=== PATIENT | female | born 1985 | race Caucasian/White ===

== ENCOUNTER 2016-12-09 19:06 | Emergency (ER) | payer MEDICARE, OTHER ==
--- NOTE | 2016-12-09 20:20 | ED ---
Lower Extremity Injury HPI - General Chief Complaint: Extremity Injury, Lower Stated Complaint: Ankle Pain Time Seen by Provider: 12/09/16 19:45 Source: patient, RN notes reviewed, old records reviewed Mode of arrival: wheelchair Limitations: no limitations - History of Present Illness Initial Comments: 31-year-old female chief complaint of left ankle pain and swelling for the past day. She reports that she's been walking more frequently over the past 3 days. She denies injury to cause the pain. She noticed the swelling and pain is mainly over the dorsum aspect of the foot and lateral aspect of the ankle. She reports that she's had some previous fractures and sprains over this foot and ankle. Denies any distal paresthesias. Reports that she has full range of motion of the toes. Patient has pain with flexion extension of the ankle.Patient denies any recent fever, chills, shortness of breath, chest pain, back pain, abdominal pain, nausea vomiting, numbness or tingling, dysuria or hematuria, constipation or diarrhea, headaches or visual changes, or any other current symptoms - Related Data Home Medications Medication Instructions Recorded Confirmed Ibuprofen [Motrin] 800 mg PO Q6H PRN 12/09/16 12/09/16 Previous Rx's Medication Instructions Recorded Ibuprofen [Motrin] 600 mg PO Q8HR PRN #20 tab 12/09/16 Allergies Allergy/AdvReac Type Severity Reaction Status Date / Time Sulfa (Sulfonamide Allergy Rash/Hives Verified 12/09/16 19:48 Antibiotics) Review of Systems ROS Statement: Those systems with pertinent positive or pertinent negative responses have been documented in the HPI. ROS Other: All systems not noted in ROS Statement are negative. Past Medical History Past Medical History: Asthma, Hypertension Additional Past Medical History / Comment(s): frequent headache, "back pain", ovarian cysts History of Any Multi-Drug Resistant Organisms: MRSA Date of last positivie culture/infection: 2012 MDRO Source:: Right thigh Past Surgical History: Tonsillectomy Additional Past Surgical History / Comment(s): removal of MRSA Past Psychological History: No Psychological Hx Reported Smoking Status: Current every day smoker Past Alcohol Use History: Occasional Past Drug Use History: None Reported General Exam Limitations: no limitations Course Vital Signs 12/09/16 19:36 Temperature 99.6 F Pulse Rate 97 Respiratory 20 Rate Blood Pressure 180/94 O2 Sat by Pulse 99 Oximetry Disposition Clinical Impression: Left ankle sprain Disposition: HOME SELF-CARE Condition: Good Instructions: Ankle Sprain (ED) Additional Instructions: Patient advised to rest, ice, and elevate extremity. Follow-up with orthopedic physician. Recommending using crutches for the next week or so to limit weightbearing activities. Return to the emergency department if any alarming signs or symptoms occur. Prescriptions: Ibuprofen [Motrin] 600 mg PO Q8HR PRN #20 tab PRN Reason: Pain Referrals: Chen Bennett MD [Primary Care Provider] - 1-2 days Time of Disposition: 20:55
--- NOTE | 2016-12-09 20:30 | XR ---
EXAMINATION TYPE: XR ankle complete LT DATE OF EXAM: 12/09/2016 COMPARISON: NONE HISTORY: Ankle pain TECHNIQUE: 3 views FINDINGS: There is an Achilles calcaneal spur. Ankle mortise is anatomic. There is some spurring at t he medial malleolus. IMPRESSION: No acute abnormality of the left ankle.
[2016-12-09 21:01] VITALS: BP 128/70; PULSE 69; RESP 16; TEMP 98.2
== END 2016-12-09 21:01 | disposition home or self-care (01) ==
LOC: EC 19:06
DX: S93.402A Sprain of unspecified ligament of left ankle, initial encounter (principal); F17.200 Nicotine dependence, unspecified, uncomplicated; Z88.2 Allergy status to sulfonamides; X50.9XXA Other and unspecified overexertion or strenuous movements or postures, initial encounter; Y93.01 Activity, walking, marching and hiking
CPT/HCPCS: 99284

== ENCOUNTER 2017-01-03 19:53 | Emergency (ER) | payer MEDICARE, OTHER ==
[2017-01-03] MEDS ORDERED: SODIUM CHLORIDE 0.9% 500 ML IV STA (20:01)
[2017-01-03] MEDS ORDERED: FAMOTIDINE 20 MG/2 ML VIAL IV STA (20:16)
[2017-01-03] MEDS ORDERED: ONDANSETRON 4 MG/2 ML VIAL IVP STA (20:16)
--- NOTE | 2017-01-03 20:19 | ED ---
Abdominal Pain HPI - General Chief Complaint: Abdominal Pain Stated Complaint: Abd Pain Time Seen by Provider: 01/03/17 20:01 Source: patient, RN notes reviewed Mode of arrival: ambulatory Limitations: no limitations - History of Present Illness Initial Comments: This a 31-year-old female presents emergency Department chief complaint abdominal pain times one week. Patient states primarily in her upper abdomen though she does complain of mild diffuse. Patient complains of that she's had increased acid reflux an episode of nausea vomiting today. She states she had a bowel movement today slightly firmer than usual though she denies any melena or hematochezia. Patient denies any fever, chills, dysuria hematuria. Denies any chance of . Patient had no prior abdominal surgeries. - Related Data Home Medications Medication Instructions Recorded Confirmed Ibuprofen [Motrin] 800 mg PO Q6H PRN 12/09/16 12/09/16 Previous Rx's Medication Instructions Recorded Ibuprofen [Motrin] 600 mg PO Q8HR PRN #20 tab 12/09/16 Lisinopril [Zestril] 10 mg PO DAILY #14 tab 01/03/17 Omeprazole [PriLOSEC] 20 mg PO AC-BRKFST #14 cap 01/03/17 Allergies Allergy/AdvReac Type Severity Reaction Status Date / Time Sulfa (Sulfonamide Allergy Rash/Hives Verified 01/03/17 19:59 Antibiotics) Review of Systems ROS Statement: Those systems with pertinent positive or pertinent negative responses have been documented in the HPI. ROS Other: All systems not noted in ROS Statement are negative. Past Medical History Past Medical History: Asthma, Hypertension Additional Past Medical History / Comment(s): frequent headache, "back pain", ovarian cysts History of Any Multi-Drug Resistant Organisms: MRSA Date of last positivie culture/infection: 2012 MDRO Source:: Right thigh Past Surgical History: Tonsillectomy Additional Past Surgical History / Comment(s): removal of MRSA Past Psychological History: No Psychological Hx Reported Smoking Status: Current every day smoker Past Alcohol Use History: Occasional Past Drug Use History: None Reported General Exam Limitations: no limitations General appearance: alert, in no apparent distress Head exam: Present: atraumatic, normocephalic, normal inspection Respiratory exam: Present: normal lung sounds bilaterally. Absent: respiratory distress, wheezes, rales, rhonchi, stridor Cardiovascular Exam: Present: regular rate, normal rhythm, normal heart sounds. Absent: systolic murmur, diastolic murmur, rubs, gallop, clicks GI/Abdominal exam: Present: soft, tenderness (Mild to moderate epigastric tenderness, mild diffuse), normal bowel sounds. Absent: distended, guarding, rebound, rigid Neurological exam: Present: alert, oriented X3, CN II-XII intact Skin exam: Present: warm, dry, intact, normal color. Absent: rash Course Vital Signs 01/03/17 19:54 Temperature 98.4 F Pulse Rate 107 H Respiratory 18 Rate Blood Pressure 215/96 O2 Sat by Pulse 100 Oximetry Medical Decision Making - Medical Decision Making 31-year-old female presented emergency from for epigastric discomfort, mild hard stool. Patient may have minimal constipation. Patient epigastric pain is related to gastritis and GERD symptoms. Patient was given Pepcid emergency department. Patient was started on omeprazole home. Patient states that she has a history of hypertension though she has not been taking medications because she does not like the way it makes her feel. Patient was given some phone emergency department. Patient be started on lisinopril at home patient parents were discussed. - Lab Data Result diagrams: 01/03/17 20:10 01/03/17 20:10 Lab Results 01/03/17 01/03/17 01/03/17 Range/Units 20:10 20:10 20:10 WBC 11.8 H (3.8-10.6) k/uL RBC 4.78 (3.80-5.40) m/uL Hgb 13.2 (11.4-16.0) gm/dL Hct 40.1 (34.0-46.0) % MCV 84.0 (80.0-100.0) fL MCH 27.6 (25.0-35.0) pg MCHC 32.9 (31.0-37.0) g/dL RDW 16.9 H (11.5-15.5) % Plt Count 294 (150-450) k/uL Neutrophils % 71 % Lymphocytes % 20 % Monocytes % 4 % Eosinophils % 4 % Basophils % 0 % Neutrophils # 8.4 H (1.3-7.7) k/uL Lymphocytes # 2.4 (1.0-4.8) k/uL Monocytes # 0.5 (0-1.0) k/uL Eosinophils # 0.4 (0-0.7) k/uL Basophils # 0.0 (0-0.2) k/uL Anisocytosis Slight Sodium 141 (137-145) mmol/L Potassium 3.8 (3.5-5.1) mmol/L Chloride 104 (98-107) mmol/L Carbon Dioxide 26 (22-30) mmol/L Anion Gap 11 mmol/L BUN 5 L (7-17) mg/dL Creatinine 0.62 (0.52-1.04) mg/dL Est GFR (MDRD) Af Amer >60 (>60 ml/min/1.73 sqM) Est GFR (MDRD) Non-Af >60 (>60 ml/min/1.73 sqM) Glucose 104 H (74-99) mg/dL Calcium 9.4 (8.4-10.2) mg/dL Total Bilirubin 0.2 (0.2-1.3) mg/dL AST 22 (14-36) U/L ALT 45 (9-52) U/L Alkaline Phosphatase 113 (38-126) U/L Total Protein 6.9 (6.3-8.2) g/dL Albumin 4.1 (3.5-5.0) g/dL Amylase 34 (30-110) U/L Lipase 96 (23-300) U/L Urine Color Urine Appearance (Clear) Urine pH (5.0-8.0) Ur Specific [place] (1.001-1.035) Urine Protein (Negative) Urine Glucose (UA) (Negative) Urine Ketones (Negative) Urine Blood (Negative) Urine Nitrite (Negative) Urine Bilirubin (Negative) Urine Urobilinogen (<2.0) mg/dL Ur Leukocyte Esterase (Negative) Urine RBC (0-5) /hpf Urine WBC (0-5) /hpf Ur Squamous Epith Cells (0-4) /hpf Urine Bacteria (None) /hpf Urine Mucus (None) /hpf Urine HCG, Qual Not Detected (Not Detectd) 01/03/17 Range/Units 20:10 WBC (3.8-10.6) k/uL RBC (3.80-5.40) m/uL Hgb (11.4-16.0) gm/dL Hct (34.0-46.0) % MCV (80.0-100.0) fL MCH (25.0-35.0) pg MCHC (31.0-37.0) g/dL RDW (11.5-15.5) % Plt Count (150-450) k/uL Neutrophils % % Lymphocytes % % Monocytes % % Eosinophils % % Basophils % % Neutrophils # (1.3-7.7) k/uL Lymphocytes # (1.0-4.8) k/uL Monocytes # (0-1.0) k/uL Eosinophils # (0-0.7) k/uL Basophils # (0-0.2) k/uL Anisocytosis Sodium (137-145) mmol/L Potassium (3.5-5.1) mmol/L Chloride (98-107) mmol/L Carbon Dioxide (22-30) mmol/L Anion Gap mmol/L BUN (7-17) mg/dL Creatinine (0.52-1.04) mg/dL Est GFR (MDRD) Af Amer (>60 ml/min/1.73 sqM) Est GFR (MDRD) Non-Af (>60 ml/min/1.73 sqM) Glucose (74-99) mg/dL Calcium (8.4-10.2) mg/dL Total Bilirubin (0.2-1.3) mg/dL AST (14-36) U/L ALT (9-52) U/L Alkaline Phosphatase (38-126) U/L Total Protein (6.3-8.2) g/dL Albumin (3.5-5.0) g/dL Amylase (30-110) U/L Lipase (23-300) U/L Urine Color Yellow Urine Appearance Cloudy H (Clear) Urine pH 6.5 (5.0-8.0) Ur Specific [place] 1.016 (1.001-1.035) Urine Protein Trace H (Negative) Urine Glucose (UA) Negative (Negative) Urine Ketones Negative (Negative) Urine Blood Negative (Negative) Urine Nitrite Negative (Negative) Urine Bilirubin Negative (Negative) Urine Urobilinogen <2.0 (<2.0) mg/dL Ur Leukocyte Esterase Negative (Negative) Urine RBC 2 (0-5) /hpf Urine WBC 1 (0-5) /hpf Ur Squamous Epith Cells 8 H (0-4) /hpf Urine Bacteria Occasional H (None) /hpf Urine Mucus Rare H (None) /hpf Urine HCG, Qual (Not Detectd) Disposition Clinical Impression: Abdominal pain, Gastritis, Hypertension Disposition: HOME SELF-CARE Condition: Stable Instructions: Gastritis (ED) Additional Instructions: Please return to the Emergency Department if symptoms worsen or any other concerns. Prescriptions: Lisinopril [Zestril] 10 mg PO DAILY #14 tab Omeprazole [PriLOSEC] 20 mg PO AC-BRKFST #14 cap Referrals: Chen Bennett MD [Primary Care Provider] - 1-2 days Time of Disposition: 20:43
[2017-01-03] MEDS ORDERED: LISINOPRIL 10 MG TAB PO STA (20:21)
[2017-01-03 20:28] LABS: Anisocytosis Slight; Basophils % (A) 0 %; CH 28.2; CHCM 33.7; Eosinophils # (A) 0.4 k/uL (0-0.7); Eosinophils % (A) 4 %; HCT 40.1 % (34.0-46.0); HDW 3.17; HGB 13.2 gm/dL (11.4-16.0); Luc # (Auto) 0.15; Luc % (Auto) 1; Lymphocytes # (A) 2.4 k/uL (1.0-4.8); Lymphocytes % (A) 20 %; MCH 27.6 pg (25.0-35.0); MCHC 32.9 g/dL (31.0-37.0); Mean Platelet Volume 7.5; Monocytes # (A) 0.5 k/uL (0-1.0); Monocytes % (A) 4 %; Neutrophils # (A) 8.4 k/uL (1.3-7.7); Neutrophils % (A) 71 %; RBC 4.78 m/uL (3.80-5.40); RDW 16.9 % (11.5-15.5); WBC 11.8 k/uL (3.8-10.6); WBC (Perox) 11.91
[2017-01-03 20:32] LABS: Appearance,Urine Cloudy (Clear); Bacteria,Urine Occasional /hpf; Bilirubin,Urine Negative (Negative); Glucose,Urine (UA) Negative (Negative); Ketones,Urine Negative (Negative); Leukocyte Esterase,Urine Negative (Negative); Mucus,Urine Rare /hpf; Nitrite,Urine Negative (Negative); PH, Urine 6.5 (5.0-8.0); Particle Count 6714; Protein,Urine Trace (Negative); RBC,Urine 2 /hpf (0-5); Specific Gravity,Urine 1.016 (1.001-1.035); Squamous Epithelial Cell,Urine 8 /hpf (0-4); UA Billing (MACRO vs. MICRO) MICRO; Urobilinogen,Urine <2.0 mg/dL (<2.0); WBC,Urine 1 /hpf (0-5)
--- NOTE | 2017-01-03 20:33 | XR ---
EXAMINATION TYPE: XR KUB DATE OF EXAM: 01/03/2017 COMPARISON: NONE HISTORY: Epigastric pain TECHNIQUE: 2 views FINDINGS: There is no sign of intestinal obstruction or pneumoperitoneum. Fecal pattern is normal. Millicent ng bases are clear. There are no pathologic calcifications over the kidneys. IMPRESSION: Nonacute abdomen. No change.
[2017-01-03 20:38] LABS: ALT 45 U/L (9-52); AST 22 U/L (14-36); Alkaline Phosphatase 113 U/L (38-126); Amylase 34 U/L (30-110); Anion Gap 11 mmol/L; Blood Urea Nitrogen 5 mg/dL (7-17); Calcium 9.4 mg/dL (8.4-10.2); Carbon Dioxide 26 mmol/L (22-30); Chloride 104 mmol/L (98-107); Glucose 104 mg/dL (74-99); Non-African American GFR(MDRD) >60 (>60 ml/min/1.73 sqM); Potassium 3.8 mmol/L (3.5-5.1); Sodium 141 mmol/L (137-145); Total Bilirubin 0.2 mg/dL (0.2-1.3); Total Protein 6.9 g/dL (6.3-8.2)
[2017-01-03 21:25] VITALS: BP 183/88; PULSE 79; RESP 18; TEMP 98.1
== END 2017-01-03 21:25 | disposition home or self-care (01) ==
LOC: EC 19:53
DX: K29.70 Gastritis, unspecified, without bleeding (principal); I10 Essential (primary) hypertension; F17.200 Nicotine dependence, unspecified, uncomplicated; Z88.2 Allergy status to sulfonamides
CPT/HCPCS: 99284; 96374; 96375; 96361; 36415; 80053; 82150; 83690; 85025; 81001; 81025; 74000; J2405

== ENCOUNTER 2017-01-08 09:21 | Emergency (ER) | payer MEDICARE, OTHER ==
[2017-01-08] MEDS ORDERED: KETOROLAC 30 MG/ML 1 ML VIAL IVP STA (10:16)
[2017-01-08] MEDS ORDERED: ONDANSETRON 4 MG/2 ML VIAL IVP STA (10:16)
[2017-01-08 10:49] LABS: Anisocytosis Slight; Basophils % (A) 0 %; CH 27.2; CHCM 33.1; Eosinophils # (A) 0.2 k/uL (0-0.7); Eosinophils % (A) 3 %; HCT 42.3 % (34.0-46.0); HGB 14.1 gm/dL (11.4-16.0); Luc % (Auto) 2; Lymphocytes # (A) 1.9 k/uL (1.0-4.8); Lymphocytes % (A) 20 %; MCH 27.6 pg (25.0-35.0); MCHC 33.4 g/dL (31.0-37.0); MCV 82.8 fL (80.0-100.0); Mean Platelet Volume 6.9; Monocytes # (A) 0.4 k/uL (0-1.0); Monocytes % (A) 5 %; Neutrophils # (A) 6.8 k/uL (1.3-7.7); Neutrophils % (A) 71 %; RBC 5.11 m/uL (3.80-5.40); RDW 16.1 % (11.5-15.5); WBC 9.6 k/uL (3.8-10.6); WBC (Perox) 9.69
[2017-01-08 10:55] LABS: Appearance,Urine Cloudy (Clear); Bilirubin,Urine Negative (Negative); Glucose,Urine (UA) Negative (Negative); Ketones,Urine Negative (Negative); Leukocyte Esterase,Urine Negative (Negative); Mucus,Urine Rare /hpf; Nitrite,Urine Negative (Negative); PH, Urine 5.5 (5.0-8.0); Particle Count 7251; Protein,Urine Trace (Negative); Specific Gravity,Urine 1.018 (1.001-1.035); Squamous Epithelial Cell,Urine 23 /hpf (0-4); UA Billing (MACRO vs. MICRO) MICRO; Urobilinogen,Urine <2.0 mg/dL (<2.0); WBC,Urine 2 /hpf (0-5)
[2017-01-08 10:56] LABS: ALT 33 U/L (9-52); AST 19 U/L (14-36); Alkaline Phosphatase 118 U/L (38-126); Anion Gap 11 mmol/L; Blood Urea Nitrogen 6 mg/dL (7-17); Calcium 9.3 mg/dL (8.4-10.2); Carbon Dioxide 24 mmol/L (22-30); Chloride 105 mmol/L (98-107); Glucose 99 mg/dL (74-99); Non-African American GFR(MDRD) >60 (>60 ml/min/1.73 sqM); Potassium 4.4 mmol/L (3.5-5.1); Sodium 140 mmol/L (137-145); Total Bilirubin 0.3 mg/dL (0.2-1.3); Total Protein 6.8 g/dL (6.3-8.2)
--- NOTE | 2017-01-08 11:26 | US ---
EXAMINATION TYPE: US transvaginal DATE OF EXAM: 01/08/2017 COMPARISON: NONE CLINICAL HISTORY: Pain. Severe pelvic pain today especially at left ovary with TV US; irregular mense s TECHNIQUE: Transvaginal (TV) Date of LMP: November 2016 EXAM MEASUREMENTS: Uterus: 8.3 x 4.9 x 4.2 cm Endometrial Stripe: 1.2 cm Right Ovary: 2.9 x 2.3 x 2.2 cm Left Ovary: 3.6 x 2.6 x 2.5 cm 1. Uterus: Anteverted; small Nabothian cyst in CX = 0.2 x 0.2 x 0.2cm 2. Endometrium: thickness wnl for LMP 1 month prior 3. Right Ovary: small follicle seen = 0.3 x 0.3 x 0.2cm 4. Left Ovary: small follicle seen as hypoechoic cyst = 1.0 x 0.9 x 0.9cm ; area of pain per patient with TV US Spectral, color and waveform doppler imaging shows good arterial and venous flow within the ovaries ; there is no evidence for ovarian torsion. 5. Bilateral Adnexa: wnl 6. Posterior cul-de-sac: wnl IMPRESSION: No significant abnormality is evident.
--- NOTE | 2017-01-08 11:45 | ED ---
Female Urogenital HPI - General Chief complaint: Urogenital Stated complaint: Abdominal pain Time Seen by Provider: 01/08/17 09:33 Source: patient, RN notes reviewed, old records reviewed Mode of arrival: EMS Limitations: no limitations - History of Present Illness Initial comments: His is a 31-year-old female chief complaint of severe left-sided pelvic pain. Patient reports that she thinks that she has a left ovarian cyst that burst. She reports that she woke up with sudden onset of pain and feel warm sensation over her abdomen. Patient reports that she's had no urinary symptoms including dysuria or hematuria. She denies any change in bowel movements. She denies any nausea or vomiting. Patient states that she's had this happen before and similar symptoms were found to be a ruptured ovarian cyst. Patient states that she is no chance of . She states she had her last menstrual cycle approximately 3 weeks ago.Patient denies any recent fever, chills, shortness of breath, chest pain, back pain, abdominal pain, nausea vomiting, numbness or tingling, dysuria or hematuria, constipation or diarrhea, headaches or visual changes, or any other current symptoms - Related Data Home Medications Medication Instructions Recorded Confirmed Varenicline [Chantix] 0.5 mg PO DIRECTED 01/08/17 01/08/17 Previous Rx's Medication Instructions Recorded Lisinopril [Zestril] 10 mg PO DAILY #14 tab 01/03/17 Omeprazole [PriLOSEC] 20 mg PO AC-BRKFST #14 cap 01/03/17 Ibuprofen [Motrin] 800 mg PO TID #30 tab 01/08/17 traMADol HCl [Ultram] 50 mg PO Q6H PRN #10 tab 01/08/17 Allergies Allergy/AdvReac Type Severity Reaction Status Date / Time Sulfa (Sulfonamide Allergy Rash/Hives Verified 01/08/17 09:51 Antibiotics) Review of Systems ROS Statement: Those systems with pertinent positive or pertinent negative responses have been documented in the HPI. ROS Other: All systems not noted in ROS Statement are negative. Past Medical History Past Medical History: Asthma, Hypertension Additional Past Medical History / Comment(s): frequent headache, "back pain", ovarian cysts History of Any Multi-Drug Resistant Organisms: MRSA Date of last positivie culture/infection: 2012 MDRO Source:: Right thigh Past Surgical History: Tonsillectomy Additional Past Surgical History / Comment(s): removal of MRSA Past Psychological History: No Psychological Hx Reported Smoking Status: Current every day smoker Past Alcohol Use History: Occasional Past Drug Use History: None Reported General Exam - General Exam Comments Initial Comments: 31-year-old female. No acute distress. Limitations: no limitations General appearance: alert, in no apparent distress Head exam: Present: atraumatic, normocephalic, normal inspection Eye exam: Present: normal appearance ENT exam: Present: normal exam, mucous membranes moist Neck exam: Present: normal inspection. Absent: tenderness, meningismus, lymphadenopathy Respiratory exam: Present: normal lung sounds bilaterally. Absent: respiratory distress, wheezes, rales, rhonchi, stridor Cardiovascular Exam: Present: regular rate, normal rhythm, normal heart sounds. Absent: systolic murmur, diastolic murmur, rubs, gallop, clicks GI/Abdominal exam: Present: soft, normal bowel sounds. Absent: distended, tenderness, guarding, rebound, rigid Extremities exam: Present: normal inspection, full ROM, normal capillary refill. Absent: tenderness, pedal edema, joint swelling, calf tenderness Back exam: Present: normal inspection Neurological exam: Present: alert, oriented X3, CN II-XII intact Psychiatric exam: Present: normal affect, normal mood Course Vital Signs 01/08/17 01/08/17 09:23 11:33 Temperature 98.8 F Pulse Rate 95 76 Respiratory 18 18 Rate Blood Pressure 188/102 153/76 O2 Sat by Pulse 98 97 Oximetry Medical Decision Making - Medical Decision Making 31-year-old female chief complaint of left-sided pelvic pain acute onset. Patient transvaginal ultrasound showed no evidence of any abnormalities. Laboratory was reviewed and unremarkable. Denies any vaginal discharge or concern for STDs. No signs of urinary tract infection. Patient will be discharged at this time with a short course of a temperature medicine. Discussed close follow-up with care physician. Patient understands treatment plan will comply. - Lab Data Result diagrams: 01/08/17 10:30 01/08/17 10:30 Lab Results 01/08/17 01/08/17 01/08/17 Range/Units 10:30 10:30 10:30 WBC 9.6 (3.8-10.6) k/uL RBC 5.11 (3.80-5.40) m/uL Hgb 14.1 (11.4-16.0) gm/dL Hct 42.3 (34.0-46.0) % MCV 82.8 (80.0-100.0) fL MCH 27.6 (25.0-35.0) pg MCHC 33.4 (31.0-37.0) g/dL RDW 16.1 H (11.5-15.5) % Plt Count 302 (150-450) k/uL Neutrophils % 71 % Lymphocytes % 20 % Monocytes % 5 % Eosinophils % 3 % Basophils % 0 % Neutrophils # 6.8 (1.3-7.7) k/uL Lymphocytes # 1.9 (1.0-4.8) k/uL Monocytes # 0.4 (0-1.0) k/uL Eosinophils # 0.2 (0-0.7) k/uL Basophils # 0.0 (0-0.2) k/uL Anisocytosis Slight Sodium 140 (137-145) mmol/L Potassium 4.4 (3.5-5.1) mmol/L Chloride 105 (98-107) mmol/L Carbon Dioxide 24 (22-30) mmol/L Anion Gap 11 mmol/L BUN 6 L (7-17) mg/dL Creatinine 0.53 (0.52-1.04) mg/dL Est GFR (MDRD) Af Amer >60 (>60 ml/min/1.73 sqM) Est GFR (MDRD) Non-Af >60 (>60 ml/min/1.73 sqM) Glucose 99 (74-99) mg/dL Calcium 9.3 (8.4-10.2) mg/dL Total Bilirubin 0.3 (0.2-1.3) mg/dL AST 19 (14-36) U/L ALT 33 (9-52) U/L Alkaline Phosphatase 118 (38-126) U/L Total Protein 6.8 (6.3-8.2) g/dL Albumin 4.1 (3.5-5.0) g/dL Urine Color Urine Appearance (Clear) Urine pH (5.0-8.0) Ur Specific [place] (1.001-1.035) Urine Protein (Negative) Urine Glucose (UA) (Negative) Urine Ketones (Negative) Urine Blood (Negative) Urine Nitrite (Negative) Urine Bilirubin (Negative) Urine Urobilinogen (<2.0) mg/dL Ur Leukocyte Esterase (Negative) Urine WBC (0-5) /hpf Ur Squamous Epith Cells (0-4) /hpf Urine Mucus (None) /hpf Urine HCG, Qual Not Detected (Not Detectd) 01/08/17 Range/Units 10:30 WBC (3.8-10.6) k/uL RBC (3.80-5.40) m/uL Hgb (11.4-16.0) gm/dL Hct (34.0-46.0) % MCV (80.0-100.0) fL MCH (25.0-35.0) pg MCHC (31.0-37.0) g/dL RDW (11.5-15.5) % Plt Count (150-450) k/uL Neutrophils % % Lymphocytes % % Monocytes % % Eosinophils % % Basophils % % Neutrophils # (1.3-7.7) k/uL Lymphocytes # (1.0-4.8) k/uL Monocytes # (0-1.0) k/uL Eosinophils # (0-0.7) k/uL Basophils # (0-0.2) k/uL Anisocytosis Sodium (137-145) mmol/L Potassium (3.5-5.1) mmol/L Chloride (98-107) mmol/L Carbon Dioxide (22-30) mmol/L Anion Gap mmol/L BUN (7-17) mg/dL Creatinine (0.52-1.04) mg/dL Est GFR (MDRD) Af Amer (>60 ml/min/1.73 sqM) Est GFR (MDRD) Non-Af (>60 ml/min/1.73 sqM) Glucose (74-99) mg/dL Calcium (8.4-10.2) mg/dL Total Bilirubin (0.2-1.3) mg/dL AST (14-36) U/L ALT (9-52) U/L Alkaline Phosphatase (38-126) U/L Total Protein (6.3-8.2) g/dL Albumin (3.5-5.0) g/dL Urine Color Yellow Urine Appearance Cloudy H (Clear) Urine pH 5.5 (5.0-8.0) Ur Specific [place] 1.018 (1.001-1.035) Urine Protein Trace H (Negative) Urine Glucose (UA) Negative (Negative) Urine Ketones Negative (Negative) Urine Blood Negative (Negative) Urine Nitrite Negative (Negative) Urine Bilirubin Negative (Negative) Urine Urobilinogen <2.0 (<2.0) mg/dL Ur Leukocyte Esterase Negative (Negative) Urine WBC 2 (0-5) /hpf Ur Squamous Epith Cells 23 H (0-4) /hpf Urine Mucus Rare H (None) /hpf Urine HCG, Qual (Not Detectd) Disposition Clinical Impression: Pelvic pain, Left ovarian cyst Disposition: HOME SELF-CARE Condition: Good Instructions: Ovarian Cyst (ED) Additional Instructions: Follow-up with PAIN COORDINATOR. Return to the emergency department if any alarming signs or symptoms occur. Prescriptions: Ibuprofen [Motrin] 800 mg PO TID #30 tab traMADol HCl [Ultram] 50 mg PO Q6H PRN #10 tab PRN Reason: Pain Referrals: Chen Bennett MD [Primary Care Provider] - 1-2 days Time of Disposition: 11:48
[2017-01-08 12:13] VITALS: BP 150/85; PULSE 71; RESP 24; TEMP 98.4
== END 2017-01-08 12:14 | disposition home or self-care (01) ==
LOC: EC 09:21
DX: N83.202 Unspecified ovarian cyst, left side (principal); F17.200 Nicotine dependence, unspecified, uncomplicated; Z79.899 Other long term (current) drug therapy; Z88.2 Allergy status to sulfonamides
CPT/HCPCS: 36415; 80053; 85025; 81001; 81025; 87086; 93975; 76830; 99285; 96374; 96375; J2405; J1885

== ENCOUNTER → 2017-01-09 | Outpatient (CLI) | payer MEDICARE, OTHER ==
--- NOTE | 2017-01-10 11:49 | WWHP ---
DATE OF SERVICE: 01/09/2017 CHIEF COMPLAINT: The patient is here for her routine gynecologic exam. HPI: This is a 31-year-old, G0, with an LMP of 12/01/16. She states her periods have been slightly irregular during the past year and have been about every 1 to 2 months. Prior to one year ago, the periods were regular every month. She is currently not sexually active. She was sexually active earlier in the year and did use condoms. She states she was in the emergency room yesterday because of pelvic pain and she feels like she had a ruptured ovarian cyst. She states she has had problems with ovarian cysts in the past. She states she was told in the emergency room that she likely had a ruptured ovarian cyst and she did have a pelvic ultrasound yesterday. She states it has been about 2 years since her last pelvic exam. PAST MEDICAL HISTORY: Chronic hypertension, gastroesophageal reflux disease and asthma. She was also treated for MRSA in 2012 and she had this in the back of a leg. MEDICATIONS: 1. Albuterol inhaler p.r.n. 2. Omeprazole 20 mg daily. 3. Lisinopril 10 mg daily. 4. Chantix daily. 5. Motrin 800 mg p.r.n. Allergies to SULFA. PAST SURGICAL HISTORY: Tonsillectomy in the past. 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 She has no other history of STDs. SOCIAL HISTORY: She smokes about a half a pack of cigarettes per day, but is trying to quit and is currently on Chantix. She has about 3 alcohol containing drinks per month and occasionally uses marijuana. She denies any other drug use. She is currently not seeing anybody at this time and has not been sexually active for more than 4 months. She states she has had a total of 4 sexual partners in her lifetime. 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 FAMILY HISTORY: Mother has breast cancer. She also has 2 maternal aunts who also has had breast cancer and a maternal aunt who had throat cancer. A maternal uncle had prostate cancer. REVIEW OF SYSTEMS: Weight has been stable. She denies respiratory, cardiac or GI problems. PHYSICAL EXAM: Blood pressure is 128/71. Height is 5 feet 7 inches. Weight 284 pounds. Temperature 98.0. Pulse 86. This is a well-developed, obese white female who is alert and oriented x3.in no acute distress. HEENT is within normal limits. NECK: Supple without mass or thyromegaly. CHEST AND LUNGS: Clear to auscultation. HEART: Regular rate and rhythm. Breasts are without mass or discharge. Axillary exam is negative for adenopathy. BACK: Negative for CVA tenderness. Abdomen is obese soft and mildly tender in the suprapubic region and there is no rebound tenderness. There are no palpable abdominal masses. PELVIC EXAM; Normal external genitalia. Cervix and vagina appear normal. There is no unusual vaginal discharge. There is no cervical motion tenderness. There is a mild tenderness in the left adnexal area without a palpable pelvic mass. The uterus is mid position, nongravid size and nontender. There is no right adnexal mass or tenderness. Rectal vaginal exam is negative for mass or tenderness. EXTREMITIES: Nontender. ADDITIONAL STUDIES: From 01/08/17, pelvic ultrasound shows no significant abnormality. White blood cell count was 9.6. Hemoglobin 14.1. Urinalysis was unremarkable and urine hCG was negative. IMPRESSION: 1. A 31-year-old female with recent emergency room visit for lower abdominal and pelvic pain. 2. Pelvic ultrasound was negative and this may have been related to a ruptured ovarian cyst. PID is unlikely based on the lack of cervical motion tenderness and normal white blood cell count. 3. Strong family history of breast cancer including mother and 2 maternal aunts. She states her mother was approximately 40 years old and her aunts were their 40s. 4. Mild menstrual irregularity during the past year with menses about every 1 to 2 months. PLAN: 1. Pap smear was performed. 2. Self-breast examination was discussed. 3. I have recommended a baseline screening mammogram based on her family history of young women with breast cancer. 4. GC and chlamydia testing from the cervix have been obtained. 5. I have recommended thyroid testing because of her slight menstrual irregularity. She states this was drawn 2 days ago by her primary care doctor with results pending. 6. The patient will keep a menstrual calendar and return if she is having greater menstrual problems. 7. She will use the Motrin as directed for her abdominal and pelvic pain. 8. She will call if her symptoms are not improving. 9. STD prevention was discussed. I have stressed the importance of limiting sexual partners and using condoms if she is sexually active. 10. She will return in one year and [facility]
== END ==
LOC: WWCWWP 10:26
PROVIDERS: ATTEND Obstetrics & Gynecology
DX: R10.2 Pelvic and perineal pain (principal); Z11.3 Encounter for screening for infections with a predominantly sexual mode of transmission
CPT/HCPCS: 87491; 87591

== ENCOUNTER 2017-02-05 22:02 | Emergency (ER) | payer MEDICARE, OTHER ==
--- NOTE | 2017-02-05 23:17 | XR ---
EXAM: XR Left Hip With Pelvis When Performed, 3 or More Views CLINICAL HISTORY: Reason: Pain TECHNIQUE: Three or more views of the left hip, with pelvis when performed. COMPARISON: No relevant prior studies available. FINDINGS: Bones/joints: Oblique jagged lucency is seen overlying the junction of the left femoral head and neck. This lucency appears to extend past the proximal femur. Constellation of findings are suggestive of a lateral left acetabular fracture. No definitive evidence of a left femoral fracture on these images. Bilateral pincer-type femoroacetabular impingement is suggested with associated mild/moderate degenerative changes. No dislocation. Soft tissues: Unremarkable. IMPRESSION: 1. Oblique jagged lucency overlying the junction of the left femoral head and neck. This lucency appears to extend past the proximal femur. Constellation of findings are suggestive of a lateral left acetabular fracture. No definitive evidence of a left femoral fracture on these images. 2. 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
[2017-02-05] MEDS ORDERED: NALOXONE 0.4 MG/ML 1 ML VIAL IV PRN (23:31)
[2017-02-05] MEDS ORDERED: MORPHINE SULFATE 4 MG/ML SYRINGE IV PRN (23:31)
[2017-02-05] MEDS ORDERED: ONDANSETRON 4 MG/2 ML VIAL IVP PRN (23:31)
--- NOTE | 2017-02-05 23:31 | ED ---
Lower Extremity Injury HPI - General Chief Complaint: Extremity Injury, Lower Stated Complaint: Fx Hip- Sent by [email or web address] Time Seen by Provider: 02/05/17 22:19 Source: patient, RN notes reviewed Mode of arrival: wheelchair Limitations: no limitations - History of Present Illness Initial Comments: This a 31-year-old female presents emergency department should his left hip pain. Patient states she's had pain for last 2 days with no injury. She states she went to [facility] urgent care who took an x-ray which showed a fracture of her left hip. She states that she was never struck her hip and had no known injury. She states they she is woke up with discomfort. Patient states she's had no prior injuries. - Related Data Home Medications Medication Instructions Recorded Confirmed Lisinopril [Prinivil] 20 mg PO DAILY 02/05/17 02/05/17 Omeprazole [PriLOSEC] 20 mg PO DAILY 02/05/17 02/05/17 Varenicline Tartrate [Chantix] 1 tab PO BID 02/05/17 02/05/17 Allergies Allergy/AdvReac Type Severity Reaction Status Date / Time Sulfa (Sulfonamide Allergy Rash/Hives Verified 02/05/17 22:34 Antibiotics) Review of Systems ROS Statement: Those systems with pertinent positive or pertinent negative responses have been documented in the HPI. ROS Other: All systems not noted in ROS Statement are negative. Past Medical History Past Medical History: Asthma, Hypertension Additional Past Medical History / Comment(s): frequent headache, "back pain", ovarian cysts History of Any Multi-Drug Resistant Organisms: MRSA Date of last positivie culture/infection: 2012 MDRO Source:: Right thigh Past Surgical History: Tonsillectomy Additional Past Surgical History / Comment(s): removal of MRSA Past Psychological History: No Psychological Hx Reported Smoking Status: Current some day smoker Past Alcohol Use History: Occasional Past Drug Use History: Marijuana General Exam Limitations: no limitations General appearance: alert, in no apparent distress Respiratory exam: Present: normal lung sounds bilaterally. Absent: respiratory distress, wheezes, rales, rhonchi, stridor Cardiovascular Exam: Present: regular rate, normal rhythm, normal heart sounds. Absent: systolic murmur, diastolic murmur, rubs, gallop, clicks GI/Abdominal exam: Present: soft, normal bowel sounds. Absent: distended, tenderness, guarding, rebound, rigid Extremities exam: Present: other (Tenderness to the left hip there is pain with range of motion there is no shortening or rotation noted neurovascular intact) Course Vital Signs 02/05/17 22:16 Temperature 97.2 F L Pulse Rate 108 H Respiratory 18 Rate Blood Pressure 140/84 O2 Sat by Pulse 99 Oximetry Medical Decision Making - Medical Decision Making Dr. Loyola did discuss case with Dr. Galan who will admit the patient for surgery. Disposition Clinical Impression: Hip fracture, left Disposition: ADMITTED IP TO THIS HOSP Condition: Stable Referrals: Chen Bennett MD [Primary Care Provider] - 1-2 days
--- NOTE | 2017-02-06 00:03 | CT ---
EXAM: CT Left Lower Extremity Without Intravenous Contrast, Hip CLINICAL HISTORY: Left hip pain. TECHNIQUE: Axial computed tomography images of the left hip without intravenous contrast. DLP is 1084.30 mGy-cm. This CT exam was performed using one or more of the following dose reduction techniques: automated exposure control, adjustment of the mA and/or kV according to patient size, and/or use of iterative reconstruction technique. COMPARISON: Radiographs of the pelvis performed the same day. FINDINGS: Bones/joints: Oblique jagged acute versus subacute appearing nondisplaced non-comminuted fracture involving the posterior lateral acetabulum. Pincer-type femoroacetabular impingement is suggested. Mild/moderate degenerative changes are noted involving the left hip. No dislocation. Soft tissues: No significant soft tissue swelling is seen. IMPRESSION: 1. Oblique jagged acute versus subacute appearing nondisplaced non- comminuted fracture involving the posterolateral acetabulum. MRI of the left hip may be obtained for further evaluation. 2. Pincer-type femoroacetabular impingement is suggested. Mild/moderate degenerative changes involving the left hip.
[2017-02-06 00:15] LABS: Anisocytosis Slight; Basophils # (A) 0.1 k/uL (0-0.2); Basophils % (A) 1 %; CHCM 34.3; Eosinophils # (A) 0.4 k/uL (0-0.7); Eosinophils % (A) 3 %; HCT 38.8 % (34.0-46.0); HDW 3.04; Luc # (Auto) 0.13; Luc % (Auto) 1; Lymphocytes # (A) 3.1 k/uL (1.0-4.8); Lymphocytes % (A) 25 %; MCH 27.5 pg (25.0-35.0); MCHC 33.5 g/dL (31.0-37.0); Mean Platelet Volume 7.6; Monocytes # (A) 0.6 k/uL (0-1.0); Monocytes % (A) 5 %; Neutrophils # (A) 8.1 k/uL (1.3-7.7); Neutrophils % (A) 66 %; RBC 4.73 m/uL (3.80-5.40); RDW 16.2 % (11.5-15.5); WBC 12.3 k/uL (3.8-10.6)
--- NOTE | 2017-02-06 00:21 | ED ---
Medical Decision Making - Medical Decision Making 31-year-old female presented for left hip injury. Initially was felt that she had a left femoral fracture though this is an acetabular fracture on CT. Patient will be transferred to [facility] [place] for evaluation orthopedic surgeon. Disposition Clinical Impression: Left acetabular fracture Disposition: OTHER INSTITUTION NOT DEFINED Condition: Stable Referrals: Chen Bennett MD [Primary Care Provider] - 1-2 days Time of Disposition: 00:12 - Out of Hospital Transfer - Req. Specs Out of Hospital Transfer - Requested Specifics: Other Emergency Center ([facility])
[2017-02-06 00:23] LABS: ALT 54 U/L (9-52); AST 25 U/L (14-36); Alkaline Phosphatase 129 U/L (38-126); Amorphous Sediment,Urine Rare /hpf; Anion Gap 12 mmol/L; Appearance,Urine Cloudy (Clear); Bilirubin,Urine Negative (Negative); Blood Urea Nitrogen 9 mg/dL (7-17); Calcium 9.4 mg/dL (8.4-10.2); Carbon Dioxide 24 mmol/L (22-30); Chloride 103 mmol/L (98-107); Glucose 143 mg/dL (74-99); Glucose,Urine (UA) Negative (Negative); Ketones,Urine Negative (Negative); Leukocyte Esterase,Urine Negative (Negative); Mucus,Urine Rare /hpf; Nitrite,Urine Negative (Negative); Non-African American GFR(MDRD) >60 (>60 ml/min/1.73 sqM); Particle Count 2015; Potassium 4.3 mmol/L (3.5-5.1); Protein,Urine Negative (Negative); RBC,Urine 1 /hpf (0-5); Sodium 139 mmol/L (137-145); Specific Gravity,Urine 1.012 (1.001-1.035); Squamous Epithelial Cell,Urine 3 /hpf (0-4); Total Bilirubin 0.2 mg/dL (0.2-1.3); Total Protein 6.7 g/dL (6.3-8.2); UA Billing (MACRO vs. MICRO) MICRO; Urobilinogen,Urine <2.0 mg/dL (<2.0); WBC,Urine 1 /hpf (0-5)
[2017-02-06 00:26] VITALS: BP 153/78; PULSE 112; RESP 20; TEMP 98.3
[2017-02-06 00:26] LABS: Partial Thromboplastin Time 25.2 sec (22.0-30.0); Prothrombin Time 10.2 sec (9.0-12.0)
== END 2017-02-06 01:11 | disposition short-term general hospital (02) ==
LOC: EC 22:02
DX: S32.402A Unspecified fracture of left acetabulum, initial encounter for closed fracture (principal); I10 Essential (primary) hypertension; F17.200 Nicotine dependence, unspecified, uncomplicated; Z88.2 Allergy status to sulfonamides; Z79.899 Other long term (current) drug therapy; X58.XXXA Exposure to other specified factors, initial encounter
CPT/HCPCS: 36415; 80053; 85025; 85610; 85730; 81001; 81025; 73502; 73700; 99285; 96374; 96375; J2270; J2405

== ENCOUNTER 2017-08-06 18:15 | Emergency (ER) | payer MEDICARE, OTHER ==
[2017-08-06] MEDS ORDERED: KETOROLAC 30 MG/ML 1 ML VIAL IVP STA (18:42)
[2017-08-06] MEDS ORDERED: SODIUM CHLORIDE 0.9% 1,000 ML IV STA (18:42)
[2017-08-06] MEDS ORDERED: diphenhydrAMINE 50 MG/ML 1 ML VIAL IVP STA (18:42)
[2017-08-06] MEDS ORDERED: METOCLOPRAMIDE 5 MG/ML 2 ML VIAL IVP STA (18:42)
--- NOTE | 2017-08-06 18:50 | ED ---
Headache HPI - General Chief Complaint: Headache Stated Complaint: Bad headache Time Seen by Provider: 08/06/17 18:33 Source: RN notes reviewed Mode of arrival: ambulatory Limitations: no limitations - History of Present Illness Initial Comments: This is a 32-year-old female who presents to the emergency department with chief complaint of headache. Patient reports a history of frequent headaches. Denies any recent injuries or head trauma. Patient states that she has had a headache on and off for the past week and a half. She states that today the headache became worse. She states that the headache involves her entire head and feels pressure-like. She states that the headache is constant. She states that she has taken Motrin this morning and Zofran for nausea. Patient states that there are no aggravating or relieving factors. Denies fever, chills, chest pain, shortness of breath, abdominal pain, vomiting, constipation or diarrhea, dysuria or hematuria, numbness or tingling, or vision changes. - Related Data Home Medications Medication Instructions Recorded Confirmed Lisinopril [Prinivil] 20 mg PO DAILY 02/05/17 08/06/17 Omeprazole [PriLOSEC] 20 mg PO DAILY 02/05/17 08/06/17 Ibuprofen [Motrin Ib] 200 - 400 mg PO Q6H PRN 08/06/17 08/06/17 Allergies Allergy/AdvReac Type Severity Reaction Status Date / Time Sulfa (Sulfonamide Allergy Rash/Hives Verified 08/06/17 19:03 Antibiotics) Review of Systems ROS Statement: Those systems with pertinent positive or pertinent negative responses have been documented in the HPI. ROS Other: All systems not noted in ROS Statement are negative. Past Medical History Past Medical History: Asthma, Hypertension Additional Past Medical History / Comment(s): frequent headache, "back pain", ovarian cysts History of Any Multi-Drug Resistant Organisms: MRSA Date of last positivie culture/infection: 2012 MDRO Source:: Right thigh Past Surgical History: Tonsillectomy Additional Past Surgical History / Comment(s): removal of MRSA Past Psychological History: No Psychological Hx Reported Smoking Status: Current some day smoker Past Alcohol Use History: Occasional Past Drug Use History: Marijuana General Exam - General Exam Comments Initial Comments: General: Awake and alert, well-developed; in no apparent distress. HEENT: Head atraumatic, normocephalic. Pupils are equal, round and reactive to light. Extraocular movements intact. Oropharynx moist without erythema or exudate. Bilateral TMs pearly without effusion. Neck: Supple. Normal ROM. No tenderness. Cardiovascular: Regular rate and rhythm. No murmurs, rubs or gallops. Chest symmetrical. Respiratory: Lungs clear to auscultation bilaterally. No wheezes, rales or rhonchi. Normal respiratory effort with no use of accessory muscles. Skin: [place], warm and dry without rashes or lesions. Neurological: Alert and oriented x3. CN II-XII grossly intact. Speech is fluent and answers are appropriate. No focal neuro deficits. Psychiatric: Normal mood and affect. No overt signs of depression or anxiety noted. Limitations: no limitations Course Vital Signs 08/06/17 08/06/17 08/06/17 18:27 19:32 19:42 Temperature 97.8 F Pulse Rate 100 95 91 Respiratory 18 12 18 Rate Blood Pressure 180/100 171/88 O2 Sat by Pulse 98 100 96 Oximetry 08/06/17 20:28 Temperature 98 F Pulse Rate 90 Respiratory 18 Rate Blood Pressure 162/81 O2 Sat by Pulse 97 Oximetry Medical Decision Making - Medical Decision Making This is a 32-year-old female with history of frequent headaches who presents to the emergency department with chief complaint of headache. Patient denied any recent injuries or head trauma. She states that her headache feels like her normal headaches but she has been unable to relieve her symptoms at home. Patient was given pain medication and anti-emetics while in the emergency department. At this time, she states that her pain has much improved and is ready to be discharged home. Patient's vital signs are stable and she is in no acute distress. She will be discharged home. She is in agreement and voices understanding. All questions were answered. Disposition Clinical Impression: Headache Disposition: HOME SELF-CARE Condition: Good Instructions: Acute Headache (ED) Additional Instructions: Please follow up with primary care provider within 1-2 days. Return to emergency department if symptoms should worsen or any concerns arise. Referrals: Chen Bennett MD [Primary Care Provider] - 1-2 days Time of Disposition: 20:31
[2017-08-06] MEDS ORDERED: MORPHINE SULFATE/PF 10MG/10ML VL IVP STA (19:44)
[2017-08-06 19:45] VITALS: RESP 18
[2017-08-06 20:29] VITALS: BP 162/81; PULSE 90; TEMP 98
== END 2017-08-06 20:56 | disposition home or self-care (01) ==
LOC: EC 18:15
DX: R51 Headache (principal); R11.0 Nausea; I10 Essential (primary) hypertension; F17.200 Nicotine dependence, unspecified, uncomplicated; Z79.899 Other long term (current) drug therapy; Z88.2 Allergy status to sulfonamides; Z86.14 Personal history of Methicillin resistant Staphylococcus aureus infection
CPT/HCPCS: 99283; 96374; 96375 ×3; 96361; J1200; J2765; J1885; J2270

== ENCOUNTER 2017-08-29 19:31 | Emergency (ER) | payer MEDICARE, OTHER ==
--- NOTE | 2017-08-29 21:21 | ED ---
Lower Extremity Injury HPI - General Chief Complaint: Extremity Injury, Lower Stated Complaint: Hip and knee pain Time Seen by Provider: 08/29/17 19:50 Source: patient Mode of arrival: wheelchair Limitations: no limitations - History of Present Illness Initial Comments: 32-year-old female patient presents to emergency department today for complaints of left knee and hip pain. Patient states that the pain is on the outside of her left thigh. Patient states that she was diagnosed with a left hip fracture and had been evaluated by orthopedics, they do believe that this is an old fracture. Patient states that she has been having some intermittent pain to the area however things had started to improve. Patient states that she woke this morning with pain to her left posterior hip radiating down into her knee. This is she has had increased lower back pain over the last few days. Patient states that she feels her leg feels more swollen than usual. Patient states that she has been taking ibuprofen for pain as that seemed to be helping. She took a [place] from her mother last evening. She denies any numbness or tingling to the leg. She denies any new injuries or falls. She denies any loss of bowel or bladder control. Denies any saddle anesthesia. Patient denies any recent rash, fever, chills, shortness breath, chest pain, palpitations, abdominal pain, nausea, vomiting, diarrhea, constipation, dizziness, weakness, hematuria, dysuria, urinary urgency, urinary frequency, headache, visual changes, or any other complaints. - Related Data Home Medications Medication Instructions Recorded Confirmed Lisinopril [Prinivil] 20 mg PO DAILY 02/05/17 08/29/17 Omeprazole [PriLOSEC] 20 mg PO DAILY 02/05/17 08/29/17 Ibuprofen [Motrin Ib] 200 - 400 mg PO Q6H PRN 08/06/17 08/29/17 Previous Rx's Medication Instructions Recorded Acetaminophen-Codeine 300-30mg 1 tab PO Q6H PRN #15 tablet 08/29/17 [Tylenol #3] Cyclobenzaprine [Flexeril] 10 mg PO TID #15 tab 08/29/17 Allergies Allergy/AdvReac Type Severity Reaction Status Date / Time Sulfa (Sulfonamide Allergy Rash/Hives Verified 08/29/17 19:59 Antibiotics) Review of Systems ROS Statement: Those systems with pertinent positive or pertinent negative responses have been documented in the HPI. ROS Other: All systems not noted in ROS Statement are negative. Past Medical History Past Medical History: Asthma, Hypertension Additional Past Medical History / Comment(s): frequent headache, "back pain", ovarian cysts History of Any Multi-Drug Resistant Organisms: MRSA Date of last positivie culture/infection: 2012 MDRO Source:: Right thigh Past Surgical History: Tonsillectomy Additional Past Surgical History / Comment(s): removal of MRSA Past Psychological History: No Psychological Hx Reported Smoking Status: Current some day smoker Past Alcohol Use History: Occasional Past Drug Use History: Marijuana General Exam Limitations: no limitations General appearance: alert, in no apparent distress, other (This is a well- developed, well-nourished adult female patient in no acute distress. Vital signs upon presentation are temperature 99.0F, pulse 103, respirations 20, blood pressure 178/100, pulse ox 99% on room air.) Eye exam: Present: normal appearance, PERRL, EOMI. Absent: scleral icterus, conjunctival injection, periorbital swelling ENT exam: Present: normal exam, normal oropharynx, mucous membranes moist Respiratory exam: Present: normal lung sounds bilaterally. Absent: respiratory distress, wheezes, rales, rhonchi, stridor Cardiovascular Exam: Present: regular rate, normal rhythm, normal heart sounds. Absent: systolic murmur, diastolic murmur, rubs, gallop, clicks Extremities exam: Present: full ROM, normal capillary refill, other (Mild left lower extremity swelling. No joint swelling, erythema, or calf tenderness. Skin is otherwise pink, warm, and dry. Cap refills less than 3 seconds. Pedal and posttibial pulses are 2+ and equal bilaterally.). Absent: normal inspection , tenderness, pedal edema, joint swelling, calf tenderness Back exam: Present: normal inspection Neurological exam: Present: alert, oriented X3, CN II-XII intact Psychiatric exam: Present: normal affect, normal mood Skin exam: Present: warm, dry, intact, normal color. Absent: rash Course Vital Signs 08/29/17 08/29/17 08/29/17 19:32 21:51 23:13 Temperature 99 F 100.4 F H 98.0 F Pulse Rate 103 H 104 H 95 Respiratory 20 18 Rate Blood Pressure 178/100 148/89 156/107 O2 Sat by Pulse 99 96 97 Oximetry - Reevaluation(s) Reevaluation #1: 08/29/17 21:57 Recheck of vital signs reveals elevated temperature 100.4 and an increased heart rate. Given patient's pain, history of left hip fracture we will obtain blood work and CT of the pelvis and left hip. Medical Decision Making - Medical Decision Making 32-year-old female patient presented to the emergency department today for evaluation of left hip and leg pain. Physical examination did reveal minor swelling to the left lower extremity. Did perform ultrasound which was negative for any acute DVT. At time of discharge patient did have elevated temperature and heart rate. We then concerned for infection so we did perform labs which revealed an elevated white blood cell count at 11.3. Other labs are unremarkable. We did perform computed tomography scan of the pelvis and the left hip which was negative for any acute osseous abnormalities or signs of infection. I did discuss findings and results with the patient. Did discuss her symptoms are most likely related to a sciatic back pain. She is instructed to follow-up with her primary care physician for recheck tomorrow. She is instructed to return here immediately for any new, worsening, or concerning symptoms. She verbalizes understanding and agrees with this plan. - Lab Data Result diagrams: 08/29/17 22:09 08/29/17 22:09 Lab Results 08/29/17 08/29/17 08/29/17 Range/Units 22:09 22:09 22:09 WBC 11.3 H (3.8-10.6) k/uL RBC 4.94 (3.80-5.40) m/uL Hgb 13.0 (11.4-16.0) gm/dL Hct 38.3 (34.0-46.0) % MCV 77.4 L (80.0-100.0) fL MCH 26.2 (25.0-35.0) pg MCHC 33.9 (31.0-37.0) g/dL RDW 16.0 H (11.5-15.5) % Plt Count 295 (150-450) k/uL Neutrophils % 67 % Lymphocytes % 25 % Monocytes % 4 % Eosinophils % 2 % Basophils % 0 % Neutrophils # 7.5 (1.3-7.7) k/uL Lymphocytes # 2.8 (1.0-4.8) k/uL Monocytes # 0.5 (0-1.0) k/uL Eosinophils # 0.3 (0-0.7) k/uL Basophils # 0.0 (0-0.2) k/uL Microcytosis Slight Sodium 143 (137-145) mmol/L Potassium 3.7 (3.5-5.1) mmol/L Chloride 105 (98-107) mmol/L Carbon Dioxide 24 (22-30) mmol/L Anion Gap 14 mmol/L BUN 10 (7-17) mg/dL Creatinine 0.80 (0.52-1.04) mg/dL Est GFR (CKD-EPI)AfAm >90 (>60 ml/min/1.73 sqM) Est GFR (CKD-EPI)NonAf >90 (>60 ml/min/1.73 sqM) Glucose 110 H (74-99) mg/dL Plasma Lactic Acid Drew 1.0 (0.7-2.0) mmol/L Calcium 9.5 (8.4-10.2) mg/dL Total Bilirubin 0.3 (0.2-1.3) mg/dL AST 18 (14-36) U/L ALT 40 (9-52) U/L Alkaline Phosphatase 100 (38-126) U/L Total Protein 6.6 (6.3-8.2) g/dL Albumin 3.9 (3.5-5.0) g/dL Urine Color Urine Appearance (Clear) Urine pH (5.0-8.0) Ur Specific [place] (1.001-1.035) Urine Protein (Negative) Urine Glucose (UA) (Negative) Urine Ketones (Negative) Urine Blood (Negative) Urine Nitrite (Negative) Urine Bilirubin (Negative) Urine Urobilinogen (<2.0) mg/dL Ur Leukocyte Esterase (Negative) 08/29/17 Range/Units 23:14 WBC (3.8-10.6) k/uL RBC (3.80-5.40) m/uL Hgb (11.4-16.0) gm/dL Hct (34.0-46.0) % MCV (80.0-100.0) fL MCH (25.0-35.0) pg MCHC (31.0-37.0) g/dL RDW (11.5-15.5) % Plt Count (150-450) k/uL Neutrophils % % Lymphocytes % % Monocytes % % Eosinophils % % Basophils % % Neutrophils # (1.3-7.7) k/uL Lymphocytes # (1.0-4.8) k/uL Monocytes # (0-1.0) k/uL Eosinophils # (0-0.7) k/uL Basophils # (0-0.2) k/uL Microcytosis Sodium (137-145) mmol/L Potassium (3.5-5.1) mmol/L Chloride (98-107) mmol/L Carbon Dioxide (22-30) mmol/L Anion Gap mmol/L BUN (7-17) mg/dL Creatinine (0.52-1.04) mg/dL Est GFR (CKD-EPI)AfAm (>60 ml/min/1.73 sqM) Est GFR (CKD-EPI)NonAf (>60 ml/min/1.73 sqM) Glucose (74-99) mg/dL Plasma Lactic Acid Drew (0.7-2.0) mmol/L Calcium (8.4-10.2) mg/dL Total Bilirubin (0.2-1.3) mg/dL AST (14-36) U/L ALT (9-52) U/L Alkaline Phosphatase (38-126) U/L Total Protein (6.3-8.2) g/dL Albumin (3.5-5.0) g/dL Urine Color Light Yellow Urine Appearance Clear (Clear) Urine pH 7.5 (5.0-8.0) Ur Specific [place] 1.048 H (1.001-1.035) Urine Protein Negative (Negative) Urine Glucose (UA) Negative (Negative) Urine Ketones Negative (Negative) Urine Blood Negative (Negative) Urine Nitrite Negative (Negative) Urine Bilirubin Negative (Negative) Urine Urobilinogen <2.0 (<2.0) mg/dL Ur Leukocyte Esterase Negative (Negative) - Radiology Data Radiology results: report reviewed, image reviewed CT of the pelvis with contrast was performed. The pelvic ring is intact. There is hypertrophic spurring of the acetabula. I see no bony destructive process. There is no free fluid in the pelvis. Sacrum and coccyx segments abnormal alignment. Sacroiliac joints appear normal. There is no evidence of a pelvic mass. Appendix appears normal. There is some narrowing of the hip joint spaces. Impression by Dr. Cheung shows osteoarthritis and hip joints. No fracture seen. Ultrasound venous Doppler duplex of the left lower extremity was obtained. Report was reviewed in its entirety. Impression by Dr. Cheung shows normal exam at no evidence for deep venous thrombosis in the left leg. Disposition Clinical Impression: Sciatica, Leg pain Disposition: HOME SELF-CARE Condition: Good Instructions: Sciatica (ED), Lower Back Exercises (ED) Additional Instructions: Take medications as directed. Follow up with her primary care physician for recheck in 1-2 days. Return here immediately for any new, worsening, or concerning symptoms. Prescriptions: Acetaminophen-Codeine 300-30mg [Tylenol #3] 1 tab PO Q6H PRN #15 tablet PRN Reason: Pain Cyclobenzaprine [Flexeril] 10 mg PO TID #15 tab Referrals: Chen Bennett MD [Primary Care Provider] - 1-2 days Time of Disposition: 23:35
--- NOTE | 2017-08-29 21:22 | US ---
EXAMINATION TYPE: US venous doppler duplex LE LT DATE OF EXAM: 08/29/2017 8:59 PM COMPARISON: NONE CLINICAL HISTORY: Pain. Left leg pain hip fracture. SIDE PERFORMED: TECHNIQUE: The lower extremity deep venous system is examined utilizing real time linear array sonog alyssia with graded compression, doppler sonography and color-flow sonography. VESSELS IMAGED: External Iliac Vein (EIV) Common Femoral Vein Deep Femoral Vein Greater Saphenous Vein * Femoral Vein Popliteal Vein Small Saphenous Vein * Proximal Calf Veins (* superficial vessels) Left Leg: Negative for DVT No evidence of DVT left leg. IMPRESSION: Normal exam. No evidence of deep venous thrombosis in the left leg.
[2017-08-29] MEDS ORDERED: ACET/COD 300 MG/30 MG STARTER PACK 6 TAB BTL PO STA (21:45)
[2017-08-29 21:51] VITALS: RESP 18
[2017-08-29] MEDS ORDERED: RX INFO: IV CONTRAST WAS GIVEN 1 EACH MISC MISCELLANE PRN (21:55)
[2017-08-29 22:17] LABS: Basophils % (A) 0 %; Eosinophils # (A) 0.3 k/uL (0-0.7); Eosinophils % (A) 2 %; HCT 38.3 % (34.0-46.0); Lymphocytes # (A) 2.8 k/uL (1.0-4.8); Lymphocytes % (A) 25 %; MCH 26.2 pg (25.0-35.0); MCHC 33.9 g/dL (31.0-37.0); MCV 77.4 fL (80.0-100.0); Mean Platelet Volume 6.5; Microcytosis Slight; Monocytes # (A) 0.5 k/uL (0-1.0); Monocytes % (A) 4 %; Neutrophils # (A) 7.5 k/uL (1.3-7.7); Neutrophils % (A) 67 %; Platelet Count 295 k/uL (150-450); RBC 4.94 m/uL (3.80-5.40); WBC 11.3 k/uL (3.8-10.6)
[2017-08-29 22:32] LABS: ALT 40 U/L (9-52); AST 18 U/L (14-36); Albumin 3.9 g/dL (3.5-5.0); Alkaline Phosphatase 100 U/L (38-126); Anion Gap 14 mmol/L; Blood Urea Nitrogen 10 mg/dL (7-17); Calcium 9.5 mg/dL (8.4-10.2); Carbon Dioxide 24 mmol/L (22-30); Chloride 105 mmol/L (98-107); Glucose 110 mg/dL (74-99); Potassium 3.7 mmol/L (3.5-5.1); Sodium 143 mmol/L (137-145); Total Bilirubin 0.3 mg/dL (0.2-1.3); Total Protein 6.6 g/dL (6.3-8.2)
--- NOTE | 2017-08-29 22:59 | CT ---
EXAMINATION TYPE: CT pelvis w con DATE OF EXAM: 08/29/2017 COMPARISON: NONE HISTORY: Left hip pain, fever. CT DLP: 1259.2 mGycm Automated exposure control for dose reduction was used. CONTRAST: Performed with IV Contrast, patient injected with 100 mL of Isovue 300. FINDINGS: The pelvic ring is intact. There is hypertrophic spurring of the acetabula. I see no bony destructive process. There is no free fluid in the pelvis. Sacrum and coccyx segments have normal alignment. Sac roiliac joints appear normal. There is no evidence of a pelvic mass. Appendix appears normal. There i s some narrowing of the hip joint spaces. IMPRESSION: OSTEOARTHRITIS IN THE HIP JOINTS. NO FRACTURE SEEN.
[2017-08-29 23:13] VITALS: BP 156/107; PULSE 95; TEMP 98
[2017-08-29 23:26] LABS: Appearance,Urine Clear (Clear); Bilirubin,Urine Negative (Negative); Blood,Urine Negative (Negative); Color,Urine Light Yellow; Glucose,Urine (UA) Negative (Negative); Ketones,Urine Negative (Negative); Leukocyte Esterase,Urine Negative (Negative); Nitrite,Urine Negative (Negative); PH, Urine 7.5 (5.0-8.0); Protein,Urine Negative (Negative); Urobilinogen,Urine <2.0 mg/dL (<2.0)
[2017-08-29 23:29] LABS: Specific Gravity,Urine 1.048 (1.001-1.035)
== END 2017-08-29 23:43 | disposition home or self-care (01) ==
LOC: EC 19:31
DX: M54.42 Lumbago with sciatica, left side (principal); M79.605 Pain in left leg; D72.829 Elevated white blood cell count, unspecified; I10 Essential (primary) hypertension; F17.200 Nicotine dependence, unspecified, uncomplicated; Z86.14 Personal history of Methicillin resistant Staphylococcus aureus infection; Z88.2 Allergy status to sulfonamides; Z79.899 Other long term (current) drug therapy
CPT/HCPCS: 99284 ×2; 36415; 80053; 83605; 85025; 81003; 87040; 93971; 72193; Q9967

== ENCOUNTER 2017-09-28 14:37 | Emergency (ER) | payer MEDICARE, OTHER ==
[2017-09-28 14:45] VITALS: RESP 18
[2017-09-28 15:22] LABS: Anisocytosis Slight; Basophils # (A) 0.1 k/uL (0-0.2); Basophils % (A) 0 %; Eosinophils # (A) 0.4 k/uL (0-0.7); Eosinophils % (A) 3 %; HCT 41.3 % (34.0-46.0); Lymphocytes # (A) 2.8 k/uL (1.0-4.8); Lymphocytes % (A) 22 %; MCHC 33.9 g/dL (31.0-37.0); MCV 79.5 fL (80.0-100.0); Microcytosis Slight; Monocytes # (A) 0.6 k/uL (0-1.0); Monocytes % (A) 5 %; Neutrophils # (A) 8.5 k/uL (1.3-7.7); Neutrophils % (A) 68 %; Platelet Count 364 k/uL (150-450); RBC 5.19 m/uL (3.80-5.40); RDW 16.5 % (11.5-15.5); WBC 12.5 k/uL (3.8-10.6)
[2017-09-28] MEDS ORDERED: SODIUM CHLORIDE 0.9% 1,000 ML IV ONE (15:22)
[2017-09-28] MEDS ORDERED: MAG HYDROX/AL HYDROX/SIMETH 30 ML, HYOSCYAMINE ELIXIR 10 ML, CIMETIDINE HCL 300 MG, LID... PO STA ×4 (15:22)
--- NOTE | 2017-09-28 15:28 | ED ---
Abdominal Pain HPI - General Chief Complaint: Abdominal Pain Stated Complaint: abd pain Time Seen by Provider: 09/28/17 14:54 Source: patient Mode of arrival: ambulatory Limitations: no limitations - History of Present Illness Initial Comments: This patient is a 32-year-old woman who presents to be evaluated for epigastric abdominal pain that came on early this morning. The patient states that probably around a little after 4 AM she noticed she was having some epigastric burning. She states that when it did not go away by 5 AM, she induced an episode of vomiting. She states that she had another one shortly after that and thought she may have seen a little bit of red blood. She has not had any further vomiting since 5 AM. The epigastric burning pain has continued intermittently. She states that it is moderate intensity, and she has not noted any worsening or relieving factors. The patient states that she did have some alcohol to drink last night prior to the symptoms coming on. Patient denies any change in bowel movements. No chest pain or dyspnea. No diaphoresis. MD Complaint: abdominal pain -: hour(s) Location: epigastric Radiation: none Migration to: no migration Severity: moderate Quality: burning Consistency: intermittent Improves With: nothing Worsens With: nothing Associated Symptoms: nausea, vomiting - Related Data Home Medications Medication Instructions Recorded Confirmed Lisinopril [Prinivil] 20 mg PO DAILY 02/05/17 09/28/17 Omeprazole [PriLOSEC] 20 mg PO DAILY 02/05/17 09/28/17 Ibuprofen [Motrin Ib] 200 - 400 mg PO Q6H PRN 08/06/17 09/28/17 Previous Rx's Medication Instructions Recorded Famotidine [Pepcid] 20 mg PO BID #14 tablet 09/28/17 Allergies Allergy/AdvReac Type Severity Reaction Status Date / Time Sulfa (Sulfonamide Allergy Rash/Hives Verified 08/29/17 19:59 Antibiotics) Review of Systems ROS Statement: Those systems with pertinent positive or pertinent negative responses have been documented in the HPI. ROS Other: All systems not noted in ROS Statement are negative. Constitutional: Denies: fever, chills, weakness Respiratory: Denies: cough, dyspnea Cardiovascular: Denies: chest pain, palpitations, edema, syncope Gastrointestinal: Reports: as per HPI, abdominal pain, nausea, vomiting, hematemesis. Denies: diarrhea, constipation, melena, hematochezia Genitourinary: Denies: dysuria, hematuria Musculoskeletal: Denies: back pain Skin: Denies: rash Neurological: Denies: headache, weakness, numbness Hematological/Lymphatic: Denies: easy bleeding Past Medical History Past Medical History: Asthma, Hypertension Additional Past Medical History / Comment(s): frequent headache, "back pain", ovarian cysts History of Any Multi-Drug Resistant Organisms: MRSA Date of last positivie culture/infection: 2012 MDRO Source:: Right thigh Past Surgical History: Tonsillectomy Additional Past Surgical History / Comment(s): removal of MRSA Past Psychological History: No Psychological Hx Reported Smoking Status: Current every day smoker Past Alcohol Use History: Occasional Past Drug Use History: None Reported, Marijuana General Exam Limitations: no limitations General appearance: alert, in no apparent distress Head exam: Present: atraumatic, normocephalic Eye exam: Present: normal appearance. Absent: scleral icterus, conjunctival injection ENT exam: Present: normal oropharynx Respiratory exam: Present: normal lung sounds bilaterally. Absent: respiratory distress, wheezes, rales, rhonchi, stridor Cardiovascular Exam: Present: regular rate, normal rhythm, normal heart sounds. Absent: systolic murmur, diastolic murmur, rubs, gallop GI/Abdominal exam: Present: soft, tenderness (Mild epigastric tenderness without rebound or guarding), normal bowel sounds. Absent: distended, guarding , rebound, rigid, mass, pulsatile mass, hernia Extremities exam: Present: normal inspection, normal capillary refill. Absent: pedal edema, calf tenderness Back exam: Present: normal inspection. Absent: CVA tenderness (R), CVA tenderness (L) Neurological exam: Present: alert Skin exam: Present: warm, dry, intact, normal color. Absent: rash Course Vital Signs 09/28/17 14:42 Temperature 98.0 F Pulse Rate 114 H Respiratory 18 Rate Blood Pressure 128/70 O2 Sat by Pulse 99 Oximetry Medical Decision Making - Lab Data Result diagrams: 09/28/17 15:13 09/28/17 15:13 Lab Results 09/28/17 09/28/17 09/28/17 Range/Units 15:13 15:13 15:39 WBC 12.5 H (3.8-10.6) k/uL RBC 5.19 (3.80-5.40) m/uL Hgb 14.0 (11.4-16.0) gm/dL Hct 41.3 (34.0-46.0) % MCV 79.5 L (80.0-100.0) fL MCH 27.0 (25.0-35.0) pg MCHC 33.9 (31.0-37.0) g/dL RDW 16.5 H (11.5-15.5) % Plt Count 364 (150-450) k/uL Neutrophils % 68 % Lymphocytes % 22 % Monocytes % 5 % Eosinophils % 3 % Basophils % 0 % Neutrophils # 8.5 H (1.3-7.7) k/uL Lymphocytes # 2.8 (1.0-4.8) k/uL Monocytes # 0.6 (0-1.0) k/uL Eosinophils # 0.4 (0-0.7) k/uL Basophils # 0.1 (0-0.2) k/uL Anisocytosis Slight Microcytosis Slight Sodium 142 (137-145) mmol/L Potassium 4.2 (3.5-5.1) mmol/L Chloride 105 (98-107) mmol/L Carbon Dioxide 22 (22-30) mmol/L Anion Gap 15 mmol/L BUN 8 (7-17) mg/dL Creatinine 0.59 (0.52-1.04) mg/dL Est GFR (CKD-EPI)AfAm >90 (>60 ml/min/1.73 sqM) Est GFR (CKD-EPI)NonAf >90 (>60 ml/min/1.73 sqM) Glucose 93 (74-99) mg/dL Calcium 9.9 (8.4-10.2) mg/dL Total Bilirubin 0.3 (0.2-1.3) mg/dL AST 23 (14-36) U/L ALT 39 (9-52) U/L Alkaline Phosphatase 121 (38-126) U/L Total Protein 6.7 (6.3-8.2) g/dL Albumin 4.2 (3.5-5.0) g/dL Amylase 35 (30-110) U/L Lipase 64 (23-300) U/L Urine Color Urine Appearance (Clear) Urine pH (5.0-8.0) Ur Specific [place] (1.001-1.035) Urine Protein (Negative) Urine Glucose (UA) (Negative) Urine Ketones (Negative) Urine Blood (Negative) Urine Nitrite (Negative) Urine Bilirubin (Negative) Urine Urobilinogen (<2.0) mg/dL Ur Leukocyte Esterase (Negative) Urine WBC (0-5) /hpf Ur Squamous Epith Cells (0-4) /hpf Urine Bacteria (None) /hpf Urine Mucus (None) /hpf Urine HCG, Qual Not Detected (Not Detectd) 09/28/17 Range/Units 15:39 WBC (3.8-10.6) k/uL RBC (3.80-5.40) m/uL Hgb (11.4-16.0) gm/dL Hct (34.0-46.0) % MCV (80.0-100.0) fL MCH (25.0-35.0) pg MCHC (31.0-37.0) g/dL RDW (11.5-15.5) % Plt Count (150-450) k/uL Neutrophils % % Lymphocytes % % Monocytes % % Eosinophils % % Basophils % % Neutrophils # (1.3-7.7) k/uL Lymphocytes # (1.0-4.8) k/uL Monocytes # (0-1.0) k/uL Eosinophils # (0-0.7) k/uL Basophils # (0-0.2) k/uL Anisocytosis Microcytosis Sodium (137-145) mmol/L Potassium (3.5-5.1) mmol/L Chloride (98-107) mmol/L Carbon Dioxide (22-30) mmol/L Anion Gap mmol/L BUN (7-17) mg/dL Creatinine (0.52-1.04) mg/dL Est GFR (CKD-EPI)AfAm (>60 ml/min/1.73 sqM) Est GFR (CKD-EPI)NonAf (>60 ml/min/1.73 sqM) Glucose (74-99) mg/dL Calcium (8.4-10.2) mg/dL Total Bilirubin (0.2-1.3) mg/dL AST (14-36) U/L ALT (9-52) U/L Alkaline Phosphatase (38-126) U/L Total Protein (6.3-8.2) g/dL Albumin (3.5-5.0) g/dL Amylase (30-110) U/L Lipase (23-300) U/L Urine Color Yellow Urine Appearance Cloudy H (Clear) Urine pH 6.0 (5.0-8.0) Ur Specific [place] 1.018 (1.001-1.035) Urine Protein 1+ H (Negative) Urine Glucose (UA) Negative (Negative) Urine Ketones Negative (Negative) Urine Blood Negative (Negative) Urine Nitrite Negative (Negative) Urine Bilirubin Negative (Negative) Urine Urobilinogen <2.0 (<2.0) mg/dL Ur Leukocyte Esterase Negative (Negative) Urine WBC 5 (0-5) /hpf Ur Squamous Epith Cells 6 H (0-4) /hpf Urine Bacteria Rare H (None) /hpf Urine Mucus Occasional H (None) /hpf Urine HCG, Qual (Not Detectd) Disposition Clinical Impression: Abdominal pain Disposition: HOME SELF-CARE Condition: Good Instructions: Abdominal Pain (ED) Prescriptions: Famotidine [Pepcid] 20 mg PO BID #14 tablet Is patient prescribed a controlled substance at d/c from ED?: No Referrals: Chen Bennett MD [Primary Care Provider] - 1-2 days
[2017-09-28 15:34] LABS: ALT 39 U/L (9-52); AST 23 U/L (14-36); Albumin 4.2 g/dL (3.5-5.0); Alkaline Phosphatase 121 U/L (38-126); Amylase 35 U/L (30-110); Anion Gap 15 mmol/L; Blood Urea Nitrogen 8 mg/dL (7-17); Calcium 9.9 mg/dL (8.4-10.2); Carbon Dioxide 22 mmol/L (22-30); Chloride 105 mmol/L (98-107); Glucose 93 mg/dL (74-99); Lipase 64 U/L (23-300); Potassium 4.2 mmol/L (3.5-5.1); Sodium 142 mmol/L (137-145); Total Bilirubin 0.3 mg/dL (0.2-1.3); Total Protein 6.7 g/dL (6.3-8.2)
[2017-09-28 15:53] LABS: Appearance,Urine Cloudy (Clear); Bacteria,Urine Rare /hpf; Bilirubin,Urine Negative (Negative); Blood,Urine Negative (Negative); Color,Urine Yellow; Glucose,Urine (UA) Negative (Negative); Ketones,Urine Negative (Negative); Leukocyte Esterase,Urine Negative (Negative); Mucus,Urine Occasional /hpf; Nitrite,Urine Negative (Negative); Protein,Urine 1+ (Negative); Specific Gravity,Urine 1.018 (1.001-1.035); Squamous Epithelial Cell,Urine 6 /hpf (0-4); Urobilinogen,Urine <2.0 mg/dL (<2.0); WBC,Urine 5 /hpf (0-5)
[2017-09-28 16:44] VITALS: BP 122/64; PULSE 98; TEMP 98
== END 2017-09-28 16:44 | disposition home or self-care (01) ==
LOC: EC 14:37
DX: R10.13 Epigastric pain (principal); R11.2 Nausea with vomiting, unspecified; I10 Essential (primary) hypertension; F17.200 Nicotine dependence, unspecified, uncomplicated; Z86.14 Personal history of Methicillin resistant Staphylococcus aureus infection; Z79.899 Other long term (current) drug therapy; Z88.2 Allergy status to sulfonamides
CPT/HCPCS: 36415; 80053; 81001; 81025; 82150; 83690; 85025; 96360; 99284

== ENCOUNTER → 2017-10-19 | Outpatient (CLI) | payer MEDICARE, OTHER ==
--- NOTE | 2017-10-19 12:17 | CT ---
EXAMINATION TYPE: CT brain wo con DATE OF EXAM: 10/19/2017 COMPARISON: NONE HISTORY: Headaches CT DLP: 1017.[address] of the brain was performed. The ventricles, basal cisterns and sulci overlying the cerebral convexities demonstrate a normal appe arance. There is no evidence for intracranial hemorrhage or sulcal effacement. Vague decreased attenuation a bout the periventricular white matter reflect underlying demyelination. Correlate clinically and cons ider MRI as indicated. No mass effects are seen. Osseous calvarium is intact. If symptoms persist consider MRI as clinically warranted. IMPRESSION: 1. No acute intracranial process is seen at this time.Vague decreased attenuation about the perivent ricular white matter reflect underlying demyelination. Correlate clinically and consider MRI as indic ated.
== END | disposition home or self-care (01) ==
LOC: RADCTMAIN 10:48
PROVIDERS: ATTEND Internal Medicine
DX: G37.9 Demyelinating disease of central nervous system, unspecified (principal); R90.89 Other abnormal findings on diagnostic imaging of central nervous system; Z88.2 Allergy status to sulfonamides
CPT/HCPCS: 70450

== ENCOUNTER 2017-12-08 18:40 | Emergency (ER) | payer MEDICARE, OTHER ==
--- NOTE | 2017-12-08 19:23 | ED ---
General Adult HPI - General Source: patient, RN notes reviewed Mode of arrival: ambulatory Limitations: no limitations <Kevin Moore P - Last Filed: 12/08/17 20:05> <Tanisha Luong P - Last Filed: 12/08/17 20:11> - General Chief complaint: Extremity Problem,Nontraumatic Stated complaint: lt hip pain Time Seen by Provider: 12/08/17 18:54 - History of Present Illness Initial comments: 32-year-old female presents to the emergency department for a chief complaint of left hip pain 6 months. Patient denies any recent injuries. Patient states that about 6 months ago she was seen in this emergency department and diagnosed with a hip fracture and sent to [place]. Patient states she had no injury prior to this diagnosis but had hip pain. Patient states the hip did not need surgery at that point and she was seeing a orthopedic physician for cortisone injections. The cortisone injections has stopped helping the pain. Patient has tried to see multiple orthopedic surgeons within the area and they have unfortunately refused to see her. Patient states the pain today is consistent with the pain throughout the past 6 months. Patient denies any increase in pain. Patient denies any recent injuries. Patient states the pain is a shooting pain down to her left knee and into her left buttock. Patient states she is able to walk on it. Patient denies any chance of . Patient denies any bladder or bowel changes and is urinating regularly. Patient denies any fevers or chills. No IV drug abuse. No saddle anesthesia. Patient has no other complaints at this time including shortness of breath, chest pain, abdominal pain, nausea or vomiting, headache, or visual changes. ( Kevin Moore) - Related Data Home Medications Medication Instructions Recorded Confirmed Lisinopril [Prinivil] 20 mg PO DAILY 02/05/17 09/28/17 Omeprazole [PriLOSEC] 20 mg PO DAILY 02/05/17 09/28/17 Ibuprofen [Motrin Ib] 200 - 400 mg PO Q6H PRN 08/06/17 09/28/17 Previous Rx's Medication Instructions Recorded Famotidine [Pepcid] 20 mg PO BID #14 tablet 09/28/17 Ibuprofen [Motrin] 600 mg PO Q6HR PRN #20 tab 12/08/17 predniSONE 50 mg PO DAILY #5 tablet 12/08/17 Allergies Allergy/AdvReac Type Severity Reaction Status Date / Time Sulfa (Sulfonamide Allergy Rash/Hives Verified 12/08/17 18:49 Antibiotics) Review of Systems ROS Other: All systems not noted in ROS Statement are negative. <Kevin Moore P - Last Filed: 12/08/17 20:05> ROS Other: All systems not noted in ROS Statement are negative. <Tanisha Luong P - Last Filed: 12/08/17 20:11> ROS Statement: Those systems with pertinent positive or pertinent negative responses have been documented in the HPI. Past Medical History Past Medical History: Asthma, Hypertension Additional Past Medical History / Comment(s): frequent headache, "back pain", ovarian cysts History of Any Multi-Drug Resistant Organisms: MRSA Date of last positivie culture/infection: 2012 MDRO Source:: Right thigh Past Surgical History: Tonsillectomy Additional Past Surgical History / Comment(s): removal of MRSA Past Psychological History: No Psychological Hx Reported Smoking Status: Current every day smoker Past Alcohol Use History: Occasional Past Drug Use History: None Reported, Marijuana <Kevin Moore P - Last Filed: 12/08/17 20:05> General Exam Limitations: no limitations General appearance: alert, in no apparent distress Head exam: Present: atraumatic Eye exam: Present: normal appearance. Absent: scleral icterus, conjunctival injection ENT exam: Present: normal exam, mucous membranes moist Neck exam: Present: normal inspection, full ROM. Absent: tenderness, meningismus, lymphadenopathy Respiratory exam: Present: normal lung sounds bilaterally. Absent: respiratory distress, wheezes, rales, rhonchi, stridor Cardiovascular Exam: Present: regular rate, normal rhythm, normal heart sounds. Absent: systolic murmur, diastolic murmur, rubs, gallop, clicks Extremities exam: Present: tenderness (Very mild tenderness to the left lateral hip and left buttock), normal capillary refill (Capillary refill less than 2 seconds and), other (Sensation intact in the left lower extremity.). Absent: full ROM (full flexion and extension of the left hip. Patient does have limited abduction and of the hip to about 20), joint swelling, calf tenderness (No calf tenderness, negative Homans sign, no swelling or warmth.) <Kevin Moore P - Last Filed: 12/08/17 20:05> Vital Signs 12/08/17 18:49 Temperature 98.5 F Pulse Rate 104 H Respiratory 20 Rate Blood Pressure 165/99 O2 Sat by Pulse 98 Oximetry Medical Decision Making <Kevin Moore - Last Filed: 12/08/17 20:05> <Tanisha Luong - Last Filed: 12/08/17 20:11> - Medical Decision Making 32-year-old female presents to the emergency determine for chief complaint of left hip pain 6 months. Patient states pain is consistent with the last 6 months and is not especially worse today. Patient was diagnosed with a hip fracture 6 months ago. Recently had a computed tomography scan of the pelvis 3 months ago and no fracture was seen. Osteoarthritis was noted. On exam patient has full flexion and extension of the hip with some limited abduction. Mild tenderness to the lateral aspect of the hip. The pain is radiating from the hip down to the left knee. X-ray of the left hip and pelvis shows hypertrophic osteoarthritic changes. No fracture seen. No significant change from previous exams. Pain is likely sciatic in nature. Patient will be given prednisone for 5 days. She will follow-up with orthopedics. Patient can take Motrin and Tylenol for pain. Aware to return to the emergency Department if she has any worsening symptoms including bladder or bowel changes or saddle anesthesia. (Kevin Moore) Patient was seen and evaluated independently by the PA, we discussed the patient 's care and I agree with the evaluation and treatment as documented area I was not asked to evaluate the patient independently. (Tanisha Luong) Disposition Is patient prescribed a controlled substance at d/c from ED?: No Time of Disposition: 20:06 <Kevin Moore P - Last Filed: 12/08/17 20:05> <Tanisha Luong - Last Filed: 12/08/17 20:11> Clinical Impression: Sciatic leg pain, Osteoarthritis Disposition: HOME SELF-CARE Condition: Good Instructions: Osteoarthritis (ED), Sciatica (ED) Additional Instructions: Please take Motrin and steroid as directed. Please follow-up with orthopedics in one to 2 days. Return to the emergency department if you have any worsening symptoms including bladder or bowel changes. Prescriptions: Ibuprofen [Motrin] 600 mg PO Q6HR PRN #20 tab PRN Reason: Pain predniSONE 50 mg PO DAILY #5 tablet Referrals: Chen Bennett MD [Primary Care Provider] - 1-2 days
--- NOTE | 2017-12-08 19:53 | XR ---
EXAMINATION TYPE: XR Hip LT and AP Pelvis DATE OF EXAM: 12/08/2017 COMPARISON: 02/04/2017 HISTORY: Hip pain TECHNIQUE: A single AP view of the pelvis is obtained. Two views of the left hip are obtained. FINDINGS: The pelvic ring is intact. The proximal femurs are intact. There is hypertrophic acetabula r spurring. There is also some spurring on the femoral heads. Sacroiliac joints are intact. IMPRESSION: There are hypertrophic osteoarthritic changes in both hip joints are severe for the patient's young a ge. No fracture seen. No significant change.
[2017-12-08 20:29] VITALS: BP 178/93; PULSE 89; RESP 18; TEMP 98.9
== END 2017-12-08 20:29 | disposition home or self-care (01) ==
LOC: EC 18:40
DX: M16.12 Unilateral primary osteoarthritis, left hip (principal); M54.30 Sciatica, unspecified side; I10 Essential (primary) hypertension; F17.200 Nicotine dependence, unspecified, uncomplicated; Z86.14 Personal history of Methicillin resistant Staphylococcus aureus infection; Z79.899 Other long term (current) drug therapy; Z88.2 Allergy status to sulfonamides
CPT/HCPCS: 73502; 99283

== ENCOUNTER → 2018-02-19 | Outpatient (CLI) | payer MEDICARE, OTHER ==
[2018-02-19 10:48] VITALS: BP 157/79; PULSE 83; TEMP 96.7; BMI 44.1
--- NOTE | 2018-02-19 11:44 | P.HPOB ---
History of Present Illness H&P Date: 02/19/18 Chief Complaint: The patient is here for her routine gynecologic exam. This is a 32-year-old G0 with an LMP of 12/11/2017. The patient states she is not been sexually active for more than 4 months. When she was sexually active, she states she used condoms for control. Her menses have been every 1 to 2 months and most commonly monthly. She is without gynecologic complaints. Review of Systems The patient has lost 2 pounds over the last year. She denies respiratory, cardiac, or G.I. problems. Past Medical History Past Medical History: Asthma, GERD/Reflux, Hypertension Additional Past Medical History / Comment(s): frequent headache, "back pain", ovarian cysts. She is being tested for a "swollen liver". History of Any Multi-Drug Resistant Organisms: MRSA Date of last positivie culture/infection: 2012 MDRO Source:: Right thigh Past Surgical History: Tonsillectomy Additional Past Surgical History / Comment(s): removal of MRSA Past Psychological History: No Psychological Hx Reported Smoking Status: Current every day smoker (Half a pack per day) Past Alcohol Use History: Rare (3 per month) Past Drug Use History: Marijuana (She states she is no longer using marijuana and stopped in 2017.) Additional History: She is single and is not seeing anybody at this time. She has had four sexual partners in her lifetime. 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 - Past Family History Mother Family Medical History: Cancer (Stage IV breast cancer. Tested negative for "breast cancer gene" per the patient .) Additional Family Medical History / Comment(s): To maternal aunts had breast cancer. A maternal aunt had throat cancer. Maternal uncle had prostate cancer. Medications and Allergies Home Medications Medication Instructions Recorded Confirmed Type Lisinopril [Prinivil] 20 mg PO DAILY 02/05/17 02/19/18 History Omeprazole [PriLOSEC] 20 mg PO DAILY 02/05/17 02/19/18 History Ibuprofen [Motrin] 600 mg PO Q6HR PRN #20 tab 12/08/17 02/19/18 Rx Allergies Allergy/AdvReac Type Severity Reaction Status Date / Time Sulfa (Sulfonamide Allergy Rash/Hives Verified 12/08/17 18:49 Antibiotics) Exam Vital Signs Temp Pulse BP 02/19/18 10:45 96.7 F L 83 157/79 Intake and Output 02/18/18 02/19/18 02/19/18 22:59 06:59 14:59 Other: Weight 127.913 kg Height 5'7", BMI 44.2. This is a well-developed well-nourished obese white female who is alert and oriented times 3 in no acute distress. HEENT: Within normal limits. NECK: Supple without mass or thyromegaly. CHEST AND LUNGS: Clear to auscultation. HEART: Regular rate and rhythm. BREASTS: Are without mass or discharge. AXILLARY EXAM: Negative for adenopathy. BACK: Negative for CVA tenderness. ABDOMEN: Soft, obese, nontender, without palpable masses. PELVIC EXAM: Normal external genitalia. Cervix and vagina appear normal. There is no unusual discharge. There is no cervical motion tenderness. There is no evidence of prolapse. The uterus is midposition, nongravid size and nontender. There are no palpable adnexal masses or tenderness. Bimanual examination is somewhat limited secondary to her size. RECTAL EXAM: negative for mass or tenderness and is negative for occult blood. EXTREMITIES: Nontender. IMPRESSION: 1. 32 year old female with normal gynecologic exam. 2. Oligomenorrhea with approximately a 9 week interval sensor LMP. Menses have generally been every 1 to 2 months. The patient denies any chance of since she has not been sexually active since her LMP. 3. Elevated blood pressure with history of chronic hypertension. The patient states she forgot to take her blood pressure medication today. 4. Strong family history of breast cancer in her mother and to maternal aunts. She states her mother tested negative for the "breast cancer gene" PLAN: 1. Pap smear was deferred saturated negative one last year. 2. Self breast awareness was discussed with the patient. 3. I recommended screening baseline mammogram because of her strong family history of breast cancer and ended because her mother was 40 years old when she developed breast cancer. The order slip was given to the patient for this. She states she is going to check with her insurance company on coverage for the mammogram at a young age. 4. She states she is scheduled to see somebody at the [facility] for possible breast cancer genetic testing later this month. 5. STD prevention was discussed. I stressed the importance of limiting sexual partners and use of condoms if she is sexually active. 6. GC and Chlamydia screening was obtained from the cervix today. 7. We have discussed her infrequent menses. Period I have offered testing to look into the oligomenorrhea including hCG and thyroid testing. She is declining any testing at this time. She will keep the menstrual calendar. I' ve instructed her to call if she goes 3 months without a menstrual period, or if menstrual problems. 8. I've instructed her to take her blood pressure medication that she forgot to take today as soon as possible. 9. She will return in one year and PRN.
== END | disposition home or self-care (01) ==
LOC: WWCWWP 09:50
PROVIDERS: ATTEND Obstetrics & Gynecology
DX: Z53.9 Procedure and treatment not carried out, unspecified reason (principal)

== ENCOUNTER 2018-06-07 11:11 | Emergency (ER) | payer MEDICARE, OTHER ==
--- NOTE | 2018-06-07 11:27 | ED ---
General Adult HPI - General Chief complaint: Extremity Injury, Lower Stated complaint: lt ankle injury Time Seen by Provider: 06/07/18 11:24 Source: patient, RN notes reviewed Mode of arrival: ambulatory Limitations: no limitations - History of Present Illness Initial comments: Patient 31-year-old female presented to the emergency room today with chief complaint of injury to left ankle and foot that occurred yesterday. She went to step down and there was a shoe stepping on this twisted her left foot last night. Patient does admit to pain to this area. Denies any other injury or trauma. Denies any head injury or loss conscious. - Related Data Home Medications Medication Instructions Recorded Confirmed Lisinopril [Prinivil] 20 mg PO DAILY 02/05/17 02/19/18 Omeprazole [PriLOSEC] 20 mg PO DAILY 02/05/17 02/19/18 Previous Rx's Medication Instructions Recorded Ibuprofen [Motrin] 600 mg PO Q6HR PRN #20 tab 12/08/17 Ibuprofen [Motrin] 600 mg PO Q6HR PRN #40 day 06/07/18 Allergies Allergy/AdvReac Type Severity Reaction Status Date / Time Sulfa (Sulfonamide Allergy Rash/Hives Verified 06/07/18 11:16 Antibiotics) Review of Systems ROS Statement: Those systems with pertinent positive or pertinent negative responses have been documented in the HPI. ROS Other: All systems not noted in ROS Statement are negative. Past Medical History Past Medical History: Asthma, GERD/Reflux, Hypertension Additional Past Medical History / Comment(s): frequent headache, "back pain", ovarian cysts. She is being tested for a "swollen liver". History of Any Multi-Drug Resistant Organisms: MRSA Date of last positivie culture/infection: 2012 MDRO Source:: Right thigh Past Surgical History: Tonsillectomy Additional Past Surgical History / Comment(s): removal of MRSA Past Psychological History: Depression Smoking Status: Current every day smoker Past Alcohol Use History: Occasional Past Drug Use History: Marijuana - Past Family History Mother Family Medical History: Cancer (Stage IV breast cancer. Tested negative for "breast cancer gene" per the patient .) Additional Family Medical History / Comment(s): To maternal aunts had breast cancer. A maternal aunt had throat cancer. Maternal uncle had prostate cancer. General Exam - General Exam Comments Initial Comments: General: The patient is awake and alert, in no distress, and does not appear acutely ill. Neck: The neck is supple, there is no tenderness or JVD. Musculoskeletal: Patient does have normal appearance of left foot and ankle no obvious deformity. Patient does have tenderness to the lateral aspect of the left foot and proximal metatarsals. Sensations are intact. Pedal pulses 2+. Patient shows good range of motion. Neurological: A&O x 3. CN II-XII intact, There are no obvious motor or sensory deficits. Coordination appears grossly intact. Speech is normal. Skin: Skin is warm and dry and no rashes or lesions are noted. Psychiatric: Normal mood and affect. Limitations: no limitations Course Vital Signs 06/07/18 06/07/18 11:16 11:57 Temperature 98 F Pulse Rate 100 Respiratory 18 Rate Blood Pressure 160/103 151/80 O2 Sat by Pulse 99 Oximetry Medical Decision Making - Medical Decision Making X-rays reviewed and are negative for any acute fracture dislocation. Results were discussed with patient. Patient advised most likely sprain. She is advised follow-up in 7-10 days if symptoms are not improving for repeat x-rays. Patient advised ice elevate the affected area will be given a prescription for ibuprofen continue for pain. Disposition Clinical Impression: Ankle sprain Disposition: HOME SELF-CARE Condition: Good Instructions: Ankle Sprain (ED) Additional Instructions: Please follow-up in 7-10 days for repeat x-rays if symptoms persist. Please continue to ice elevate the affected area at least 4 times daily for 20 minutes at a time. Please return to emergency room for any other concerns. Prescriptions: Ibuprofen [Motrin] 600 mg PO Q6HR PRN #40 day PRN Reason: Pain Is patient prescribed a controlled substance at d/c from ED?: No Referrals: Chen Bennett MD [Primary Care Provider] - 1-2 days Time of Disposition: 12:38
--- NOTE | 2018-06-07 12:00 | XR ---
EXAMINATION TYPE: XR ankle complete LT , 3 VIEWS DATE OF EXAM ORDERED: 06/07/2018 HISTORY: Pain. COMPARISON: Previous study dated 12/09/2016. FINDINGS: No fracture, dislocation or ankle joint effusion is seen. There is a well-corticated ossif ic density adjacent to the medial malleolus. This was present previously. There are both Achilles and plantar calcaneal spurs. IMPRESSION: NO ACUTE OSSEOUS LESION.
--- NOTE | 2018-06-07 12:01 | XR ---
EXAMINATION TYPE: XR foot complete LT , 3 VIEWS DATE OF EXAM ORDERED: 06/07/2018 HISTORY: Pain. COMPARISON: None. FINDINGS: No fracture or dislocation is seen. There are small plantar and Achilles spurs present. IMPRESSION: NO ACUTE OSSEOUS LESION.
[2018-06-07] MEDS ORDERED: IBUPROFEN 600 MG TAB PO STA (12:33)
[2018-06-07 12:49] VITALS: BP 154/89; PULSE 79; RESP 16; TEMP 97.5
== END 2018-06-07 12:49 | disposition home or self-care (01) ==
LOC: EC 11:11
DX: S93.402A Sprain of unspecified ligament of left ankle, initial encounter (principal); I10 Essential (primary) hypertension; K21.9 Gastro-esophageal reflux disease without esophagitis; F17.200 Nicotine dependence, unspecified, uncomplicated; Z86.14 Personal history of Methicillin resistant Staphylococcus aureus infection; Z79.899 Other long term (current) drug therapy; Z88.2 Allergy status to sulfonamides; X50.1XXA Overexertion from prolonged static or awkward postures, initial encounter; W18.31XA Fall on same level due to stepping on an object, initial encounter; Y92.009 Unspecified place in unspecified non-institutional (private) residence as the place of occurrence of the external cause
CPT/HCPCS: 29515; 99283

== ENCOUNTER 2018-09-25 15:17 | Emergency (ER) | payer MEDICARE, OTHER ==
[2018-09-25 15:22] VITALS: TEMP 98.6
[2018-09-25] MEDS ORDERED: IBUPROFEN 600 MG TAB PO STA (15:49)
--- NOTE | 2018-09-25 15:56 | ED ---
Lower Extremity Injury HPI - General Chief Complaint: Extremity Injury, Lower Stated Complaint: Ankle pain Time Seen by Provider: 09/25/18 15:45 Source: patient Mode of arrival: ambulatory Limitations: no limitations - History of Present Illness Initial Comments: 33-year-old female patient presents to the emergency department today for evaluation of left ankle and foot pain. Patient states that she was on her feet a lot yesterday and started having pain to the left heel and ankle. Patient states it does seem to be mildly swollen. She denies any known injury. Patient states she did have an ankle fracture couple months ago that was reported to be healing well. States that she has been having some tingling to the foot over the last couple of days. Denies any fever or chills. Denies any rash. Denies any new footwear. Patient denies any headache, neck pain, back pain, chest pain, shortness of breath, dizziness, weakness, abdominal pain, nausea, vomiting, or difficulties with bowel movements or urination. - Related Data Home Medications Medication Instructions Recorded Confirmed Lisinopril [Prinivil] 20 mg PO DAILY 02/05/17 02/19/18 Omeprazole [PriLOSEC] 20 mg PO DAILY 02/05/17 02/19/18 Previous Rx's Medication Instructions Recorded Ibuprofen [Motrin] 600 mg PO Q6HR PRN #20 tab 12/08/17 Ibuprofen [Motrin] 600 mg PO Q6HR PRN #40 day 06/07/18 Allergies Allergy/AdvReac Type Severity Reaction Status Date / Time Sulfa (Sulfonamide Allergy Rash/Hives Verified 09/25/18 15:22 Antibiotics) Review of Systems ROS Statement: Those systems with pertinent positive or pertinent negative responses have been documented in the HPI. ROS Other: All systems not noted in ROS Statement are negative. Past Medical History Past Medical History: Asthma, GERD/Reflux, Hypertension Additional Past Medical History / Comment(s): frequent headache, "back pain", ovarian cysts. She is being tested for a "swollen liver". History of Any Multi-Drug Resistant Organisms: MRSA Date of last positivie culture/infection: 2012 MDRO Source:: Right thigh Past Surgical History: Tonsillectomy Additional Past Surgical History / Comment(s): removal of MRSA Past Psychological History: Depression Smoking Status: Current every day smoker Past Alcohol Use History: Occasional Past Drug Use History: Marijuana - Past Family History Mother Family Medical History: Cancer (Stage IV breast cancer. Tested negative for "breast cancer gene" per the patient .) Additional Family Medical History / Comment(s): To maternal aunts had breast cancer. A maternal aunt had throat cancer. Maternal uncle had prostate cancer. General Exam Limitations: no limitations General appearance: alert, in no apparent distress, other (Physical well- developed, well-nourished adult female patient in no acute distress. Vital signs upon presentation are temperature 98.6F, pulse 101, respirations 20, blood pressure 170/95, pulse ox 97% on room air.) Eye exam: Present: normal appearance, PERRL, EOMI. Absent: scleral icterus, conjunctival injection, periorbital swelling ENT exam: Present: normal exam, normal oropharynx, mucous membranes moist Respiratory exam: Present: normal lung sounds bilaterally. Absent: respiratory distress, wheezes, rales, rhonchi, stridor Cardiovascular Exam: Present: regular rate, normal rhythm, normal heart sounds. Absent: systolic murmur, diastolic murmur, rubs, gallop, clicks Extremities exam: Present: full ROM, tenderness (Heel tenderness), normal capillary refill, other (Mild soft tissue swelling surrounding the left ankle. Skin is pink, warm, dry. Cap refills less than 3 seconds. Pedal and posttibial pulses are 2+ and equal bilaterally.). Absent: normal inspection, pedal edema, joint swelling, calf tenderness Neurological exam: Present: alert, oriented X3, CN II-XII intact Psychiatric exam: Present: normal affect, normal mood Skin exam: Present: warm, dry, intact, normal color. Absent: rash Course Vital Signs 09/25/18 09/25/18 15:19 17:05 Temperature 98.6 F Pulse Rate 101 H 97 Respiratory 20 18 Rate Blood Pressure 170/95 160/92 O2 Sat by Pulse 97 98 Oximetry Medical Decision Making - Medical Decision Making 33-year-old female patient presents to the emergency department today for evaluation of left ankle pain after prolonged standing yesterday. Physical examination did reveal some mild soft tissue swelling surrounding the left lateral malleolus. No point tenderness in the ankle however there was some tenderness over the heel. Physical examination is otherwise unremarkable and neurovascular status is intact. X-ray showed no acute abnormalities. Patient is afebrile. She'll be discharged at this time to take Tylenol Motrin as well as rest, ice, elevate the extremity. Return parameters were discussed in detail. She is instructed to follow-up with her primary care physician for recheck in 1-2 days. She verbalizes understanding and agrees with this plan. - Radiology Data Radiology results: report reviewed, image reviewed 3 views of the left ankle are obtained. Report was reviewed in its entirety. Impression by Dr. schaeffer shows no definite acute fracture dislocation. Densities along the medial lateral malleoli are most likely chronic. They are present on the prior exam. Correlate with point tenderness. Disposition Clinical Impression: Left ankle pain Disposition: HOME SELF-CARE Condition: Good Instructions (If sedation given, give patient instructions): Arthralgia (ED) Additional Instructions: Rest, ice, elevate the ankle. Take Tylenol Motrin for pain control. Follow up through primary care physician for recheck in 1-2 days. Return to the emergency department immediately for any new, worsening, or concerning symptoms. Is patient prescribed a controlled substance at d/c from ED?: No Referrals: Chen Bennett MD [Primary Care Provider] - 1-2 days Time of Disposition: 16:49
--- NOTE | 2018-09-25 16:07 | XR ---
EXAMINATION TYPE: XR ankle complete LT DATE OF EXAM: 09/25/2018 COMPARISON: 06/07/2018 HISTORY: Pain FINDINGS: Three views of the ankle demonstrate the ankle mortise to be intact and symmetric. There is a well-co rticated density adjacent the medial malleolus compatible with remote trauma. Densities along the inf erior margin of the distal fibula also are likely chronic and there are calcaneal spurs. IMPRESSION: 1. No definite acute fracture or dislocation, if symptoms persist follow-up study in 7 to 10 days wou ld be suggested. 2. Densities along the medial and lateral malleoli are most likely chronic appear to been present on the prior exam. Correlate with point tenderness.
[2018-09-25 17:06] VITALS: BP 160/92; PULSE 97; RESP 18
== END 2018-09-25 17:05 | disposition home or self-care (01) ==
LOC: EC 15:17
DX: M25.572 Pain in left ankle and joints of left foot (principal); M79.89 Other specified soft tissue disorders; M79.672 Pain in left foot; R20.2 Paresthesia of skin; I10 Essential (primary) hypertension; K21.9 Gastro-esophageal reflux disease without esophagitis; F17.200 Nicotine dependence, unspecified, uncomplicated; Z88.2 Allergy status to sulfonamides; Z79.899 Other long term (current) drug therapy; Z86.14 Personal history of Methicillin resistant Staphylococcus aureus infection
CPT/HCPCS: 99283

== ENCOUNTER 2018-10-28 15:14 | Emergency (ER) | payer MEDICARE, OTHER ==
[2018-10-28 15:24] VITALS: BP 184/99; PULSE 85; RESP 16; TEMP 98.7
[2018-10-28] MEDS ORDERED: IBUPROFEN 600 MG TAB PO STA (15:38)
--- NOTE | 2018-10-28 15:40 | ED ---
Lower Extremity Injury HPI - General Chief Complaint: Extremity Injury, Lower Stated Complaint: rt sided hip pain Time Seen by Provider: 10/28/18 15:29 Source: patient Mode of arrival: wheelchair Limitations: no limitations - History of Present Illness Initial Comments: Patient is a 33-year-old female presenting to the emergency Department with complaints of right hip pain 1 day. Patient states she bent over to pick something up off the floor last night and had pain in her right hip. She states the pain has gotten worse over the last 24 hours. Patient denies any previous injury to the right hip. Patient states the pain is on the outside of the hip and hurts to the touch. Denies radiation of pain. Patient has no other complaints at this time. - Related Data Home Medications Medication Instructions Recorded Confirmed Lisinopril [Prinivil] 20 mg PO DAILY 02/05/17 02/19/18 Omeprazole [PriLOSEC] 20 mg PO DAILY 02/05/17 02/19/18 Previous Rx's Medication Instructions Recorded Ibuprofen [Motrin] 600 mg PO Q6HR PRN #20 tab 12/08/17 Ibuprofen [Motrin] 600 mg PO Q6HR PRN #40 day 06/07/18 Allergies Allergy/AdvReac Type Severity Reaction Status Date / Time Sulfa (Sulfonamide Allergy Rash/Hives Verified 10/28/18 15:24 Antibiotics) Review of Systems ROS Statement: Those systems with pertinent positive or pertinent negative responses have been documented in the HPI. ROS Other: All systems not noted in ROS Statement are negative. Past Medical History Past Medical History: Asthma, GERD/Reflux, Hypertension Additional Past Medical History / Comment(s): frequent headache, "back pain", ovarian cysts. She is being tested for a "swollen liver". History of Any Multi-Drug Resistant Organisms: MRSA Date of last positivie culture/infection: 2012 MDRO Source:: Right thigh Past Surgical History: Tonsillectomy Additional Past Surgical History / Comment(s): removal of MRSA Past Psychological History: Depression Smoking Status: Current every day smoker Past Alcohol Use History: Occasional Past Drug Use History: Marijuana - Past Family History Mother Family Medical History: Cancer (Stage IV breast cancer. Tested negative for "breast cancer gene" per the patient .) Additional Family Medical History / Comment(s): To maternal aunts had breast cancer. A maternal aunt had throat cancer. Maternal uncle had prostate cancer. General Exam - General Exam Comments Initial Comments: GENERAL: Well-appearing, overweight, and in no acute distress. HEAD: Atraumatic, normocephalic. EYES: Pupils equal round and reactive to light, extraocular movements intact, sclera anicteric, conjunctiva are normal. ENT: TMs normal, nares patent, oropharynx clear without exudates. Moist mucous membranes. NECK: Normal range of motion, supple without lymphadenopathy or JVD. LUNGS: Breath sounds clear to auscultation bilaterally and equal. No wheezes rales or rhonchi. HEART: Regular rate and rhythm without murmurs, rubs or gallops. ABDOMEN: Soft, nontender, normoactive bowel sounds. No guarding, no rebound. No masses appreciated. : Deferred EXTREMITIES: Pain with palpation over the right trochanter bursa. Normal right hip range of motion. NEUROLOGICAL: Cranial nerves II through XII grossly intact. Normal speech, normal gait. PSYCH: Normal mood, normal affect. SKIN: Warm, Dry, normal turgor, no rashes or lesions noted. Limitations: no limitations Course Vital Signs 10/28/18 15:21 Temperature 98.7 F Pulse Rate 85 Respiratory 16 Rate Blood Pressure 184/99 O2 Sat by Pulse 95 Oximetry Medical Decision Making - Medical Decision Making Patient is a 33-year-old female complaining of right hip pain 1 day. Patient states she bent over to pick something up off the ground and had pain in her right hip. Patient denies any previous injuries to her right hip x-ray were hip reveals no acute injuries. Patient was counseled on right hip bursitis. Patient will be discharged. Disposition Clinical Impression: Trochanteric bursitis, right hip Disposition: HOME SELF-CARE Condition: Stable Instructions (If sedation given, give patient instructions): Hip Pain (ED) Additional Instructions: Please return to the Emergency Department if symptoms worsen or any other concerns. Use heat and/or ice and Motrin. Is patient prescribed a controlled substance at d/c from ED?: No Referrals: Chen Bennett MD [Primary Care Provider] - 1-2 days
--- NOTE | 2018-10-28 16:07 | XR ---
EXAMINATION TYPE: XR Hip Complete RT DATE OF EXAM: 10/28/2018 CLINICAL HISTORY: Right hip pain. TECHNIQUE: AP and frogleg views of the right hip are obtained. COMPARISON: None. FINDINGS: There is no acute fracture/dislocation evident in the right hip. Mild superior joint space loss with moderate acetabular spurring is present. Correlate for cam-type impingement in patient of this age. The overlying soft tissue appears unremarkable. IMPRESSION: As above.
== END 2018-10-28 16:30 | disposition home or self-care (01) ==
LOC: EC 15:14
DX: M70.61 Trochanteric bursitis, right hip (principal); I10 Essential (primary) hypertension; K21.9 Gastro-esophageal reflux disease without esophagitis; F17.200 Nicotine dependence, unspecified, uncomplicated; Z87.42 Personal history of other diseases of the female genital tract; Z86.14 Personal history of Methicillin resistant Staphylococcus aureus infection; Z79.899 Other long term (current) drug therapy; Z88.2 Allergy status to sulfonamides; X50.1XXA Overexertion from prolonged static or awkward postures, initial encounter; Y93.89 Activity, other specified
CPT/HCPCS: 73502; 99283

== ENCOUNTER 2019-01-04 22:25 | Emergency (ER) | payer MEDICARE, OTHER ==
--- NOTE | 2019-01-04 23:21 | ED ---
General Adult HPI - General Chief complaint: Fall Stated complaint: Rt knee injury Time Seen by Provider: 01/04/19 22:36 Source: patient Mode of arrival: wheelchair Limitations: no limitations - History of Present Illness Initial comments: Dictation was produced using [employer] dictation software. please excuse any grammatical, word or spelling errors. Chief Complaint: 33-year-old female presents with bilateral knee pain. History of Present Illness: 3-year-old female she was walking up some broken steps when she started to fall backwards. Patient states she landed on her gluteus area. During the fall she hurt her knee. She was able to ambulate however was limping significantly. He states that she feels as though her right knee is swollen. She does not feel like it dislocated and relocated. She reports that her entire anterior right knee hurts. She also complains of left knee lateral pain. Patient denies any numbness, tingling or paresthesias to either of the extremities. No other pain complaints. The ROS documented in this emergency department record has been reviewed and confirmed by me. Those systems with pertinent positive or negative responses have been documented in the HPI. All other systems are other negative and/or noncontributory. PHYSICAL EXAM: General Impression: Alert and oriented x3, not in acute distress HEENT: Normocephalic atraumatic, extra-ocular movements intact, pupils equal and reactive to light bilaterally, mucous membranes moist. Cardiovascular: Heart regular rate and rhythm, S1&S2 audible, no murmurs, rubs or gallops Chest: Lungs clear to auscultation bilaterally, no rhonchi, no wheeze, no rales Abdomen: Bowel sounds present, abdomen soft, non-tender, non-distended, no organomegaly Musculoskeletal: Pulses present and equal in all extremities, no peripheral edema, no knee effusion to the left or right knee Motor: no focal deficits noted Neurological: CN II-XII grossly intact, no focal motor or sensory deficits noted Skin: Intact with no visualized rashes Psych: Normal affect and mood ED course: 33-year-old female presents with bilateral knee pain. She suffered a fall approximately 30 minutes prior to arrival. Vital signs upon arrival are within acceptable limits. Patient has large BMI. She has however equal and good pulses to the bilateral dorsalis pedis. ABIs were performed to the right lower extremity and found to be within acceptable limits. No concern for popliteal arterial injury to the right knee. Bilateral knee x-rays were unremarkable. Patient able to ambulate with minimal complications. Discussed patient has negative x-rays and has benign knee examinations. Patient able to with minimal complications. There is a little clinical suspicion of ligamentous or soft tissue injury given the benign appearance of the knees. Patient counseled on rest ice compression and elevation. Still to follow-up with primary care physician. Patient told that she may need MRI if she has persistent pain. Patient understandable and agreeable to discharge. - Related Data Home Medications Medication Instructions Recorded Confirmed Lisinopril [Prinivil] 20 mg PO DAILY 02/05/17 01/04/19 Dextroamphetamine/Amphetamine 10 mg PO DAILY 01/04/19 01/04/19 [Adderall] Ibuprofen [Motrin] 800 mg PO TID PRN 01/04/19 01/04/19 Allergies Allergy/AdvReac Type Severity Reaction Status Date / Time Sulfa (Sulfonamide Allergy Rash/Hives Verified 01/04/19 22:48 Antibiotics) Review of Systems ROS Statement: Those systems with pertinent positive or pertinent negative responses have been documented in the HPI. ROS Other: All systems not noted in ROS Statement are negative. Past Medical History Past Medical History: Asthma, GERD/Reflux, Hypertension Additional Past Medical History / Comment(s): frequent headache, "back pain", ovarian cysts. She is being tested for a "swollen liver". History of Any Multi-Drug Resistant Organisms: MRSA Date of last positivie culture/infection: 2012 MDRO Source:: Right thigh Past Surgical History: Tonsillectomy Additional Past Surgical History / Comment(s): removal of MRSA Past Psychological History: Depression Smoking Status: Current every day smoker Past Alcohol Use History: Occasional Past Drug Use History: Marijuana - Past Family History Mother Family Medical History: Cancer (Stage IV breast cancer. Tested negative for "breast cancer gene" per the patient .) Additional Family Medical History / Comment(s): To maternal aunts had breast cancer. A maternal aunt had throat cancer. Maternal uncle had prostate cancer. General Exam Limitations: no limitations Course Vital Signs 01/04/19 01/04/19 22:28 23:27 Temperature 98 F Pulse Rate 100 Respiratory 20 Rate Blood Pressure 164/104 193/106 O2 Sat by Pulse 98 Oximetry Disposition Clinical Impression: Knee pain Disposition: HOME SELF-CARE Condition: Good Instructions (If sedation given, give patient instructions): Fall Prevention for Older Adults (ED) Is patient prescribed a controlled substance at d/c from ED?: No Referrals: Chen Bennett MD [Primary Care Provider] - 1-2 days Time of Disposition: 23:57
--- NOTE | 2019-01-04 23:46 | XR ---
EXAM: XR Left Knee, 3 views XR Right Knee, 3 views CLINICAL HISTORY: ITS.REASON XR Reason: Pain TECHNIQUE: Three views of the bilateral knees. COMPARISON: No relevant prior studies available. FINDINGS: Bones/joints: Unremarkable. No acute fracture. No dislocation. Soft tissues: Unremarkable. IMPRESSION: Normal bilateral knee x-rays.
[2019-01-05 00:02] VITALS: BP 187/94; PULSE 78; RESP 18; TEMP 98.1
== END 2019-01-05 00:01 | disposition home or self-care (01) ==
LOC: EC 22:25
DX: M25.562 Pain in left knee (principal); M25.561 Pain in right knee; I10 Essential (primary) hypertension; F17.200 Nicotine dependence, unspecified, uncomplicated; Z79.899 Other long term (current) drug therapy; Z88.2 Allergy status to sulfonamides; Z86.14 Personal history of Methicillin resistant Staphylococcus aureus infection; W10.9XXA Fall (on) (from) unspecified stairs and steps, initial encounter; Y93.01 Activity, walking, marching and hiking
CPT/HCPCS: 99283

== ENCOUNTER → 2019-01-29 | Outpatient (CLI) | payer MEDICARE, OTHER ==
[2019-01-29 10:19] LABS: Anisocytosis Slight; Basophils # (A) 0.1 k/uL (0-0.2); Basophils % (A) 1 %; Eosinophils # (A) 0.3 k/uL (0-0.7); Eosinophils % (A) 3 %; HCT 38.5 % (34.0-46.0); HGB 12.9 gm/dL (11.4-16.0); Lymphocytes # (A) 2.2 k/uL (1.0-4.8); Lymphocytes % (A) 23 %; MCH 26.6 pg (25.0-35.0); MCHC 33.4 g/dL (31.0-37.0); MCV 79.7 fL (80.0-100.0); Microcytosis Slight; Monocytes # (A) 0.5 k/uL (0-1.0); Monocytes % (A) 5 %; Neutrophils # (A) 6.5 k/uL (1.3-7.7); Neutrophils % (A) 67 %; Platelet Count 272 k/uL (150-450); RBC 4.83 m/uL (3.80-5.40); RDW 16.8 % (11.5-15.5); WBC 9.6 k/uL (3.8-10.6)
[2019-01-29 12:36] LABS: Erythrocyte Sedimentation Rate 26 mm/hr (0-20)
[2019-01-29 16:45] LABS: Rheumatoid Factor 8 IU/mL (0-15)
[2019-01-29 16:55] LABS: African American GFR (CKD) 139.8 (60.0-200.0); Anion Gap 7.4 mmol/L (4.00-12.00); BUN/Creat Ratio 16.67 Ratio (12.00-20.00); C Reactive Protein 1.4 mg/dL (0.0-0.8); Calcium 9.1 mg/dL (8.7-10.3); Carbon Dioxide 23.6 mmol/L (21.6-31.8); Potassium 4.1 mmol/L (3.5-5.5); Uric Acid 5.7 mg/dL (2.9-7.7)
[2019-01-29 16:58] LABS: Cyclic Citrull Pep IgG Unit <0.5 U/mL; Cyclic Citrullinated Pep IgG NEGATIVE (NEGATIVE)
[2019-01-29 17:01] LABS: Vitamin D 25 Hydroxy 14.1 ng/mL (30.0-100.0)
[2019-01-30 10:23] LABS: HLA B27 NEGATIVE
[2019-01-30 12:58] LABS: Angiotensin-1 Converting Enz. 11 U/L (8-52)
== END | disposition home or self-care (01) ==
LOC: LABWHC1 09:30
PROVIDERS: ATTEND Orthopaedic Surgery
DX: S82.134D Nondisplaced fracture of medial condyle of right tibia, subsequent encounter for closed fracture with routine healing (principal); E55.9 Vitamin D deficiency, unspecified; M25.461 Effusion, right knee; I10 Essential (primary) hypertension; M22.41 Chondromalacia patellae, right knee; F17.210 Nicotine dependence, cigarettes, uncomplicated; Z68.41 Body mass index [BMI] 40.0-44.9, adult
CPT/HCPCS: 36415; 80048; 82164; 82306; 82550; 83520; 84439; 84443; 84450; 84460; 84550; 85025; 85652; 86038; 86140; 86200; 86431; 86812

== ENCOUNTER 2019-05-01 18:45 | Observation (INO) | payer MEDICARE, OTHER ==
[2019-05-01] MEDS ORDERED: LISINOPRIL 20 MG TAB PO STA (19:19)
[2019-05-01] MEDS ORDERED: ACETAMINOPHEN TAB 325 MG TAB PO STA (19:20)
[2019-05-01] MEDS ORDERED: FLUTICASONE 50MCG/SPRAY NASAL 16GM EA NOSTRIL PRN (19:20)
[2019-05-01 19:49] LABS: Appearance,Urine Clear (Clear); Bilirubin,Urine Negative (Negative); Blood,Urine Negative (Negative); Color,Urine Yellow; Glucose,Urine (UA) Negative (Negative); Hyaline Casts,Urine 1 /lpf (0-2); Ketones,Urine Negative (Negative); Leukocyte Esterase,Urine Negative (Negative); Mucus,Urine Few /hpf; Nitrite,Urine Negative (Negative); Protein,Urine 1+ (Negative); RBC,Urine 1 /hpf (0-5); Specific Gravity,Urine 1.028 (1.001-1.035); Squamous Epithelial Cell,Urine 3 /hpf (0-4); Urobilinogen,Urine <2.0 mg/dL (<2.0); WBC,Urine 4 /hpf (0-5)
--- NOTE | 2019-05-01 20:00 | CT ---
EXAMINATION TYPE: CT brain wo con DATE OF EXAM: 05/01/2019 COMPARISON: October 19, 2017 HISTORY: headaches, sinus congestion CT DLP: combined DLP 867.7 mGycm Automated exposure control for dose reduction was used. Ventricles and sulci appear normal. There is no mass effect nor midline shift. There is no sign of in tracranial hemorrhage. Calvarium is intact. There is extensive mucosal thickening in the sphenoid eth moid frontal and maxillary sinuses. IMPRESSION: Normal CT scan of the brain. Pansinusitis that appears new compared to old exam.
--- NOTE | 2019-05-01 20:04 | CT ---
EXAMINATION TYPE: CT facial bones wo con DATE OF EXAM: 05/01/2019 COMPARISON: None FINDINGS: the mandibular ring is intact. Temporomandibular joints are intact. Zygomatic arches appear normal. N sorin bone is intact. The maxilla is intact. There is moderate mucosal thickening in the maxillary sin uses. There is extensive ethmoid sinus mucosal thickening. There is extension into the sphenoid and e thmoid sinuses also. I see no focal bone destruction. There is no evidence of a blowout fracture. The re is mucosal thickening at the ostiomeatal complex bilaterally. The orbital margins are intact. Ther e is no evidence of retro-orbital mass. HISTORY: headaches, sinus congestion CT DLP: combined DLP 867.7 mGycm Automated exposure control for dose reduction was used. Impression Clark sinusitis that is more severe in the ethmoid air cells. Bilateral impaction of the ostiomeatal co mplex.
[2019-05-01 20:17] LABS: Basophils % (A) 0 %; Eosinophils # (A) 0.4 k/uL (0-0.7); Eosinophils % (A) 3 %; HCT 40.9 % (34.0-46.0); HGB 13.1 gm/dL (11.4-16.0); Lymphocytes # (A) 2.5 k/uL (1.0-4.8); Lymphocytes % (A) 19 %; MCH 25.1 pg (25.0-35.0); MCV 78.6 fL (80.0-100.0); Mean Platelet Volume 7.7; Monocytes # (A) 0.7 k/uL (0-1.0); Monocytes % (A) 5 %; Neutrophils # (A) 9.7 k/uL (1.3-7.7); Neutrophils % (A) 72 %; Platelet Count 274 k/uL (150-450); RBC 5.21 m/uL (3.80-5.40); RDW 15.9 % (11.5-15.5); WBC 13.5 k/uL (3.8-10.6)
[2019-05-01] MEDS ORDERED: HYDROmorphone 1 MG/ML 1 ML SYRINGE IVP STA (20:20)
[2019-05-01] MEDS ORDERED: ENALAPRILAT 1.25 MG/ML 1 ML VIAL IVP STA (20:20)
[2019-05-01] MEDS ORDERED: LABETALOL 5 MG/ML VIAL MDV IVP STA (20:20)
[2019-05-01 20:28] LABS: ALT 18 U/L (4-34); AST 21 U/L (14-36); African American GFR (CKD) >90 (>60 ml/min/1.73 sqM); Albumin 4.2 g/dL (3.5-5.0); Alkaline Phosphatase 109 U/L (38-126); Anion Gap 10 mmol/L; Blood Urea Nitrogen 8 mg/dL (7-17); Calcium 9.6 mg/dL (8.4-10.2); Carbon Dioxide 27 mmol/L (22-30); Chloride 102 mmol/L (98-107); Glucose 105 mg/dL (74-99); Non-African American GFR(CKD) >90 (>60 ml/min/1.73 sqM); Potassium 3.8 mmol/L (3.5-5.1); Sodium 139 mmol/L (137-145); Total Bilirubin 0.4 mg/dL (0.2-1.3); Total Protein 7.2 g/dL (6.3-8.2)
[2019-05-01] MEDS ORDERED: AMPICILLIN-SULBACTAM 3 GM in SODIUM CHLORIDE 0.9% 100 ML IVPB STA (21:17)
[2019-05-01] MEDS ORDERED: NALOXONE 0.4 MG/ML 1 ML VIAL IV PRN (21:21)
[2019-05-01] MEDS ORDERED: LABETALOL 5 MG/ML VIAL MDV IVP PRN (21:23)
--- NOTE | 2019-05-01 21:24 | ED ---
General Adult HPI - General Chief complaint: Upper Respiratory Infection Stated complaint: Congested Time Seen by Provider: 05/01/19 19:08 Source: patient, RN notes reviewed, old records reviewed Mode of arrival: ambulatory Limitations: no limitations - History of Present Illness Initial comments: 34-year-old female patient past history significant for headache disorder, retention presents to ED chief complaint of one month of sinusitis. Patient fourth that she has been on 2 courses of antibiotics by her primary care physician. She believes that these are Augmentin and doxycycline. She last completed the last one approximately 1.5 weeks ago. Patient reports that she continues to have maxillary sinus congestion pressure. Reports this causing her to have frontal lobe headaches. Reports these have been waxing and waning for the last month. Denies worst headache of life. Denies any other complaints at this time. Denies any chance of being . Systemic: Pt denies fatigue, fever/chills, rash. Pt denies weakness, night sweats, weight loss. Neuro: Pt denies visual disturbances, syncope or pre-syncope. HEENT: Pt denies ocular discharge or irritation, otalgia, rhinorrhea, pharyngitis or notable lymphadenopathy. Cardiopulmonary: Pt denies chest pain, SOB, heart palpitations, dyspnea on exertion. Abdominal/GI: Pt denies abdominal pain, n/v/d. : Pt denies dysuria, burning w/ urination, frequency/urgency. Denies new onset urinary or bowel incontinence. MSK: Pt denies myalgia, loss of strength or function in extremities. Neuro: Pt denies new onset weakness, paresthesias. - Related Data Home Medications Medication Instructions Recorded Confirmed Lisinopril [Prinivil] 20 mg PO DAILY 02/05/17 01/04/19 Dextroamphetamine/Amphetamine 10 mg PO DAILY 01/04/19 01/04/19 [Adderall] Ibuprofen [Motrin] 800 mg PO TID PRN 01/04/19 01/04/19 Allergies Allergy/AdvReac Type Severity Reaction Status Date / Time Sulfa (Sulfonamide Allergy Rash/Hives Verified 01/04/19 22:48 Antibiotics) Review of Systems ROS Statement: Those systems with pertinent positive or pertinent negative responses have been documented in the HPI. ROS Other: All systems not noted in ROS Statement are negative. Past Medical History Past Medical History: Asthma, GERD/Reflux, Hypertension Additional Past Medical History / Comment(s): frequent headache, "back pain", ovarian cysts. She is being tested for a "swollen liver". History of Any Multi-Drug Resistant Organisms: MRSA Date of last positivie culture/infection: 2012 MDRO Source:: Right thigh Past Surgical History: Tonsillectomy Additional Past Surgical History / Comment(s): removal of MRSA Past Psychological History: Depression Smoking Status: Current every day smoker Past Alcohol Use History: Occasional Past Drug Use History: Marijuana - Past Family History Mother Family Medical History: Cancer (Stage IV breast cancer. Tested negative for "breast cancer gene" per the patient .) Additional Family Medical History / Comment(s): To maternal aunts had breast cancer. A maternal aunt had throat cancer. Maternal uncle had prostate cancer. General Exam - General Exam Comments Initial Comments: Constitutional: NAD, AOX3, Pt has pleasant affect. HEENT: NC/AT, trachea midline, neck supple, no lymphadenopathy. Posterior pharynx non erythematous, without exudates. External ears appear normal, without discharge. TMs pale rivera bilaterally. Mucous membranes moist. Eyes PERRLA, EOM intact. There is no scleral icterus. No pallor noted. Sinus pressure reproducible upon palpation, maxillary region. Cardiopulmonary: RRR, no murmurs, rubs or gallops, no JVD noted. Lungs CTAB in anterior and posterior park. No peripheral edema. Abdominal exam: Abdomen soft and non-distended. Abdomen non-tender to palpation in all 4 quadrants. Bowel sounds active in LLQ. No hepatosplenomegaly. No ecchymosis Neuro: CN II-XII intact. No nuchal rigidity. No raccon eyes, no ahmadi sign, no hemotympanum. No cervical spinal tenderness. MSK: No posterior calf tenderness bilaterally, homans sign negative bilaterally. Posterior tibialis and radial pulse +2 bilaterally. Sensation intact in upper and lower extremities. Full active ROM in upper and lower extremities, 5/5 stregnth. Limitations: no limitations Course Vital Signs 05/01/19 05/01/19 05/01/19 18:46 20:05 20:22 Temperature 97.8 F 97.9 F Pulse Rate 102 H 105 H 103 H Respiratory 20 18 20 Rate Blood Pressure 179/130 245/149 236/137 O2 Sat by Pulse 97 97 95 Oximetry 05/01/19 05/01/19 20:46 20:58 Temperature Pulse Rate 96 92 Respiratory 18 18 Rate Blood Pressure 199/120 167/93 O2 Sat by Pulse 98 92 L Oximetry Medical Decision Making - Medical Decision Making 34-year-old female patient presents to ED chief complaint of sinus congestion 1 month. Waxing and waning headaches. Patient vital signs displayed hyp ertension. Physical exam displayed reproducible sinus pressure palpation. Normal neurologic exam. Laboratory investigations revealed multiple to test of 13.5. UA non-impressive. Patient initial blood pressure was 179/130. Patient was administered her home dose of Cipro which she had not taken today. Upon repeat vital signs patient blood pressure elevated into the 200s systolic. Patient was initiated on IV antihypertensives, EKG and troponin was drawn. Troponin 0.033. EKG nonischemic. CT facial bones displayed pansinusitis. CT brain was negative. Patient be admitted for sinusitis, hypertensive emergency. Blood pressure at time of admission 167/93. Case discussed in depth with Dr. Loyola. - Lab Data Result diagrams: 05/01/19 19:55 05/01/19 19:55 Lab Results 05/01/19 05/01/19 05/01/19 Range/Units 19:36 19:36 19:55 WBC 13.5 H (3.8-10.6) k/uL RBC 5.21 (3.80-5.40) m/uL Hgb 13.1 (11.4-16.0) gm/dL Hct 40.9 (34.0-46.0) % MCV 78.6 L (80.0-100.0) fL MCH 25.1 (25.0-35.0) pg MCHC 32.0 (31.0-37.0) g/dL RDW 15.9 H (11.5-15.5) % Plt Count 274 (150-450) k/uL Neutrophils % 72 % Lymphocytes % 19 % Monocytes % 5 % Eosinophils % 3 % Basophils % 0 % Neutrophils # 9.7 H (1.3-7.7) k/uL Lymphocytes # 2.5 (1.0-4.8) k/uL Monocytes # 0.7 (0-1.0) k/uL Eosinophils # 0.4 (0-0.7) k/uL Basophils # 0.0 (0-0.2) k/uL Sodium (137-145) mmol/L Potassium (3.5-5.1) mmol/L Chloride (98-107) mmol/L Carbon Dioxide (22-30) mmol/L Anion Gap mmol/L BUN (7-17) mg/dL Creatinine (0.52-1.04) mg/dL Est GFR (CKD-EPI)AfAm (>60 ml/min/1.73 sqM) Est GFR (CKD-EPI)NonAf (>60 ml/min/1.73 sqM) Glucose (74-99) mg/dL Calcium (8.4-10.2) mg/dL Total Bilirubin (0.2-1.3) mg/dL AST (14-36) U/L ALT (4-34) U/L Alkaline Phosphatase (38-126) U/L Troponin I (0.000-0.034) ng/mL Total Protein (6.3-8.2) g/dL Albumin (3.5-5.0) g/dL Urine Color Yellow Urine Appearance Clear (Clear) Urine pH 6.0 (5.0-8.0) Ur Specific [place] 1.028 (1.001-1.035) Urine Protein 1+ H (Negative) Urine Glucose (UA) Negative (Negative) Urine Ketones Negative (Negative) Urine Blood Negative (Negative) Urine Nitrite Negative (Negative) Urine Bilirubin Negative (Negative) Urine Urobilinogen <2.0 (<2.0) mg/dL Ur Leukocyte Esterase Negative (Negative) Urine RBC 1 (0-5) /hpf Urine WBC 4 (0-5) /hpf Ur Squamous Epith Cells 3 (0-4) /hpf Hyaline Casts 1 (0-2) /lpf Urine Mucus Few H (None) /hpf Urine HCG, Qual Not Detected (Not Detectd) 05/01/19 05/01/19 Range/Units 19:55 19:55 WBC (3.8-10.6) k/uL RBC (3.80-5.40) m/uL Hgb (11.4-16.0) gm/dL Hct (34.0-46.0) % MCV (80.0-100.0) fL MCH (25.0-35.0) pg MCHC (31.0-37.0) g/dL RDW (11.5-15.5) % Plt Count (150-450) k/uL Neutrophils % % Lymphocytes % % Monocytes % % Eosinophils % % Basophils % % Neutrophils # (1.3-7.7) k/uL Lymphocytes # (1.0-4.8) k/uL Monocytes # (0-1.0) k/uL Eosinophils # (0-0.7) k/uL Basophils # (0-0.2) k/uL Sodium 139 (137-145) mmol/L Potassium 3.8 (3.5-5.1) mmol/L Chloride 102 (98-107) mmol/L Carbon Dioxide 27 (22-30) mmol/L Anion Gap 10 mmol/L BUN 8 (7-17) mg/dL Creatinine 0.56 (0.52-1.04) mg/dL Est GFR (CKD-EPI)AfAm >90 (>60 ml/min/1.73 sqM) Est GFR (CKD-EPI)NonAf >90 (>60 ml/min/1.73 sqM) Glucose 105 H (74-99) mg/dL Calcium 9.6 (8.4-10.2) mg/dL Total Bilirubin 0.4 (0.2-1.3) mg/dL AST 21 (14-36) U/L ALT 18 (4-34) U/L Alkaline Phosphatase 109 (38-126) U/L Troponin I 0.033 (0.000-0.034) ng/mL Total Protein 7.2 (6.3-8.2) g/dL Albumin 4.2 (3.5-5.0) g/dL Urine Color Urine Appearance (Clear) Urine pH (5.0-8.0) Ur Specific [place] (1.001-1.035) Urine Protein (Negative) Urine Glucose (UA) (Negative) Urine Ketones (Negative) Urine Blood (Negative) Urine Nitrite (Negative) Urine Bilirubin (Negative) Urine Urobilinogen (<2.0) mg/dL Ur Leukocyte Esterase (Negative) Urine RBC (0-5) /hpf Urine WBC (0-5) /hpf Ur Squamous Epith Cells (0-4) /hpf Hyaline Casts (0-2) /lpf Urine Mucus (None) /hpf Urine HCG, Qual (Not Detectd) Disposition Clinical Impression: Sinusitis, Hypertensive emergency Disposition: ADMITTED IP TO THIS [facility] Condition: Serious Is patient prescribed a controlled substance at d/c from ED?: No Referrals: Chen Bennett MD [Primary Care Provider] - 1-2 days
[2019-05-01] MEDS: SODIUM CHLORIDE 0.9% 1,000 ML IV SCH (21:40)
--- NOTE | 2019-05-01 21:48 | ED ---
Medical Decision Making - Lab Data Result diagrams: 05/01/19 19:55 05/01/19 19:55 Lab Results 05/01/19 05/01/19 05/01/19 Range/Units 19:36 19:36 19:55 WBC 13.5 H (3.8-10.6) k/uL RBC 5.21 (3.80-5.40) m/uL Hgb 13.1 (11.4-16.0) gm/dL Hct 40.9 (34.0-46.0) % MCV 78.6 L (80.0-100.0) fL MCH 25.1 (25.0-35.0) pg MCHC 32.0 (31.0-37.0) g/dL RDW 15.9 H (11.5-15.5) % Plt Count 274 (150-450) k/uL Neutrophils % 72 % Lymphocytes % 19 % Monocytes % 5 % Eosinophils % 3 % Basophils % 0 % Neutrophils # 9.7 H (1.3-7.7) k/uL Lymphocytes # 2.5 (1.0-4.8) k/uL Monocytes # 0.7 (0-1.0) k/uL Eosinophils # 0.4 (0-0.7) k/uL Basophils # 0.0 (0-0.2) k/uL Sodium (137-145) mmol/L Potassium (3.5-5.1) mmol/L Chloride (98-107) mmol/L Carbon Dioxide (22-30) mmol/L Anion Gap mmol/L BUN (7-17) mg/dL Creatinine (0.52-1.04) mg/dL Est GFR (CKD-EPI)AfAm (>60 ml/min/1.73 sqM) Est GFR (CKD-EPI)NonAf (>60 ml/min/1.73 sqM) Glucose (74-99) mg/dL Calcium (8.4-10.2) mg/dL Total Bilirubin (0.2-1.3) mg/dL AST (14-36) U/L ALT (4-34) U/L Alkaline Phosphatase (38-126) U/L Troponin I (0.000-0.034) ng/mL Total Protein (6.3-8.2) g/dL Albumin (3.5-5.0) g/dL Urine Color Yellow Urine Appearance Clear (Clear) Urine pH 6.0 (5.0-8.0) Ur Specific [place] 1.028 (1.001-1.035) Urine Protein 1+ H (Negative) Urine Glucose (UA) Negative (Negative) Urine Ketones Negative (Negative) Urine Blood Negative (Negative) Urine Nitrite Negative (Negative) Urine Bilirubin Negative (Negative) Urine Urobilinogen <2.0 (<2.0) mg/dL Ur Leukocyte Esterase Negative (Negative) Urine RBC 1 (0-5) /hpf Urine WBC 4 (0-5) /hpf Ur Squamous Epith Cells 3 (0-4) /hpf Hyaline Casts 1 (0-2) /lpf Urine Mucus Few H (None) /hpf Urine HCG, Qual Not Detected (Not Detectd) 05/01/19 05/01/19 Range/Units 19:55 19:55 WBC (3.8-10.6) k/uL RBC (3.80-5.40) m/uL Hgb (11.4-16.0) gm/dL Hct (34.0-46.0) % MCV (80.0-100.0) fL MCH (25.0-35.0) pg MCHC (31.0-37.0) g/dL RDW (11.5-15.5) % Plt Count (150-450) k/uL Neutrophils % % Lymphocytes % % Monocytes % % Eosinophils % % Basophils % % Neutrophils # (1.3-7.7) k/uL Lymphocytes # (1.0-4.8) k/uL Monocytes # (0-1.0) k/uL Eosinophils # (0-0.7) k/uL Basophils # (0-0.2) k/uL Sodium 139 (137-145) mmol/L Potassium 3.8 (3.5-5.1) mmol/L Chloride 102 (98-107) mmol/L Carbon Dioxide 27 (22-30) mmol/L Anion Gap 10 mmol/L BUN 8 (7-17) mg/dL Creatinine 0.56 (0.52-1.04) mg/dL Est GFR (CKD-EPI)AfAm >90 (>60 ml/min/1.73 sqM) Est GFR (CKD-EPI)NonAf >90 (>60 ml/min/1.73 sqM) Glucose 105 H (74-99) mg/dL Calcium 9.6 (8.4-10.2) mg/dL Total Bilirubin 0.4 (0.2-1.3) mg/dL AST 21 (14-36) U/L ALT 18 (4-34) U/L Alkaline Phosphatase 109 (38-126) U/L Troponin I 0.033 (0.000-0.034) ng/mL Total Protein 7.2 (6.3-8.2) g/dL Albumin 4.2 (3.5-5.0) g/dL Urine Color Urine Appearance (Clear) Urine pH (5.0-8.0) Ur Specific [place] (1.001-1.035) Urine Protein (Negative) Urine Glucose (UA) (Negative) Urine Ketones (Negative) Urine Blood (Negative) Urine Nitrite (Negative) Urine Bilirubin (Negative) Urine Urobilinogen (<2.0) mg/dL Ur Leukocyte Esterase (Negative) Urine RBC (0-5) /hpf Urine WBC (0-5) /hpf Ur Squamous Epith Cells (0-4) /hpf Hyaline Casts (0-2) /lpf Urine Mucus (None) /hpf Urine HCG, Qual (Not Detectd) - EKG Data -: EKG Interpreted by Me (and Dr. Loyola) EKG Comments: Ventricular rate 91, GA interval 190, QRS 96, QT/QTC 390/49. Room since rhythm, rightward axis, prolonged QT, abnormal EKG. No concern for acute ischemia this time. Disposition Clinical Impression: Sinusitis, Hypertensive emergency Disposition: ADMITTED IP TO THIS HOSP Condition: Serious Is patient prescribed a controlled substance at d/c from ED?: No
[2019-05-01] MEDS: LORazepam 1 MG TAB PO PRN (22:41)
[2019-05-02] MEDS ORDERED: hydrALAZINE HCL 20 MG/ML 1 ML VIAL IVP PRN
[2019-05-02] MEDS: HYDROmorphone 1 MG/ML 1 ML SYRINGE IVP PRN ×3 (01:06→17:05)
[2019-05-02] MEDS: AMPICILLIN-SULBACTAM 3 GM in SODIUM CHLORIDE 0.9% 100 ML IVPB SCH ×5 (01:07→23:18)
[2019-05-02] MEDS: LISINOPRIL 20 MG TAB PO SCH (08:44)
[2019-05-02] MEDS: METOPROLOL TARTRATE 50 MG TAB PO SCH ×2 (08:44→20:11)
[2019-05-02] MEDS: SODIUM CHLORIDE 0.9% 1,000 ML IV SCH (08:45)
--- NOTE | 2019-05-02 09:43 | P.HPIM ---
History of Present Illness this is a pleasant 34 years old female with past medical history of asthma and GERD and hypertension.patient presents because of severe headache on the right side related to her right-sided sinusitis has been going on for about a month. She went to her PCP who prescribed her Augmentin and Claritin with no benefit. she says that her headache was severe and his been going on for 2 days. Currently is better assess 5-60/10. Patient also complaining from clogged nose and dry mouth, she is coughing with green phlegm. She denies chest pain or dyspnea. She takes only lisinopril 20 mg at home for headache she smokes about half pack every 2 days, occasional alcohol and marijuana occasionally.,she does not want nicotine patch as a headache. presentation patient blood pressure was on the high side 245/149,patient got 1 dose of mg orally and labetalol 20 mg IV and Vasotec 1.25 milligrams once.currently her blood pressure is 151/93,postoperative Vitas looks stable. Lap showing leukocytosis of 13.5. BMP and liver enzymes are not elevated.urinalysis is not suspicious for infection. at home she was taken only lisinopril 20 g daily for high blood pressure in the emergency room patient was started on Unasyn Review of Systems CONSTITUTIONAL: No fever, no malaise, no fatigue. HEENT: No recent visual problems or hearing problems. Denied any sore throat. CARDIOVASCULAR: No orthopnea, PND, no palpitations, no syncope. PULMONARY: No shortness of breath, no hemoptysis. GASTROINTESTINAL: No diarrhea, no nausea, no vomiting, no abdominal pain. Normoactive bowel sounds. NEUROLOGICAL: No headaches, no weakness, no numbness. HEMATOLOGICAL: Denies any bleeding or petechiae. GENITOURINARY: Denies any burning micturition, frequency, or urgency. MUSCULOSKELETAL/RHEUMATOLOGICAL: Denies any joint pain, swelling, or any muscle pain. ENDOCRINE: Denies any polyuria or polydipsia. Past Medical History Past Medical History: Asthma, GERD/Reflux, Hypertension Additional Past Medical History / Comment(s): frequent headache, "back pain", ovarian cysts. She is being tested for a "swollen liver". History of Any Multi-Drug Resistant Organisms: MRSA Date of last positivie culture/infection: 2012 MDRO Source:: Right thigh Past Surgical History: Tonsillectomy Additional Past Surgical History / Comment(s): removal of MRSA Past Anesthesia/Blood Transfusion Reactions: No Reported Reaction Past Psychological History: Depression Smoking Status: Current every day smoker Past Alcohol Use History: Occasional Past Drug Use History: Marijuana - Past Family History Mother Family Medical History: Cancer Additional Family Medical History / Comment(s): To maternal aunts had breast cancer. A maternal aunt had throat cancer. Maternal uncle had prostate cancer. Medications and Allergies Home Medications Medication Instructions Recorded Confirmed Type Lisinopril [Prinivil] 20 mg PO DAILY 02/05/17 05/01/19 History Dextroamphetamine/Amphetamine 10 - 20 mg PO BID 05/01/19 05/01/19 History [Adderall] Fluticasone Nasal [place] [Flonase 2 spr EA NOSTRIL DAILY PRN 05/01/19 05/01/19 History Nasal [place]] Gabapentin [Neurontin] 100 mg PO BID 05/01/19 05/01/19 History Loratadine [Claritin] 10 mg PO DAILY 05/01/19 05/01/19 History Phenylephrine/Dm/Acetaminop/GG 1 tab PO Q6H PRN 05/01/19 05/01/19 History [Tylenol Cold-Flu Severe Caplet] Allergies Allergy/AdvReac Type Severity Reaction Status Date / Time Sulfa (Sulfonamide Allergy Rash/Hives Verified 05/01/19 22:31 Antibiotics) Physical Exam Vitals: Vital Signs Temp Pulse Pulse Resp BP BP Pulse Ox 05/02/19 08:00 98.4 F 98 24 151/93 96 05/02/19 04:00 97.7 F 90 16 162/90 95 05/02/19 00:00 98.1 F 81 18 143/93 93 L 05/01/19 21:57 86 18 143/81 95 05/01/19 21:42 97.0 F L 84 18 117/85 96 05/01/19 21:10 97.8 F 91 18 152/102 97 05/01/19 20:58 92 18 167/93 92 L 05/01/19 20:46 96 18 199/120 98 05/01/19 20:22 97.9 F 103 H 20 236/137 95 05/01/19 20:05 105 H 18 245/149 97 05/01/19 18:46 97.8 F 102 H 20 179/130 97 Intake and Output 05/01/19 05/02/19 05/02/19 22:59 06:59 14:59 Intake Total 200 Balance 200 Intake: Intake, IV Titration 200 Amount Ampicillin-Sulbactam 3 gm 100 In Sodium Chloride 0.9% 100 ml @ 200 mls/hr IVPB Q6HR [facility] Rx#:[id number] Sodium Chloride 0.9% 1, 100 000 ml @ 100 mls/hr IV . Q10H [facility] Rx#:[id number] Other: Voiding Method Toilet Weight 117.934 kg 116.9 kg GENERAL: The patient is alert and oriented x3, not in any acute distress. obese -HEENT: Pupils are round and equally reacting to light. EOMI. No scleral icterus. conjunctivitis. Normocephalic, atraumatic. No pharyngeal erythema. No thyromegaly. right maxillary and frontal sinus tenderness CARDIOVASCULAR: S1 and S2 present. No murmurs, rubs, or gallops. PULMONARY: Chest is clear to auscultation, no wheezing or crackles. ABDOMEN: Soft, nontender, nondistended, normoactive bowel sounds. No palpable organomegaly. MUSCULOSKELETAL: No joint swelling or deformity. EXTREMITIES: No cyanosis, clubbing, or pedal edema. NEUROLOGICAL: Gross neurological examination did not reveal any focal deficits. SKIN: No rashes. No petechiae Results CBC & Chem 7: 05/01/19 19:55 05/01/19 19:55 Labs: Abnormal Lab Results - Last 24 Hours (Table) 05/01/19 05/01/19 05/01/19 Range/Units 19:36 19:55 19:55 WBC 13.5 H (3.8-10.6) k/uL MCV 78.6 L (80.0-100.0) fL RDW 15.9 H (11.5-15.5) % Neutrophils # 9.7 H (1.3-7.7) k/uL Glucose 105 H (74-99) mg/dL Urine Protein 1+ H (Negative) Urine Mucus Few H (None) /hpf Thrombosis Risk Factor Assmnt - Choose All That Apply Each Factor Represents 1 point: Obesity (BMI >25) Each Risk Factor Represents 3 Points: Family history of DVT/PE Thrombosis Risk Factor Assessment Total Risk Factor Score: 4 Thrombosis Risk Factor Assessment Level: Moderate Risk Assessment and Plan Assessment: hypertensive urgency Severe right sided sinusitis, failed outpatient therapy nicotine dependence substance abuse including marijuana Upper respiratory tract infection asthma not in acute exacerbation GERD Plan: This is a pleasant 34 days old female who presents with hypertensive urgency. Patient has blood pressure is controlled with IV medication. We'll upgrade her oral antihypertensive.Continue with antibiotics. So sputum culture. Check influenza.consult ENT.stop no muscle and start [id number] saline Labs and medication were reviewed.. Continue same treatment. Continue with sy mptomatic treatment. Resume home medication. Monitor lytes and vitals. DVT and GI prophylaxis. Further recommendations of the clinical course of the patient DVT prophylaxis: Subcutaneous heparin GI Prophylaxis: Pepcid PT/OT: Pending Prognosis is guarded
[2019-05-02 09:51] LABS: Basophils % (A) 0 %; Eosinophils # (A) 0.2 k/uL (0-0.7); Eosinophils % (A) 1 %; HCT 36.9 % (34.0-46.0); HGB 11.9 gm/dL (11.4-16.0); Hypochromasia Slight; Lymphocytes # (A) 1.5 k/uL (1.0-4.8); Lymphocytes % (A) 12 %; MCH 25.8 pg (25.0-35.0); MCHC 32.1 g/dL (31.0-37.0); MCV 80.2 fL (80.0-100.0); Mean Platelet Volume 8.1; Monocytes # (A) 0.4 k/uL (0-1.0); Monocytes % (A) 4 %; Neutrophils # (A) 9.7 k/uL (1.3-7.7); Neutrophils % (A) 82 %; Platelet Count 270 k/uL (150-450); RDW 15.6 % (11.5-15.5); WBC 11.9 k/uL (3.8-10.6)
[2019-05-02 09:53] LABS: HCG,Qualitative Serum Not Detected
[2019-05-02 09:55] LABS: African American GFR (CKD) >90 (>60 ml/min/1.73 sqM); Anion Gap 10 mmol/L; Blood Urea Nitrogen 7 mg/dL (7-17); Calcium 8.9 mg/dL (8.4-10.2); Carbon Dioxide 25 mmol/L (22-30); Chloride 103 mmol/L (98-107); Glucose 203 mg/dL (74-99); Non-African American GFR(CKD) >90 (>60 ml/min/1.73 sqM); Potassium 3.6 mmol/L (3.5-5.1); Sodium 138 mmol/L (137-145)
--- NOTE | 2019-05-02 12:11 | CONS ---
CONSULTATION This patient's electronic medical records and labs are reviewed. We are requested to see the patient for uncontrolled blood pressure. This patient came to the emergency room with a complaint of right facial pains and severe headache on the right side. The patient has been treated for right-sided pneumonia. The patient does have a history of hypertension. She says she did not take her medications yesterday. In the emergency room, patient's blood pressure was significantly elevated. Patient received lisinopril, labetalol and IV Vasotec and subsequently her blood pressure got better. She usually smokes half a pack every 2 days. Occasionally drinks alcohol as well as smokes marijuana. The patient denies any history of exertional chest discomfort. She has a history of high blood pressure for the last one year. PAST MEDICAL HISTORY: Includes history of tonsillectomy and history of MRSA infection. MEDICATIONS: Home medications included Adderall, Prinivil, Neurontin and Claritin. PHYSICAL EXAMINATION: At present reveals a 34-year-old obese built female who does not appear to be in any acute distress. Patient's blood pressure is 151/93 mmHg, heart rate is 98 per minute. HEENT examination is negative. Neck is supple. There is no increase in jugular venous pressure. Both the carotid pulses are felt there is no bruit. Chest is symmetrical. Heart the PMI is not felt. First and second heart sounds are normal. There is no evidence of any murmur. Lungs are clinically clear to auscultation and percussion. Abdomen is negative. Extremities: Peripheral pulsations are 2+. EKG shows a normal sinus rhythm with possible LVH. There is evidence of a rightward axis noted. FINAL IMPRESSION: This patient is admitted with the symptoms suggestive of sinusitis. The patient had a significantly elevated blood pressure in the emergency room, which is under better control now. We will add amlodipine 5 mg daily. Echo and Doppler study will be done. MMODL / IJN: [id number] /
[2019-05-02] MEDS: DEXTROSE 5%-0.45% NACL 1,000 ML IV SCH ×2 (13:21→20:11)
--- NOTE | 2019-05-02 15:30 | P.GSCN ---
History of Present Illness Consult date: 05/02/19 Reason for Consult: facial pain Requesting physician: Chen Bennett History of present illness: this is a 34-year-old white female obese who has had recurring sinusitis. She suffers from 1-2 cases of sinusitis annually. Approximately 2-3 weeks ago she developed some upper respiratory tract infection symptoms including nasal congestion, green drainage from her nose, sneezing etc. She was placed on 2 different antibiotics. Her primary care physician but did not respond and ended up in the emergency room with complaints of facial pain pressure and discolored drainage etc. CAT scan imaging reveals acute pansinusitis with significant involvement of the frontal maxillary ethmoid and sphenoid sinuses. He has a large amount of intranasal edema. Polyps are suspect in the ethmoid region. She then placed on Unasyn and has only been on Unasyn for a short time and has noted some improvement. I've been asked to consult regarding this patient's sinus infection. She denies any ocular symptoms. Denies any neurologic symptoms. Denies any headaches. Review of Systems - Constitutional Reports lethargy, Denies anorexia - EENT Eyes: denies blurred vision, denies bulging eye, denies decreased vision, denies diplopia, denies discharge, denies dry eye, denies irritation, denies itching, denies pain, denies photophobia, denies loss of peripheral vision, denies loss of vision, denies tunnel vision/blind spots Ears: deny: decreased hearing, ear discharge, earache, tinnitus - Respiratory Reports cough - Gastrointestinal Denies bloating - Genitourinary Menstruation: Reports as per HPI - Musculoskeletal Denies arm numbness/tingling - Integumentary Denies acne - Neurological Denies aphasia - Psychiatric Denies anxiety - Endocrine Denies cold intolerance - Hematologic/Lymphatic Denies easy bleeding Past Medical History Past Medical History: Asthma, GERD/Reflux, Hypertension Additional Past Medical History / Comment(s): frequent headache, "back pain", ovarian cysts. She is being tested for a "swollen liver". History of Any Multi-Drug Resistant Organisms: MRSA Year Discovered:: 2012 MDRO Source:: Right thigh Past Surgical History: Tonsillectomy Additional Past Surgical History / Comment(s): removal of MRSA Past Anesthesia/Blood Transfusion Reactions: No Reported Reaction Past Psychological History: Depression Smoking Status: Current every day smoker Past Alcohol Use History: Occasional Past Drug Use History: Marijuana - Past Family History Mother Family Medical History: Cancer Additional Family Medical History / Comment(s): To maternal aunts had breast cancer. A maternal aunt had throat cancer. Maternal uncle had prostate cancer. Medications and Allergies Home Medications Medication Instructions Recorded Confirmed Type Lisinopril [Prinivil] 20 mg PO DAILY 02/05/17 05/01/19 History Dextroamphetamine/Amphetamine 10 - 20 mg PO BID 05/01/19 05/01/19 History [Adderall] Fluticasone Nasal [place] [Flonase 2 spr EA NOSTRIL DAILY PRN 05/01/19 05/01/19 History Nasal [place]] Gabapentin [Neurontin] 100 mg PO BID 05/01/19 05/01/19 History Loratadine [Claritin] 10 mg PO DAILY 05/01/19 05/01/19 History Phenylephrine/Dm/Acetaminop/GG 1 tab PO Q6H PRN 05/01/19 05/01/19 History [Tylenol Cold-Flu Severe Caplet] Allergies Allergy/AdvReac Type Severity Reaction Status Date / Time Sulfa (Sulfonamide Allergy Rash/Hives Verified 05/01/19 22:31 Antibiotics) Surgical - Exam Osteopathic Statement: *. No significant issues noted on an osteopathic structural exam other than those noted in the History and Physical/Consult. Vital Signs Temp Pulse Resp BP Pulse Ox 97.8 F 102 H 20 179/130 97 05/01/19 18:46 05/01/19 18:46 05/01/19 18:46 05/01/19 18:46 05/01/19 18:46 - General no distress, obese - Eyes PERRL, normal ocular movement - ENT head is normocephalic the face is symmetric. There is tenderness to the maxillary and frontal sinuses. Nose shows intranasal purulence. Mouth and throat upper part palate is edentulous. No oral lesions are seen. Neck is unremarkable. Otologic exam is unremarkable. normal nares, normal mucosa - Neck no masses - Respiratory normal expansion - Abdomen Abdomen: soft - Integumentary no rash, no growths - Neurologic normal coordination, normal sensation - Musculoskeletal normal gait - Psychiatric oriented to time, oriented to person, oriented to place, speech is normal, memory intact Results - Labs 05/02/19 08:08 05/02/19 08:08 Abnormal Lab Results - Last 24 Hours (Table) 05/01/19 05/01/19 05/01/19 Range/Units 19:36 19:55 19:55 WBC 13.5 H (3.8-10.6) k/uL MCV 78.6 L (80.0-100.0) fL RDW 15.9 H (11.5-15.5) % Neutrophils # 9.7 H (1.3-7.7) k/uL Creatinine (0.52-1.04) mg/dL Glucose 105 H (74-99) mg/dL Urine Protein 1+ H (Negative) Urine Mucus Few H (None) /hpf 05/02/19 05/02/19 Range/Units 08:08 08:08 WBC 11.9 H (3.8-10.6) k/uL MCV (80.0-100.0) fL RDW 15.6 H (11.5-15.5) % Neutrophils # 9.7 H (1.3-7.7) k/uL Creatinine 0.50 L (0.52-1.04) mg/dL Glucose 203 H (74-99) mg/dL Urine Protein (Negative) Urine Mucus (None) /hpf Diabetes panel 05/01/19 05/02/19 Range/Units 19:55 08:08 Sodium 139 138 (137-145) mmol/L Potassium 3.8 3.6 (3.5-5.1) mmol/L Chloride 102 103 (98-107) mmol/L Carbon Dioxide 27 25 (22-30) mmol/L BUN 8 7 (7-17) mg/dL Creatinine 0.56 0.50 L (0.52-1.04) mg/dL Glucose 105 H 203 H (74-99) mg/dL Calcium 9.6 8.9 (8.4-10.2) mg/dL AST 21 (14-36) U/L ALT 18 (4-34) U/L Alkaline Phosphatase 109 (38-126) U/L Total Protein 7.2 (6.3-8.2) g/dL Albumin 4.2 (3.5-5.0) g/dL Calcium panel 05/01/19 05/02/19 Range/Units 19:55 08:08 Calcium 9.6 8.9 (8.4-10.2) mg/dL Albumin 4.2 (3.5-5.0) g/dL Pituitary panel 05/01/19 05/02/19 Range/Units 19:55 08:08 Sodium 139 138 (137-145) mmol/L Potassium 3.8 3.6 (3.5-5.1) mmol/L Chloride 102 103 (98-107) mmol/L Carbon Dioxide 27 25 (22-30) mmol/L BUN 8 7 (7-17) mg/dL Creatinine 0.56 0.50 L (0.52-1.04) mg/dL Glucose 105 H 203 H (74-99) mg/dL Calcium 9.6 8.9 (8.4-10.2) mg/dL Adrenal panel 05/01/19 05/02/19 Range/Units 19:55 08:08 Sodium 139 138 (137-145) mmol/L Potassium 3.8 3.6 (3.5-5.1) mmol/L Chloride 102 103 (98-107) mmol/L Carbon Dioxide 27 25 (22-30) mmol/L BUN 8 7 (7-17) mg/dL Creatinine 0.56 0.50 L (0.52-1.04) mg/dL Glucose 105 H 203 H (74-99) mg/dL Calcium 9.6 8.9 (8.4-10.2) mg/dL Total Bilirubin 0.4 (0.2-1.3) mg/dL AST 21 (14-36) U/L ALT 18 (4-34) U/L Alkaline Phosphatase 109 (38-126) U/L Total Protein 7.2 (6.3-8.2) g/dL Albumin 4.2 (3.5-5.0) g/dL Assessment and Plan (1) Acute pansinusitis Current Visit: Yes Status: Acute Code(s): J01.40 - ACUTE PANSINUSITIS, UN SPECIFIED SNOMED Code(s): 7460487 (2) Hypertrophy of inferior nasal turbinate Current Visit: Yes Status: Acute Code(s): J34.3 - HYPERTROPHY OF NASAL TURBINATES SNOMED Code(s): 20702066 Plan: this patient is currently on appropriate antibiotic therapy. She's currently on Unasyn and we could add steroids to her therapy. She is on a nasal topical steroid fluticasone. IV Solu-Medrol can be added if she does not improve. I would continue her on antibiotics until we see significant improvement then discharge her on Augmentin high dose. I've given her my card and she Follow up with me or her family physician per her choice. ALLERGY testing was discussed and recommended.
[2019-05-02] MEDS: FAMOTIDINE 20 MG/2 ML VIAL IV SCH (20:11)
[2019-05-02] MEDS: HEPARIN SODIUM,PORCINE 5,000 UNIT/ML 1 ML VIAL SQ SCH (20:11)
[2019-05-02] MEDS: LORazepam 1 MG TAB PO PRN (23:23)
[2019-05-03] MEDS: AMPICILLIN-SULBACTAM 3 GM in SODIUM CHLORIDE 0.9% 100 ML IVPB SCH (05:24)
[2019-05-03 05:29] VITALS: TEMP 98
[2019-05-03 06:56] LABS: Anisocytosis Slight; Basophils % (A) 0 %; Eosinophils # (A) 0.2 k/uL (0-0.7); Eosinophils % (A) 2 %; HCT 36.2 % (34.0-46.0); HGB 11.3 gm/dL (11.4-16.0); Lymphocytes # (A) 2.3 k/uL (1.0-4.8); Lymphocytes % (A) 25 %; MCHC 31.1 g/dL (31.0-37.0); MCV 80.5 fL (80.0-100.0); Mean Platelet Volume 7.8; Monocytes # (A) 0.6 k/uL (0-1.0); Monocytes % (A) 7 %; Neutrophils # (A) 5.8 k/uL (1.3-7.7); Neutrophils % (A) 63 %; Platelet Count 218 k/uL (150-450); RDW 16.1 % (11.5-15.5); WBC 9.1 k/uL (3.8-10.6)
[2019-05-03 07:14] LABS: African American GFR (CKD) >90 (>60 ml/min/1.73 sqM); Anion Gap 7 mmol/L; Blood Urea Nitrogen 6 mg/dL (7-17); Calcium 8.8 mg/dL (8.4-10.2); Carbon Dioxide 27 mmol/L (22-30); Chloride 106 mmol/L (98-107); Glucose 100 mg/dL (74-99); Non-African American GFR(CKD) >90 (>60 ml/min/1.73 sqM); Sodium 140 mmol/L (137-145)
[2019-05-03 08:18] VITALS: BP 152/92; PULSE 94; RESP 20
[2019-05-03] MEDS: METOPROLOL TARTRATE 50 MG TAB PO SCH (08:27)
[2019-05-03] MEDS: LISINOPRIL 20 MG TAB PO SCH (08:27)
[2019-05-03] MEDS: FAMOTIDINE 20 MG/2 ML VIAL IV SCH (08:27)
[2019-05-03] MEDS: HEPARIN SODIUM,PORCINE 5,000 UNIT/ML 1 ML VIAL SQ SCH (08:27)
[2019-05-03] MEDS: HYDROmorphone 1 MG/ML 1 ML SYRINGE IVP PRN (08:28)
[2019-05-03] MEDS ORDERED: amLODIPine 5 MG TAB PO SCH (09:00)
--- NOTE | 2019-05-03 12:23 | P.DS ---
Providers Date of admission: 05/01/19 21:42 Attending physician: Harry Hall Consults: 05/01/19 21:21 Consult Physician Stat Consulting Provider: Pierce Amezquita Consult Reason/Comments: hypertensive emergency Do you want consulting provider notified?: Yes, Notify in am 05/02/19 09:44 Consult Physician Urgent Consulting Provider: Obed Cox Reason/Comments: severe sinusitis Do you want consulting provider notified?: Yes Primary care physician: Sabrina Siddiqui Hospital Course: Diagnoses: hypertensive urgency Severe right sided sinusitis, failed outpatient therapy nicotine dependence substance abuse including marijuana Upper respiratory tract infection asthma not in acute exacerbation GERD Hospital course: this is a pleasant 34 years old female with past medical history of asthma and GERD and hypertension.patient presents because of severe headache on the right side related to her right-sided sinusitis has been going on for about a month. She went to her PCP who prescribed her Augmentin and Claritin with no benefit. she says that her headache was severe and his been going on for 2 days. Currently is better assess 5-60/10. Patient also complaining from clogged nose and dry mouth, she is coughing with green phlegm. She denies chest pain or dyspnea. She takes only lisinopril 20 mg at home for hypertension. presentation patient blood pressure was on the high side 245/149. she smokes about half pack every 2 days, occasional alcohol and marijuana occasionally.,she does not want nicotine patch as a headache worse with it. Patient was admitted and treated with IV Unasyn and IV fluids, Dilaudid and symptomatic treatment. Also metoprolol 50 mg and Norvasc 5 mg were added with better blood pressure control. Patient showed significant improvement. Patient has been evaluated by sweeper driver and ENT specialist. Her leukocytosis improved from 13.5 came down to 9.1 today. Patient's symptoms improved by 50% and patient asked the medical team to be discharged today and follow-up as an outpatient. On the day of discharge patient denies other symptoms. No chest pain or dyspnea. No change in urine or bowel habits. No fever. Patient was cleared for discharge by all consultants Problems and management plan were discussed with the patient and he verbalized understanding and acceptance Patient was found stable and can be discharged home however he needs follow-up as an outpatient. Patient was instructed to follow up with PCP within one week and patient agrees. Patient agrees with the appointments made for her with her PCP Dr. Zee on 05/07 and said she will follow up on that time located. Also as Dr. Cox advised her she will go and see him in the office if she feels she needs to, medical team encourage her to follow up with him. The patient was counseled extensively to quit smoking as it is thought it is contributing significantly to her worsening symptoms of sinusitis. Gen: patient is a AAOx3, no distress -Head and neck: Right maxillary and frontal sinus tenderness CVS: S1-S2, RRR, no murmur Lungs: B/L CTA, no wheezing Abdomen: soft, no distention, no tenderness, positive bowel sounds Extremity: no leg edema or induration Time spent more than 35 minutes Patient Condition at Discharge: Serious Plan - Discharge Summary New Discharge Prescriptions: New Amoxicillin/Potassium Clav [Augmentin 875-125 Tablet] 1 tab PO Q12HR 7 Days #14 tab Ibuprofen 600 mg PO Q8HR PRN #10 tablet PRN Reason: Pain Metoprolol Tartrate [Lopressor] 50 mg PO BID #60 tab amLODIPine [Norvasc] 5 mg PO DAILY #30 tab Famotidine [Pepcid] 20 mg PO DAILY #10 tablet HYDROcodone/APAP 7.5-325MG [[place] 7.5-325] 1 tab PO Q8HR PRN 3 Days #9 tab PRN Reason: Severe Pain Continue Lisinopril [Prinivil] 20 mg PO DAILY Loratadine [Claritin] 10 mg PO DAILY Gabapentin [Neurontin] 100 mg PO BID Fluticasone Nasal [place] [Flonase Nasal [place]] 2 spr EA NOSTRIL DAILY PRN PRN Reason: Cold Symptoms Dextroamphetamine/Amphetamine [Adderall] 10 - 20 mg PO BID Phenylephrine/Dm/Acetaminop/GG [Tylenol Cold-Flu Severe [place]] 1 tab PO Q6H PRN PRN Reason: Cold Symptoms Discharge Medication List Lisinopril [Prinivil] 20 mg PO DAILY 02/05/17 [History] Dextroamphetamine/Amphetamine [Adderall] 10 - 20 mg PO BID 05/01/19 [History] Fluticasone Nasal [place] [Flonase Nasal [place]] 2 spr EA NOSTRIL DAILY PRN 05/01/19 [History] Gabapentin [Neurontin] 100 mg PO BID 05/01/19 [History] Loratadine [Claritin] 10 mg PO DAILY 05/01/19 [History] Phenylephrine/Dm/Acetaminop/GG [Tylenol Cold-Flu Severe [place]] 1 tab PO Q6H PRN 05/01/19 [History] Amoxicillin/Potassium Clav [Augmentin 875-125 Tablet] 1 tab PO Q12HR 7 Days #14 tab 05/03/19 [Rx] Famotidine [Pepcid] 20 mg PO DAILY #10 tablet 05/03/19 [Rx] HYDROcodone/APAP 7.5-325MG [[place] 7.5-325] 1 tab PO Q8HR PRN 3 Days #9 tab 05/03/19 [Rx] Ibuprofen 600 mg PO Q8HR PRN #10 tablet 05/03/19 [Rx] Metoprolol Tartrate [Lopressor] 50 mg PO BID #60 tab 05/03/19 [Rx] amLODIPine [Norvasc] 5 mg PO DAILY #30 tab 05/03/19 [Rx] Follow up Appointment(s)/Referral(s): Chen Bennett MD [Primary Care Provider] - 05/07/19 9:50 am Obed Cox DO [Doctor of Osteopathic Medicine] - 10 Days Discharge Disposition: HOME SELF-CARE
--- NOTE | 2019-05-03 12:49 | ECHOF ---
Referral Reason:portable MEASUREMENTS -------- HEIGHT: 170.2 cm WEIGHT: 116.6 kg BP: IVSd: 1.6 cm (0.6 - 1.1) LVIDd: 3.9 cm (3.9 - 5.3) LVPWd: 1.3 cm (0.6 - 1.1) IVSs: 1.6 cm LVIDs: 2.8 cm LVPWs: 1.9 cm LAESV Index (A-L): 25.28 ml/m Ao Diam: 2.5 cm (2.0 - 3.7) AV Cusp: 1.3 cm (1.5 - 2.6) LA Diam: 4.5 cm (2.7 - 3.8) MV E Fernando: 1.11 m/s MV DecT: 225 ms MV A Fernando: 0.63 m/s MV E/A Ratio: 1.76 RAP: 5.00 mmHg RVSP: 15.39 mmHg FINDINGS -------- Sinus rhythm. This was a technically difficult study with suboptimal apical views. There is moderate concentric left ventricular hypertrophy. Overall left ventricular systolic functi on is normal with, an EF between 55 - 60 %. The diastolic filling pattern is normal for the age of the patient 13.57. The right ventricle is normal in size. Normal LA size by volume 22+/-6 ml/m2. The right atrial size is normal. Lumason used Interatrial and interventricular septum intact. The aortic valve was not well visualized. There is no evidence of aortic regurgitation. There is no evidence of aortic stenosis. No mitral regurgitation. Mild tricuspid regurgitation present. There is no evidence of pulmonary hypertension. The right v entricular systolic pressure, as measured by Doppler, is 15.39mmHg. The aortic root size is normal. IVC Not well visulized. There is no pericardial effusion. CONCLUSIONS -------- 1. Sinus rhythm. 2. This was a technically difficult study with suboptimal apical views. 3. There is moderate concentric left ventricular hypertrophy. 4. Overall left ventricular systolic function is normal with, an EF between 55 - 60 %. 5. The diastolic filling pattern is normal for the age of the patient 13.57 6. The right ventricle is normal in size. 7. Normal LA size by volume 22+/-6 ml/m2. 8. The right atrial size is normal. 9. Lumason used 10. Interatrial and interventricular septum intact. 11. The aortic valve was not well visualized. 12. There is no evidence of aortic regurgitation. 13. There is no evidence of aortic stenosis. 14. No mitral regurgitation. 15. Mild tricuspid regurgitation present. 16. There is no evidence of pulmonary hypertension. 17. The right ventricular systolic pressure, as measured by Doppler, is 15.39mmHg. 18. The aortic root size is normal. 19. IVC Not well visulized. 20. There is no pericardial effusion. PLANT MANAGER: Leigh Ryan RDCS
--- NOTE | 2019-05-03 13:23 | PN ---
PROGRESS NOTE This patient was admitted with history suggestive of sinusitis as well as hypertension. She is doing better. The pain in the patient's headache is improved. Blood pressure now is 150/90 mmHg. First and second heart sounds are normal. Lungs are clear to auscultation and percussion. Continue the current medications and follow the blood pressure as outpatient. MMODL / IJN: [id number] /
== END 2019-05-03 13:10 | disposition home or self-care (01) ==
LOC: EC 18:45 → 3SCARD 21:42 → INTOOBSV 21:42 → UNDODISIN 05-03 13:10
PROVIDERS: ADMIT Hospitalist; ATTEND Hospitalist
DX: I16.0 Hypertensive urgency (principal); Z68.41 Body mass index [BMI] 40.0-44.9, adult; J01.80 Other acute sinusitis; J45.909 Unspecified asthma, uncomplicated; K21.9 Gastro-esophageal reflux disease without esophagitis; F32.9 Major depressive disorder, single episode, unspecified; F17.210 Nicotine dependence, cigarettes, uncomplicated; E66.9 Obesity, unspecified; J34.3 Hypertrophy of nasal turbinates; Z80.8 Family history of malignant neoplasm of other organs or systems; Z80.3 Family history of malignant neoplasm of breast; Z86.14 Personal history of Methicillin resistant Staphylococcus aureus infection; Z88.2 Allergy status to sulfonamides; Z90.89 Acquired absence of other organs; Z87.01 Personal history of pneumonia (recurrent); Z79.899 Other long term (current) drug therapy
CPT/HCPCS: 96376 ×2; 96361 ×2; 96366; 96372 ×2; 96375 ×2; 96365; 99285; 36415; 93005; 80053; 80048 ×2; 84484 ×2; 85025 ×3; 81001; 81025; 84703; 87502; 70486; 70450; G0378 ×3; C8929; J1644 ×2; J1170 ×3; J0295 ×3; Q9950; 93306; 96374

== ENCOUNTER → 2019-07-07 | Outpatient (CLI) | payer MEDICARE ==
[2019-07-07 08:11] VITALS: BP 144/83; PULSE 85; RESP 20; TEMP 97.5
--- NOTE | 2019-07-07 08:51 | P.HPOB ---
History of Present Illness H&P Date: 07/07/19 Chief Complaint: The patient is here for her routine gynecologic exam. This is a 34-year-old G0 with an LMP of 06/13/2019. The patient is without gynecologic complaints and has been using condoms when she is sexually active. She states she is currently not seeing anybody at this time, but has been sexually active with the gentleman on and off for about 1 year. Menses are regular every month. Review of Systems The patient has lost 12 pounds over the last year. She denies respiratory, cardiac, or G.I. problems. Past Medical History Past Medical History: Asthma, GERD/Reflux, Hypertension Additional Past Medical History / Comment(s): frequent headache, "back pain", ovarian cysts. She is being tested for a "swollen liver". Past VAMP THROATER history: She was treated for gonorrhea many years ago. She has no other history of STDs. History of Any Multi-Drug Resistant Organisms: MRSA Date of last positivie culture/infection: 2012 MDRO Source:: Right thigh Past Surgical History: Tonsillectomy Additional Past Surgical History / Comment(s): removal of MRSA Past Anesthesia/Blood Transfusion Reactions: No Reported Reaction Past Psychological History: Depression Smoking Status: Current every day smoker (Half pack per day) Past Alcohol Use History: Occasional (For permanent) Past Drug Use History: Marijuana Additional Drug Use History / Comment(s): She states she stopped using marijuana about 2016. Additional History: The patient is single and is not seeing anybody at this [facility]. She has been sexually active with somebody on and off since 2018. - Past Family History Mother Family Medical History: Cancer Additional Family Medical History / Comment(s): Mother had breast cancer at Age 38. To maternal aunts had breast cancer. A maternal aunt had throat cancer. Maternal uncle had prostate cancer. Medications and Allergies Home Medications Medication Instructions Recorded Confirmed Type Dextroamphetamine/Amphetamine 10 - 20 mg PO BID 05/01/19 07/07/19 History [Adderall] Gabapentin [Neurontin] 100 mg PO BID 05/01/19 07/07/19 History HYDROcodone/APAP 7.5-325MG [[place] 1 tab PO Q8HR PRN 3 Days #9 tab 05/03/19 07/07/19 Rx 7.5-325] Ibuprofen 600 mg PO Q8HR PRN #10 tablet 05/03/19 07/07/19 Rx Metoprolol Tartrate [Lopressor] 50 mg PO BID #60 tab 05/03/19 07/07/19 Rx Allergies Allergy/AdvReac Type Severity Reaction Status Date / Time Sulfa (Sulfonamide Allergy Rash/Hives Verified 07/07/19 08:14 Antibiotics) Exam Vital Signs Temp Pulse Resp BP Pulse Ox 07/07/19 08:06 97.5 F L 85 20 144/83 98 Intake and Output 07/06/19 07/07/19 07/07/19 22:59 06:59 14:59 Other: Weight 122.016 kg Height 5 feet 8 inches, weight 269 pounds, BMI 40.9. This is a well-developed well-nourished heavyset white female who is alert and oriented times 3 in no acute distress. HEENT: Within normal limits. NECK: Supple without mass or thyromegaly. CHEST AND LUNGS: Clear to auscultation. HEART: Regular rate and rhythm. BREASTS: Are without mass or discharge. AXILLARY EXAM: Negative for adenopathy. BACK: Negative for CVA tenderness. ABDOMEN: Soft, obese, nontender, without palpable masses. PELVIC EXAM: Normal external genitalia. Cervix and vagina appear normal. There is no unusual discharge. There is no evidence of prolapse. The uterus is midposition, nongravid size and nontender. There are no palpable adnexal masses or tenderness. Bimanual examination is somewhat limited secondary to her size. RECTAL EXAM: negative for mass or tenderness. EXTREMITIES: Nontender. IMPRESSION: 1. 34-year-old female with normal gynecologic exam using condoms for control. 2. Strong family history of breast cancer including her mother who had breast cancer at age 38. PLAN: 1. Pap smear was performed. 2. Self breast awareness was discussed with the patient. 3. Baseline screening mammogram was recommended because of her strong family history of breast cancer including her mother who had breast cancer at age 38. 4. GC and chlamydia screening was obtained from the cervix. STD prevention was discussed. I have stressed the importance of limiting sexual partners and keeping a monogamous relationship. I have recommended that she continue to use condoms if she is sexually active. 5. She was previously offered genetic testing because of her strong family history of breast cancer. 6. She was advised to return in one year for her annual well woman exam.
[2019-07-08 13:13] LABS: C. trachomatis,PCR Negative (Neg,Equiv); Chlamydia trachomatis Source Cervix; N. gonorrhoeae,PCR Negative (Neg,Equiv); Neisseria Source Cervix
== END | disposition home or self-care (01) ==
LOC: WWCWWP 08:02
PROVIDERS: ATTEND Obstetrics & Gynecology
DX: Z11.3 Encounter for screening for infections with a predominantly sexual mode of transmission (principal)
CPT/HCPCS: 87491; 87591

== ENCOUNTER 2019-12-10 09:57 | Emergency (ER) | payer MEDICARE ==
[2019-12-10 10:14] VITALS: RESP 18
[2019-12-10] MEDS ORDERED: METOCLOPRAMIDE 5 MG/ML 2 ML VIAL IVP STA (10:35)
[2019-12-10] MEDS ORDERED: SODIUM CHLORIDE 0.9% 1,000 ML IV STA (10:35)
[2019-12-10] MEDS ORDERED: KETOROLAC 30 MG/ML 1 ML VIAL IVP STA (10:35)
[2019-12-10] MEDS ORDERED: diphenhydrAMINE 50 MG/ML 1 ML VIAL IVP STA (10:35)
[2019-12-10] MEDS ORDERED: methylPREDNISolone SOD SUCCI 125 MG/2 ML VIAL IV STA (10:36)
[2019-12-10] MEDS ORDERED: ORPHENADRINE 30 MG/ML 2 ML VIAL IVP STA (10:36)
--- NOTE | 2019-12-10 11:08 | ED ---
Headache HPI - General Chief Complaint: Headache Stated Complaint: Congested, Headache Time Seen by Provider: 12/10/19 10:20 Source: RN notes reviewed, old records reviewed Mode of arrival: ambulatory Limitations: no limitations - History of Present Illness Initial Comments: Patient is a 34-year-old female who presents for his first today with migraine headache starting today. She has a history of migraines. She complains some sinus pressure as well. She states that she's had no recorded fevers or chills. She denies any other significant complaints.Patient reports that she has history of hypertension but has not taken her blood pressure medications today. She states that she has no chest pain. She reports no visual changes. - Related Data Home Medications Medication Instructions Recorded Confirmed Ibuprofen [Motrin] 800 mg PO Q8H 12/10/19 12/10/19 Lisinopril [Zestril] 10 mg PO DAILY 12/10/19 12/10/19 Omeprazole 20 mg PO BID 12/10/19 12/10/19 amLODIPine [Norvasc] 5 mg PO DAILY 12/10/19 12/10/19 Previous Rx's Medication Instructions Recorded Metoprolol Tartrate [Lopressor] 50 mg PO BID #60 tab 05/03/19 Amoxic-Pot Clav 875-125Mg 1 tab PO Q12HR #20 tablet 12/10/19 [Augmentin 875-125] Fluticasone Nasal [place] [Flonase 1 spray EA NOSTRIL DAILY #1 bottle 12/10/19 Nasal [place]] Ondansetron [Zofran ODT] 4 mg PO Q8HR #20 tab 12/10/19 Allergies Allergy/AdvReac Type Severity Reaction Status Date / Time Sulfa (Sulfonamide Allergy Rash/Hives Verified 12/10/19 11:54 Antibiotics) Review of Systems ROS Statement: Those systems with pertinent positive or pertinent negative responses have been documented in the HPI. ROS Other: All systems not noted in ROS Statement are negative. Past Medical History Past Medical History: Asthma, GERD/Reflux, Hypertension Additional Past Medical History / Comment(s): frequent headache, "back pain", ovarian cysts. History of Any Multi-Drug Resistant Organisms: MRSA Date of last positivie culture/infection: 2012 MDRO Source:: Right thigh Past Surgical History: Tonsillectomy Additional Past Surgical History / Comment(s): removal of MRSA Past Anesthesia/Blood Transfusion Reactions: No Reported Reaction Past Psychological History: Depression Smoking Status: Current every day smoker Past Alcohol Use History: Occasional Past Drug Use History: Marijuana - Past Family History Mother Family Medical History: Cancer Additional Family Medical History / Comment(s): Mother had breast cancer at Age 38. To maternal aunts had breast cancer. A maternal aunt had throat cancer. Maternal uncle had prostate cancer. General Exam - General Exam Comments Initial Comments: alert and oriented 34-year-old female. No significant distress. Limitations: no limitations General appearance: alert Head exam: Present: atraumatic, normocephalic, normal inspection Eye exam: Present: normal appearance, PERRL, EOMI. Absent: scleral icterus, conjunctival injection, periorbital swelling ENT exam: Present: normal exam, mucous membranes moist, other (Patient has tenderness over maxillary and ethmoid sinuses.) Neck exam: Present: normal inspection. Absent: tenderness, meningismus, lymphadenopathy Respiratory exam: Present: normal lung sounds bilaterally. Absent: respiratory distress, wheezes, rales, rhonchi, stridor Cardiovascular Exam: Present: regular rate, normal rhythm, normal heart sounds. Absent: systolic murmur, diastolic murmur, rubs, gallop, clicks GI/Abdominal exam: Present: soft, normal bowel sounds. Absent: distended, tenderness, guarding, rebound, rigid Extremities exam: Present: normal inspection, full ROM, normal capillary refill. Absent: tenderness, pedal edema, joint swelling, calf tenderness Back exam: Present: normal inspection Neurological exam: Present: alert, oriented X3, CN II-XII intact Psychiatric exam: Present: normal affect, normal mood Skin exam: Present: warm, dry, intact, normal color. Absent: rash Course Vital Signs 12/10/19 12/10/19 12/10/19 10:10 11:28 11:46 Temperature 98 F 97.8 F Pulse Rate 87 91 85 Respiratory 18 18 18 Rate Blood Pressure 206/106 236/115 183/121 O2 Sat by Pulse 98 98 99 Oximetry 12/10/19 12/10/19 12:03 12:16 Temperature Pulse Rate 63 73 Respiratory 18 18 Rate Blood Pressure 155/89 170/100 O2 Sat by Pulse 97 Oximetry Medical Decision Making - Medical Decision Making [id number] female presents recent shortness of migraine headache. Reports that this is not the worst headache of her life and typical of her migraine and sinus headaches. she is no acute neurological deficits. She does have tenderness over the ethmoid sinuses concern for sinusitis. We'll treat the Patient on antibiotics and nasal spray. She is given IV fluids and migraine cocktail, later reports to feeling better. She was found be hypertensive and noncompliant with her high blood pressure. Was given labetalol emergency department, is chest pain or any other significant symptoms. Advised following up with primary care physician regards to these findings. - Lab Data Lab Results 12/10/19 12/10/19 Range/Units 11:02 11:02 Urine Color Yellow Urine Appearance Clear (Clear) Urine pH 7.5 (5.0-8.0) Ur Specific [place] 1.012 (1.001-1.035) Urine Protein 1+ H (Negative) Urine Glucose (UA) Negative (Negative) Urine Ketones Negative (Negative) Urine Blood Negative (Negative) Urine Nitrite Negative (Negative) Urine Bilirubin Negative (Negative) Urine Urobilinogen <2.0 (<2.0) mg/dL Ur Leukocyte Esterase Negative (Negative) Urine RBC <1 (0-5) /hpf Urine WBC 1 (0-5) /hpf Ur Squamous Epith Cells <1 (0-4) /hpf Urine Mucus Occasional H (None) /hpf Urine HCG, Qual Not Detected (Not Detectd) - Radiology Data Radiology results: report reviewed Disposition Clinical Impression: Migraine, Sinusitis Disposition: HOME SELF-CARE Condition: Good Instructions (If sedation given, give patient instructions): Sinusitis (ED), Migraine Headache (ED) Additional Instructions: Please use medication as discussed. Please follow up with family doctor if symptoms have not improved over the next two days. Please return to the emergency room if your symptoms increase or worsen or for any other concerns. Prescriptions: Amoxic-Pot Clav 875-125Mg [Augmentin 875-125] 1 tab PO Q12HR #20 tablet Fluticasone Nasal [place] [Flonase Nasal [place]] 1 spray EA NOSTRIL DAILY #1 bottle Ondansetron [Zofran ODT] 4 mg PO Q8HR #20 tab Is patient prescribed a controlled substance at d/c from ED?: No Referrals: None,Stated [Primary Care Provider] - 1-2 days Chen Bennett MD [REFERRING] - 1-2 days Time of Disposition: 12:25
[2019-12-10 11:18] LABS: Appearance,Urine Clear (Clear); Bilirubin,Urine Negative (Negative); Blood,Urine Negative (Negative); Color,Urine Yellow; Glucose,Urine (UA) Negative (Negative); Ketones,Urine Negative (Negative); Leukocyte Esterase,Urine Negative (Negative); Mucus,Urine Occasional /hpf; Nitrite,Urine Negative (Negative); PH, Urine 7.5 (5.0-8.0); Protein,Urine 1+ (Negative); RBC,Urine <1 /hpf (0-5); Specific Gravity,Urine 1.012 (1.001-1.035); Squamous Epithelial Cell,Urine <1 /hpf (0-4); Urobilinogen,Urine <2.0 mg/dL (<2.0); WBC,Urine 1 /hpf (0-5)
[2019-12-10 11:29] VITALS: TEMP 97.8
[2019-12-10] MEDS ORDERED: LABETALOL 5 MG/ML VIAL MDV IVP STA (11:31)
[2019-12-10 12:16] VITALS: BP 170/100; PULSE 73
== END 2019-12-10 12:39 | disposition home or self-care (01) ==
LOC: EC 09:57
DX: G43.909 Migraine, unspecified, not intractable, without status migrainosus (principal); J32.9 Chronic sinusitis, unspecified; I10 Essential (primary) hypertension; K21.9 Gastro-esophageal reflux disease without esophagitis; F17.200 Nicotine dependence, unspecified, uncomplicated; Z86.14 Personal history of Methicillin resistant Staphylococcus aureus infection; Z79.1 Long term (current) use of non-steroidal anti-inflammatories (NSAID); Z79.899 Other long term (current) drug therapy; Z88.2 Allergy status to sulfonamides
CPT/HCPCS: 99284; 96374; 96375 ×5; 96361; 81001; 81025; J1200; J2360; J2765; J2930; J1885

== ENCOUNTER → 2020-02-23 | Outpatient (CLI) | payer MEDICARE, OTHER ==
--- NOTE | 2020-02-23 17:17 | CT ---
EXAMINATION TYPE: CT brain w con DATE OF EXAM: 02/23/2020 COMPARISON: CT brain without contrast May 01, 2019 HISTORY: headaches CT DLP: 1029.9 mGycm. Automated Exposure Control for Dose Reduction was Utilized. TECHNIQUE: CT scan of the head is performed with IV Contrast, patient injected with 100 mL of Isovu e 300. FINDINGS: The ventricles and sulci are within normal limits in size. [place]-white matter differentia tion is maintained. Postcontrast images show no suspicious enhancing intraparenchymal mass. The globe s are intact and the visualized sinuses are predominantly clear. Occasional tiny mucous retention cys t or polyp in the maxillary sinuses bilaterally. IMPRESSION: No suspicious enhancing masses. Marked interval improvement in paranasal sinus disease.
== END | disposition home or self-care (01) ==
LOC: RADCTMAIN 16:27
PROVIDERS: ATTEND Family Medicine
DX: I10 Essential (primary) hypertension (principal); G44.229 Chronic tension-type headache, not intractable; G62.9 Polyneuropathy, unspecified; G93.2 Benign intracranial hypertension
CPT/HCPCS: 70460; Q9967

== ENCOUNTER 2020-11-27 | Emergency (ER) | payer MEDICARE, OTHER | END 2020-11-27 21:42 | disposition home or self-care (01) ==

== ENCOUNTER → 2021-05-16 | Outpatient (CLI) | payer MEDICARE, OTHER ==
--- NOTE | 2021-05-16 10:37 | MM ---
Reason for exam: clinical finding. Baseline mammogram. History: Patient is nulliparous. Family history of breast cancer in mother at age 36, breast cancer in maternal grandmother, and breast cancer in maternal aunt. Indicated problem(s): pain in the left breast. Physical Findings: Nurse did not find any significant physical abnormalities on exam. MG Diagnostic Mammo w CAD MILAGROS Bilateral CC and MLO view(s) were taken. There are scattered fibroglandular densities. There is no discrete abnormality. These results were verbally communicated with the patient and result sheet given to the patient on 05/16/21. ASSESSMENT: Incomplete: need additional imaging evaluation, BI-RAD 0 RECOMMENDATION: Ultrasound of the left breast. (for pain)
--- NOTE | 2021-05-16 10:37 | USB ---
Reason for exam: additional evaluation requested from abnormal screening. History: Patient is nulliparous. Family history of breast cancer in mother at age 36, breast cancer in maternal grandmother, and breast cancer in maternal aunt. US Breast LT Left complete breast ultrasound includes all four quadrants, the retroareolar region and axilla. Finding demonstrates no cystic or solid lesion seen. These results were verbally communicated with the patient and result sheet given to the patient on 05/16/21. ASSESSMENT: Negative, BI-RAD 1 RECOMMENDATION: Routine screening mammogram of both breasts in 1 year. Manage on a clinical basis with regard to left breast pain and swelling.
== END | disposition home or self-care (01) ==
LOC: RADMAMWWP 07:31
PROVIDERS: ATTEND Family Medicine
DX: R92.8 Other abnormal and inconclusive findings on diagnostic imaging of breast (principal); Z80.3 Family history of malignant neoplasm of breast
CPT/HCPCS: 77066

== ENCOUNTER 2021-08-14 18:40 | Emergency (ER) | payer MEDICARE, OTHER ==
[2021-08-14 18:44] VITALS: TEMP 98.3
--- NOTE | 2021-08-14 20:36 | XR ---
EXAMINATION TYPE: XR shoulder complete LT DATE OF EXAM: 08/14/2021 COMPARISON: NONE HISTORY: Pain TECHNIQUE: 3 views FINDINGS: There is no evidence of fracture nor dislocation. Glenohumeral joint is intact. AC joint is intact. IMPRESSION: Negative left shoulder exam. No fracture.
[2021-08-14] MEDS ORDERED: HYDROcodone/APAP 7.5-325MG 1 EACH TAB PO ONE (22:27)
--- NOTE | 2021-08-14 22:30 | ED ---
Extremity Problem HPI - General Chief complaint: Extremity Problem,Nontraumatic Stated complaint: L shoulder/arm pain Source: patient Mode of arrival: ambulatory Limitations: no limitations - History of Present Illness Initial comments: Patient is a 36-year-old female who presents to the emergency department with a chief complaint left shoulder pain. Patient denies any known mechanism of injury. Patient states the pain is usually intermittent and has been constant this week. Pain is worsened with reaching upward and backward. It is refractory to Motrin. Patient denies neurological symptoms of the left upper extremity such as weakness, numbness, tingling. Patient states she has full range of motion. Patient has appointment with account installation specialist in August. She cannot remember the name of the provider. Patient is seeking pain control until the appointment. - Related Data Home Medications Medication Instructions Recorded Confirmed Ibuprofen [Motrin] 800 mg PO Q8H 12/10/19 12/10/19 Lisinopril [Zestril] 10 mg PO DAILY 12/10/19 12/10/19 Omeprazole 20 mg PO BID 12/10/19 12/10/19 amLODIPine [Norvasc] 5 mg PO DAILY 12/10/19 12/10/19 Previous Rx's Medication Instructions Recorded Metoprolol Tartrate [Lopressor] 50 mg PO BID #60 tab 05/03/19 Amoxic-Pot Clav 875-125Mg 1 tab PO Q12HR #20 tablet 12/10/19 [Augmentin 875-125] Fluticasone Nasal [place] [Flonase 1 spray EA NOSTRIL DAILY #1 bottle 12/10/19 Nasal [place]] Ondansetron [Zofran ODT] 4 mg PO Q8HR #20 tab 12/10/19 Ketorolac [Toradol] 10 mg PO Q8HR 7 Days #21 tab 08/14/21 Lisinopril [Prinivil] 40 mg PO DAILY 7 Days #7 tab 08/14/21 Allergies Allergy/AdvReac Type Severity Reaction Status Date / Time Sulfa (Sulfonamide Allergy Rash/Hives Verified 08/14/21 18:44 Antibiotics) Review of Systems ROS Statement: Those systems with pertinent positive or pertinent negative responses have been documented in the HPI. ROS Other: All systems not noted in ROS Statement are negative. Past Medical History Past Medical History: Asthma, GERD/Reflux, Hypertension Additional Past Medical History / Comment(s): frequent headache, "back pain", ovarian cysts. History of Any Multi-Drug Resistant Organisms: MRSA Date of last positivie culture/infection: 2012 MDRO Source:: Right thigh Past Surgical History: Tonsillectomy Additional Past Surgical History / Comment(s): removal of MRSA Past Anesthesia/Blood Transfusion Reactions: No Reported Reaction Past Psychological History: Depression Smoking Status: Current every day smoker Past Alcohol Use History: Occasional Past Drug Use History: Marijuana - Past Family History Mother Family Medical History: Cancer Additional Family Medical History / Comment(s): Mother had breast cancer at Age 38. To maternal aunts had breast cancer. A maternal aunt had throat cancer. Maternal uncle had prostate cancer. General Exam Limitations: no limitations General appearance: alert, in no apparent distress Head exam: Present: atraumatic, normocephalic, normal inspection Eye exam: Present: normal appearance, PERRL, EOMI. Absent: scleral icterus, conjunctival injection, periorbital swelling Neck exam: Present: normal inspection. Absent: tenderness, meningismus, lymphadenopathy Respiratory exam: Present: normal lung sounds bilaterally. Absent: respiratory distress, wheezes, rales, rhonchi, stridor Cardiovascular Exam: Present: regular rate, normal rhythm, normal heart sounds. Absent: systolic murmur, diastolic murmur, rubs, gallop, clicks GI/Abdominal exam: Present: soft, normal bowel sounds. Absent: distended, tenderness, guarding, rebound, rigid Left Shoulder Exam: Present: normal inspection, full ROM. Absent: tenderness, swelling, abrasion, laceration, ecchymosis, crepitus, dislocation, erythema, tenderness over AC joint Course Vital Signs 08/14/21 18:41 Temperature 98.3 F Pulse Rate 89 Respiratory 20 Rate Blood Pressure 198/103 O2 Sat by Pulse 99 Oximetry Medical Decision Making - Medical Decision Making This is a 36-year-old female who presents with left shoulder pain. Thorough history and examination were performed. My physical exam of the left upper extremity is unremarkable. Left shoulder x-ray is negative for fracture and dislocation. The AC joint is intact. Patient was given [place] for pain. Results discussed with patient. Patient encouraged to follow-up by her account installation specialist appointment for rule out rotator cuff injury. Patient's blood pressure remained consistently high during her visit. Patient reports that she takes 40 mg of lisinopril daily and has been out of the medication. She states she is unable to contact her primary care provider. I ordered first dose of 40 mg lisinopril to take here in the emergency department and prescribed patient 1 week of lisinopril until she can see her primary care provider however patient told the nurse she could not wait for the order to come from pharmacy and left without taking any hypertension medication today. Toradol was sent to the pharmacy. Dr. Loyola is my attending. Disposition Clinical Impression: Left shoulder pain Disposition: HOME SELF-CARE Condition: Good Additional Instructions: Please take medication as prescribed. Follow-up at your previously scheduled account installation specialist appointment in August. I encouraged continue to move and stretch the left shoulder as tolerated. Please follow-up with your primary care provider at earliest available appointment for refill on blood pressure medication. Return to the emergency department if you experience new, conc erning, or worsening symptoms. Prescriptions: Lisinopril [Prinivil] 40 mg PO DAILY 7 Days #7 tab Ketorolac [Toradol] 10 mg PO Q8HR 7 Days #21 tab Is patient prescribed a controlled substance at d/c from ED?: No Referrals: Ervin Schwarz [Primary Care Provider] - 1-2 days Time of Disposition: 22:30
[2021-08-14] MEDS ORDERED: lisinopriL 20 MG TAB PO STA (23:32)
[2021-08-14 23:37] VITALS: BP 198/106; PULSE 81; RESP 18
== END 2021-08-14 23:34 | disposition home or self-care (01) ==
LOC: EC 18:40
DX: M25.512 Pain in left shoulder (principal); I10 Essential (primary) hypertension; K21.9 Gastro-esophageal reflux disease without esophagitis; J45.909 Unspecified asthma, uncomplicated; F17.200 Nicotine dependence, unspecified, uncomplicated; F12.90 Cannabis use, unspecified, uncomplicated; Z79.899 Other long term (current) drug therapy
CPT/HCPCS: 99283

== ENCOUNTER → 2022-01-16 | Outpatient (CLI) | payer MEDICARE, OTHER ==
--- NOTE | 2022-01-17 08:26 | XR ---
EXAMINATION TYPE: XR knee complete LT DATE OF EXAM: 01/16/2022 COMPARISON: NONE HISTORY: Pain TECHNIQUE: Three views are submitted. FINDINGS: Mild hypertrophic change of the patellofemoral joint large spur extending off the anterior margin pat sonya. Small suprapatellar bursal fluid collection.. Osseous structures are intact. No acute fractur e seen. IMPRESSION: 1. There is a large bony spur excrescence extending off the anterior margin of patella with a small s uprapatellar bursal fluid collection. Recommend MRI follow-up.
--- NOTE | 2022-01-17 08:27 | XR ---
EXAM TYPE: LUMBAR SPINE X RAY SERIES COMPARISON: NONE HISTORY: Pain TECHNIQUE: Three views are submitted. FINDINGS: Alignment is anatomic. The pedicles are intact. The transverse processes are intact. There is diff use osteopenia with hypertrophic spurring and facet arthropathy at all levels. Degenerative disc dise ase L3-4 and L5-S1. Degenerative disc disease thoracolumbar junction. Bilateral SI joint arthropathy IMPRESSION: 1. Multilevel hypertrophic and degenerative changes with multilevel facet arthropathy. 2. Hypertrophic SI joint arthropathy
== END | disposition home or self-care (01) ==
LOC: RADXRMAIN 17:47
PROVIDERS: ATTEND Family Medicine
DX: M25.562 Pain in left knee (principal); M51.34 Other intervertebral disc degeneration, thoracic region; M51.37 Other intervertebral disc degeneration, lumbosacral region
CPT/HCPCS: 72100

== ENCOUNTER 2022-01-17 08:52 | Emergency (ER) | payer MEDICARE, OTHER ==
[2022-01-17 09:05] VITALS: BP 158/83; PULSE 85; RESP 20; TEMP 97.6
--- NOTE | 2022-01-17 09:46 | ED ---
Lower Extremity Injury HPI - General Chief Complaint: Extremity Injury, Lower Stated Complaint: leg pain & swelling Time Seen by Provider: 01/17/22 08:57 Source: patient, RN notes reviewed Mode of arrival: ambulatory Limitations: no limitations - History of Present Illness Initial Comments: 36-year-old female presents emergency Department chief complaint of left leg pain. Patient states she's been having increasing left leg pain for several weeks. Patient states she saw her primary care physician had x-rays performed yesterday left knee and back. Patient states that she has no back pain denies any fevers or chills denies any bowel, bladder incontinence or retention or saddle anesthesias. Patient states she is able to ambulate no weakness no history of blood clots states she does have family history of DVT. Patient denies any clotting disorders. Patient denies abdominal pain no other complaints. - Related Data Home Medications Medication Instructions Recorded Confirmed Gabapentin [Neurontin] 200 mg PO BID 01/17/22 01/17/22 Ibuprofen [Motrin] 600 mg PO Q6HR PRN 01/17/22 01/17/22 Previous Rx's Medication Instructions Recorded lisinopriL [Prinivil] 40 mg PO DAILY 7 Days #7 tab 08/14/21 predniSONE 50 mg PO DAILY #5 tab 01/17/22 Allergies Allergy/AdvReac Type Severity Reaction Status Date / Time Sulfa (Sulfonamide Allergy Rash/Hives Verified 01/17/22 10:00 Antibiotics) Review of Systems ROS Statement: Those systems with pertinent positive or pertinent negative responses have been documented in the HPI. ROS Other: All systems not noted in ROS Statement are negative. Past Medical History Past Medical History: Asthma, GERD/Reflux, Hypertension Additional Past Medical History / Comment(s): frequent headache, "back pain", ovarian cysts. History of Any Multi-Drug Resistant Organisms: MRSA Date of last positivie culture/infection: 2012 MDRO Source:: Right thigh Past Surgical History: Tonsillectomy Additional Past Surgical History / Comment(s): removal of MRSA Past Anesthesia/Blood Transfusion Reactions: No Reported Reaction Past Psychological History: Depression Smoking Status: Current every day smoker Past Alcohol Use History: Occasional Past Drug Use History: Marijuana - Past Family History Mother Family Medical History: Cancer Additional Family Medical History / Comment(s): Mother had breast cancer at Age 38. To maternal aunts had breast cancer. A maternal aunt had throat cancer. Maternal uncle had prostate cancer. General Exam Limitations: no limitations General appearance: alert, in no apparent distress Head exam: Present: atraumatic, normocephalic, normal inspection Eye exam: Present: normal appearance, PERRL, EOMI. Absent: scleral icterus, conjunctival injection, periorbital swelling Respiratory exam: Present: normal lung sounds bilaterally. Absent: respiratory distress, wheezes, rales, rhonchi, stridor Cardiovascular Exam: Present: regular rate, normal rhythm, normal heart sounds. Absent: systolic murmur, diastolic murmur, rubs, gallop, clicks GI/Abdominal exam: Present: soft, normal bowel sounds. Absent: distended, tenderness, guarding, rebound, rigid Extremities exam: Present: other (Lower extremity strength equal bilaterally, neurovascular intact equal tenderness to the calf, no laxity of the knee) Course Vital Signs 01/17/22 09:03 Temperature 97.6 F Pulse Rate 85 Respiratory 20 Rate Blood Pressure 158/83 O2 Sat by Pulse 99 Oximetry Medical Decision Making - Medical Decision Making 36-year-old presented for left leg pain. Patient's symptoms are consistent with lumbar to Do. She has no red flag symptoms. X-ray was reviewed from yesterday of her back and knees she does have large bone spur of her left knee can follow-up for MRI. She had negative ultrasound and is neurovascularly intact. Return parameters were discussed. Disposition Clinical Impression: Lumbar radiculopathy, acute Disposition: HOME SELF-CARE Condition: Stable Instructions (If sedation given, give patient instructions): Lumbar Radiculopathy (ED) Additional Instructions: Please return to the Emergency Department if symptoms worsen or any other concerns. Prescriptions: predniSONE 50 mg PO DAILY #5 tab Is patient prescribed a controlled substance at d/c from ED?: No Referrals: Ervin Schwarz [Primary Care Provider] - 1-2 days Kishore Galan DO [Doctor of Osteopathic Medicine] - 1-2 days Time of Disposition: 10:23
--- NOTE | 2022-01-17 10:03 | US ---
EXAMINATION TYPE: US venous doppler duplex LE LT DATE OF EXAM: 01/17/2022 9:56 AM COMPARISON: 08/29/2017 CLINICAL HISTORY: pain. pain and edema left leg x 1 week SIDE PERFORMED: left TECHNIQUE: The lower extremity deep venous system is examined utilizing real time linear array sonog alyssia with graded compression, doppler sonography and color-flow sonography. VESSELS IMAGED: Common Femoral Vein Deep Femoral Vein Greater Saphenous Vein * Femoral Vein Popliteal Vein Small Saphenous Vein * Proximal Calf Veins (* superficial vessels) Left Leg: no evidence of DVT IMPRESSION: Grayscale, color doppler, spectral doppler imaging performed of the deep veins of the lo wer extremities. There is normal flow, compressibility, vascular waveforms.
[2022-01-17] MEDS ORDERED: ACET/COD 300 MG/30 MG STARTER PACK 6 TAB BTL PO STA (10:23)
== END 2022-01-17 10:44 | disposition home or self-care (01) ==
LOC: EC 08:52
DX: M54.16 Radiculopathy, lumbar region (principal); J45.909 Unspecified asthma, uncomplicated; K21.9 Gastro-esophageal reflux disease without esophagitis; I10 Essential (primary) hypertension; F32.A Depression, unspecified; F17.200 Nicotine dependence, unspecified, uncomplicated; F12.90 Cannabis use, unspecified, uncomplicated; Z88.2 Allergy status to sulfonamides; Z79.899 Other long term (current) drug therapy
CPT/HCPCS: 99283

== ENCOUNTER 2022-03-12 21:27 | Emergency (ER) | payer MEDICARE, OTHER ==
[2022-03-12 21:54] VITALS: BP 171/103; PULSE 100; RESP 16; TEMP 98.2
--- NOTE | 2022-03-12 22:46 | XR ---
EXAMINATION TYPE: XR foot complete RT DATE OF EXAM: 03/12/2022 COMPARISON: NONE HISTORY: Pain TECHNIQUE: 3 views FINDINGS: Metatarsals show some spurring between the third and fourth proximal metatarsals consistent with old injury. There is Achilles calcaneal spurring. There is some spurring of the anterior malle olus. There is nondisplaced fracture of the head of the proximal phalanx of the big toe. Fracture line exte nds to the articular surface. IMPRESSION: Acute fracture of the big toe as above. Evidence of old injury. Degenerative spurring of the calcaneus.
[2022-03-12] MEDS ORDERED: IBUPROFEN 600 MG TAB PO STA (22:58)
[2022-03-12] MEDS ORDERED: ACETAMINOPHEN TAB 325 MG TAB PO STA (22:58)
--- NOTE | 2022-03-12 23:00 | ED ---
Lower Extremity Injury HPI - General Chief Complaint: Extremity Injury, Lower Stated Complaint: toe injury Time Seen by Provider: 03/12/22 22:40 Source: patient, RN notes reviewed, old records reviewed Mode of arrival: ambulatory Limitations: no limitations - History of Present Illness Initial Comments: Patient presents ambulatory with complaints of right great toe pain after tripping this morning around 9:00. Increased pain and swelling. No other injuries. MD Complaint: other (right great toe) -: hour(s) (12) Severity scale (1-10): 8 Improves With: immobilization Worsens With: movement, palpation Context: other (trip) - Related Data Home Medications Medication Instructions Recorded Confirmed Gabapentin [Neurontin] 200 mg PO BID 01/17/22 01/17/22 Ibuprofen [Motrin] 600 mg PO Q6HR PRN 01/17/22 01/17/22 Previous Rx's Medication Instructions Recorded lisinopriL [Prinivil] 40 mg PO DAILY 7 Days #7 tab 08/14/21 predniSONE 50 mg PO DAILY #5 tab 01/17/22 Ibuprofen [Motrin] 600 mg PO Q8HR PRN #30 tab 03/12/22 Allergies Allergy/AdvReac Type Severity Reaction Status Date / Time Sulfa (Sulfonamide Allergy Rash/Hives Verified 01/17/22 10:00 Antibiotics) Review of Systems ROS Statement: Those systems with pertinent positive or pertinent negative responses have been documented in the HPI. ROS Other: All systems not noted in ROS Statement are negative. Past Medical History Past Medical History: Asthma, GERD/Reflux, Hypertension Additional Past Medical History / Comment(s): frequent headache, "back pain", ovarian cysts. History of Any Multi-Drug Resistant Organisms: MRSA Date of last positivie culture/infection: 2012 MDRO Source:: Right thigh Past Surgical History: Tonsillectomy Additional Past Surgical History / Comment(s): removal of MRSA Past Anesthesia/Blood Transfusion Reactions: No Reported Reaction Past Psychological History: Depression Smoking Status: Current every day smoker Past Alcohol Use History: Occasional Past Drug Use History: Marijuana - Past Family History Mother Family Medical History: Cancer Additional Family Medical History / Comment(s): Mother had breast cancer at Age 38. To maternal aunts had breast cancer. A maternal aunt had throat cancer. Maternal uncle had prostate cancer. General Exam Limitations: no limitations General appearance: alert, in no apparent distress Respiratory exam: Absent: respiratory distress, accessory muscle use Cardiovascular Exam: Present: regular rate Right Ankle exam: Present: normal inspection, full ROM. Absent: tenderness, swelling Foot/Toe exam: Present: full ROM, tenderness (great toe ), swelling (Tenderness, swelling and bruising noted to the great toe), ecchymosis (great toe). Absent: calcaneal tenderness, tenderness at base of 5th metatarsal Neurovascular tendon exam: Present: no vascular compromise. Absent: abnormal cap refill, extremity cold to touch, pallor, foot drop Neurological exam: Present: alert, oriented X3, normal gait (limited by pain) Psychiatric exam: Present: normal affect, normal mood Skin exam: Present: warm, dry, normal color. Absent: cyanosis, diaphoretic, petechiae, pallor Course Vital Signs 03/12/22 21:52 Temperature 98.2 F Pulse Rate 100 Respiratory 16 Rate Blood Pressure 171/103 O2 Sat by Pulse 98 Oximetry Medical Decision Making - Medical Decision Making X-ray of right foot shows an acute nondisplaced fracture of the head of the proximal phalanx of the big toe. Fracture line extends to the articular surface. Metatarsal shows spurring third fourth proximal metatarsals consistent with old injury. Patient does have good sensation and no midfoot pain. No pain along the fifth metatarsal. No ankle pain. Pedal pulses are present. She is able to ambulate. She was given Motrin and Tylenol, placed in a post op shoe and directed to follow up with orthopedics this week. Rest ice elevate and return to the emergency room with any new or concerning symptoms. Case discussed Dr. Soriano Disposition Clinical Impression: Toe fracture, right Disposition: HOME SELF-CARE Condition: Good Instructions (If sedation given, give patient instructions): Toe Fracture (ED) Additional Instructions: Rest, ice, elevate and use ortho shoe to prevent flexion of the toe. Tylenol and/or Motrin as needed for pain or discomfort. Follow-up with orthopedics this week. Prescriptions: Ibuprofen [Motrin] 600 mg PO Q8HR PRN #30 tab PRN Reason: Pain Is patient prescribed a controlled substance at d/c from ED?: No Referrals: Ervin Schwarz [STAFF PHYSICIAN] - 1-2 days Shan Lopez MD [Medical Doctor] - 1-2 days Time of Disposition: 23:00
== END 2022-03-12 23:20 | disposition home or self-care (01) ==
LOC: EC 21:27
DX: S92.401A Displaced unspecified fracture of right great toe, initial encounter for closed fracture (principal); I10 Essential (primary) hypertension; J45.909 Unspecified asthma, uncomplicated; K21.9 Gastro-esophageal reflux disease without esophagitis; F32.A Depression, unspecified; F17.200 Nicotine dependence, unspecified, uncomplicated; F12.90 Cannabis use, unspecified, uncomplicated; W01.0XXA Fall on same level from slipping, tripping and stumbling without subsequent striking against object, initial encounter; Z88.2 Allergy status to sulfonamides; Z79.811 Long term (current) use of aromatase inhibitors; Z79.899 Other long term (current) drug therapy
CPT/HCPCS: 99283

== ENCOUNTER 2022-05-01 17:53 | Emergency (ER) | payer MEDICARE, OTHER ==
--- NOTE | 2022-05-01 18:55 | XR ---
EXAMINATION TYPE XR Hip LT and AP Pelvis DATE OF EXAM: 05/01/2022 6:40 PM INDICATION: Patient age:Female; 37 years old; Reason for study: PAIN NO TRUAMA HX HIP FRACTURE; PHH. COMPARISON: None. TECHNIQUE: The left hip was examined in the frontal and lateral projections and a AP pelvis. FINDINGS: There is hypertrophy of the acetabulum bilaterally with osteophyte formation which override the femoral heads. No evidence of acute fracture. Osteophyte formation of the femoral heads. Degener ation changes of the lower spine and sacroiliac joints. IMPRESSION: Bilateral femoral acetabular impingement, pincher type, with associated advanced degeneration for the hips. Orthopedic consultation recommended.
[2022-05-01] MEDS ORDERED: predniSONE 50 MG TAB PO STA (19:55)
[2022-05-01] MEDS ORDERED: ACETAMINOPHEN TAB 500 MG TAB PO STA (19:55)
--- NOTE | 2022-05-01 19:57 | ED ---
Lower Extremity Injury HPI - General Chief Complaint: Extremity Injury, Lower Stated Complaint: hip pain Time Seen by Provider: 05/01/22 19:44 Source: patient, RN notes reviewed Mode of arrival: ambulatory Limitations: no limitations - History of Present Illness Initial Comments: This is a pleasant 37-year-old female presents to emergency department com plaining of bilateral hip pain. Patient states that she has a history of rheumatoid arthritis and previously had a hip fracture. Patient states that this morning she got up and hips were stiffer than usual. Left greater than right. Denying any fever. denies any injury. ,. No headache, no fever or chills, no changes in vision or hearing, no sore throat or difficulty with speech, no neck pain, no chest pain or shortness of breath, no abdominal pain, no nausea or vomiting, no changes in urination or bowel movements, no numbness or tingling,, no skin rashes or lesions. No immunosuppression, no diabetes Past medical, surgical, social, and family history reviewed. - Related Data Home Medications Medication Instructions Recorded Confirmed Gabapentin [Neurontin] 200 mg PO BID 01/17/22 01/17/22 Ibuprofen [Motrin] 600 mg PO Q6HR PRN 01/17/22 01/17/22 Previous Rx's Medication Instructions Recorded lisinopriL [Prinivil] 40 mg PO DAILY 7 Days #7 tab 08/14/21 predniSONE 50 mg PO DAILY #5 tab 01/17/22 Ibuprofen [Motrin] 600 mg PO Q8HR PRN #30 tab 03/12/22 Acetaminophen Tab [Tylenol Tab] 500 mg PO Q6H PRN #24 tablet 05/01/22 Cyclobenzaprine [Flexeril] 10 mg PO TID PRN #20 tab 05/01/22 methylPREDNISolone Dose Pack 4 mg PO DIRECTED #21 tab 05/01/22 [Medrol Dose Pack] Allergies Allergy/AdvReac Type Severity Reaction Status Date / Time Sulfa (Sulfonamide Allergy Rash/Hives Verified 01/17/22 10:00 Antibiotics) Review of Systems ROS Statement: Those systems with pertinent positive or pertinent negative responses have been documented in the HPI. ROS Other: All systems not noted in ROS Statement are negative. Past Medical History Past Medical History: Asthma, GERD/Reflux, Hypertension Additional Past Medical History / Comment(s): frequent headache, "back pain", ovarian cysts. History of Any Multi-Drug Resistant Organisms: MRSA Date of last positivie culture/infection: 2012 MDRO Source:: Right thigh Past Surgical History: Tonsillectomy Additional Past Surgical History / Comment(s): removal of MRSA Past Anesthesia/Blood Transfusion Reactions: No Reported Reaction Past Psychological History: Depression Smoking Status: Current every day smoker Past Alcohol Use History: Occasional Past Drug Use History: Marijuana - Past Family History Mother Family Medical History: Cancer Additional Family Medical History / Comment(s): Mother had breast cancer at Age 38. To maternal aunts had breast cancer. A maternal aunt had throat cancer. Maternal uncle had prostate cancer. General Exam Limitations: no limitations General appearance: alert, in no apparent distress Head exam: Present: atraumatic, normocephalic, normal inspection Eye exam: Present: normal appearance, PERRL, EOMI. Absent: scleral icterus, conjunctival injection, periorbital swelling ENT exam: Present: normal exam, mucous membranes moist Neck exam: Present: normal inspection, full ROM. Absent: tenderness, meningismus, lymphadenopathy Respiratory exam: Present: normal lung sounds bilaterally. Absent: respiratory distress, wheezes, rales, rhonchi, stridor Cardiovascular Exam: Present: regular rate, normal rhythm, normal heart sounds. Absent: systolic murmur, diastolic murmur, rubs, gallop, clicks GI/Abdominal exam: Present: soft, normal bowel sounds. Absent: distended, tenderness, guarding, rebound, rigid Extremities exam: Present: normal inspection, full ROM (With discomfort), normal capillary refill, other (No erythema, no rash or lesion, no crepitus, no break in skin integrity, distal sensation intact). Absent: tenderness, pedal edema, joint swelling, calf tenderness Back exam: Present: normal inspection. Absent: rash noted Neurological exam: Present: alert, oriented X3, CN II-XII intact, normal gait, motor sensory deficit Psychiatric exam: Present: normal affect, normal mood Skin exam: Present: warm, dry, intact, normal color. Absent: rash Course Vital Signs 05/01/22 18:24 Temperature 97 F L Pulse Rate 78 Respiratory 16 Rate Blood Pressure 150/93 O2 Sat by Pulse 99 Oximetry Medical Decision Making - Medical Decision Making No evidence of cauda equina syndrome. Differential diagnosis includes osteoarthritis, rheumatoid arthritis, hip strain, soft tissue injury. Rheumatoid arthritis flare. Patient displays no evidence of infectious process. Patient mildly hypertensive. Other vital signs are stable. Plain film x-ray of the bilateral hips independently interpreted by me reveal bilateral hip arthritic change. I did review the radiologist's interpretation. There was no evidence of acute fracture.Going to treat the patient for flare of rheumatoid arthritis. Patient had no other significant joint arthralgia. Patient previously has been assessed by Dr. Buchanan. We'll use a Medrol Dosepak. I also suggested acetaminophen and Flexeril. Plan discussed with the patient. Patient concurs. All questions answered. Patient was told to return to the ER for any signs or symptoms worsen. Told to return immediately if any other problems arise. All questions answered. Treatment plan discussed. Patient in agreement Every effort has been made to ensure accuracy of this dictation. However, due to the limitations of electronic medical records and dictation devices, errors in charting still occur. Resident Physician In Radiology Dr. 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 Return to the ER immediately if any symptoms worsen, new symptoms arise, or any other problems develop. Prescriptions: Cyclobenzaprine [Flexeril] 10 mg PO TID PRN #20 tab PRN Reason: Spasms methylPREDNISolone Dose Pack [Medrol Dose Pack] 4 mg PO DIRECTED #21 tab Acetaminophen Tab [Tylenol Tab] 500 mg PO Q6H PRN #24 tablet PRN Reason: Pain Is patient prescribed a controlled substance at d/c from ED?: No Referrals: Marilynn Buchanan MD [STAFF PHYSICIAN] - As Soon As Possible Time of Disposition: 19:57
[2022-05-01 20:18] VITALS: BP 132/85; PULSE 74; RESP 18; TEMP 97.9
== END 2022-05-01 20:17 | disposition home or self-care (01) ==
LOC: EC 17:53
DX: M25.852 Other specified joint disorders, left hip (principal); M25.851 Other specified joint disorders, right hip; M06.9 Rheumatoid arthritis, unspecified; J45.909 Unspecified asthma, uncomplicated; I10 Essential (primary) hypertension; F17.200 Nicotine dependence, unspecified, uncomplicated; F12.90 Cannabis use, unspecified, uncomplicated; Z88.2 Allergy status to sulfonamides; Z79.899 Other long term (current) drug therapy
CPT/HCPCS: 73502; 99283; J7512

== ENCOUNTER 2022-12-27 18:26 | Emergency (ER) | payer MEDICARE, OTHER ==
[2022-12-27 18:40] VITALS: TEMP 98.1
[2022-12-27] MEDS ORDERED: KETOROLAC 15 MG/ML 1 ML VIAL IM STA (19:48)
--- NOTE | 2022-12-27 20:29 | ED ---
General Adult HPI - General Chief complaint: Extremity Injury, Lower Stated complaint: LEFT KNEE PAIN/SWELLING/BURNING Time Seen by Provider: 12/27/22 19:41 Source: patient Mode of arrival: ambulatory Limitations: no limitations - History of Present Illness Initial comments: Patient is a 37-year-old female who presents to the emergency department for lef t knee pain. Patient states she was walking yesterday and stepped with her left lower extremity harder than usual causing pain in her left knee. Patient has pain and mild swelling to the outer left knee. Patient states is difficult to walk due to pain. Denies numbness and tingling. Denies calf pain and swelling. No fever or chills. No previous injury to the left knee.. - Related Data Home Medications Medication Instructions Recorded Confirmed Gabapentin [Neurontin] 200 mg PO BID 01/17/22 01/17/22 Ibuprofen [Motrin] 600 mg PO Q6HR PRN 01/17/22 01/17/22 Previous Rx's Medication Instructions Recorded lisinopriL [Prinivil] 40 mg PO DAILY 7 Days #7 tab 08/14/21 predniSONE 50 mg PO DAILY #5 tab 01/17/22 Ibuprofen [Motrin] 600 mg PO Q8HR PRN #30 tab 03/12/22 Acetaminophen Tab [Tylenol Tab] 500 mg PO Q6H PRN #24 tablet 05/01/22 Cyclobenzaprine [Flexeril] 10 mg PO TID PRN #20 tab 05/01/22 methylPREDNISolone Dose Pack 4 mg PO DIRECTED #21 tab 05/01/22 [Medrol Dose Pack] Ondansetron Odt [Zofran Odt] 4 mg PO Q8HR PRN 2 Days #6 tab 07/03/22 Pantoprazole [Protonix] 40 mg PO DAILY 7 Days #7 tab 07/03/22 Ibuprofen [Motrin] 800 mg PO Q8HR PRN #30 tab 12/27/22 Allergies Allergy/AdvReac Type Severity Reaction Status Date / Time Sulfa (Sulfonamide Allergy Rash/Hives Verified 07/03/22 16:59 Antibiotics) Review of Systems ROS Statement: Those systems with pertinent positive or pertinent negative responses have been documented in the HPI. ROS Other: All systems not noted in ROS Statement are negative. Past Medical History Past Medical History: Asthma, GERD/Reflux, Hypertension Additional Past Medical History / Comment(s): frequent headache, "back pain", ovarian cysts. History of Any Multi-Drug Resistant Organisms: MRSA Date of last positivie culture/infection: 2012 MDRO Source:: Right thigh Past Surgical History: Tonsillectomy Additional Past Surgical History / Comment(s): removal of MRSA Past Anesthesia/Blood Transfusion Reactions: No Reported Reaction Past Psychological History: Depression Smoking Status: Current every day smoker Past Alcohol Use History: Occasional Past Drug Use History: Marijuana - Past Family History Mother Family Medical History: Cancer Additional Family Medical History / Comment(s): Mother had breast cancer at Age 38. To maternal aunts had breast cancer. A maternal aunt had throat cancer. Maternal uncle had prostate cancer. General Exam Limitations: no limitations General appearance: alert Respiratory exam: Present: normal lung sounds bilaterally. Absent: respiratory distress, wheezes, rales, rhonchi, stridor Cardiovascular Exam: Present: regular rate, normal rhythm, normal heart sounds. Absent: systolic murmur, diastolic murmur, rubs, gallop, clicks Left Upper Leg exam: Present: normal inspection, full ROM. Absent: tenderness, swelling Knee exam: Present: full ROM, tenderness (lateral), swelling (mild lateral knee), pain/laxity with valgus. Absent: ecchymosis, deformity, crepitus, effusion, pain/laxity with varus Lower Leg exam: Present: normal inspection, full ROM. Absent: tenderness, swelling, Homans' sign Neurovascular tendon exam: Present: no vascular compromise Neurological exam: Present: alert Psychiatric exam: Present: normal affect, normal mood Course Vital Signs 12/27/22 12/27/22 18:37 21:39 Temperature 98.1 F 98.1 F Pulse Rate 78 76 Respiratory 20 16 Rate Blood Pressure 156/83 142/80 O2 Sat by Pulse 98 99 Oximetry Medical Decision Making - Medical Decision Making Was pt. sent in by a medical professional or institution (, PA, RESOURCE DIRECTOR, urgent care, hospital, or residential...) When possible be specific @ -No Did you speak to anyone other than the patient for history (EMS, parent, family, police, friend...)? What history was obtained from this source @ -No Did you review nursing and triage notes (agree or disagree)? Why? @ -I reviewed and agree with nursing and triage notes Were old charts reviewed (outside hosp., previous admission, EMS record, old EKG, old radiological studies, urgent care reports/EKG's, residential records)? Report findings @ -No old charts were reviewed Differential Diagnosis (chest pain, altered mental status, abdominal pain women, abdominal pain men, vaginal bleeding, weakness, fever, dyspnea, syncope, headache, dizziness, GI bleed, back pain, seizure, CVA, palpatations, mental health)? @ -knee sprain, knee fracture, osteoarthritis EKG interpreted by me (3pts min.). @ -As above X-rays interpreted by me (1pt min.). @ -No acute fracture or dislocation. No effusion CT interpreted by me (1pt min.). @ -None done U/S interpreted by me (1pt. min.). @ -None done What testing was considered but not performed or refused? (CT, X-rays, U/S, labs)? Why? @ -None What meds were considered but not given or refused? Why? @ -None Did you discuss the management of the patient with other professionals (professionals i.e. , PA, RESOURCE DIRECTOR, lab, RT, psych nurse, social media intern, academic dean, teacher, information systems security officer, continuous pillowcase cutter)? Give summary @ -No Was smoking cessation discussed for >3mins.? @ -No Was critical care preformed (if so, how long)? @ -No Were there social determinants of health that impacted care today? How? (Homelessness, low income, unemployed, alcoholism, drug addiction, transportation, low edu. Level, literacy, decrease access to med. care, custodial, rehab)? @ -No Was there de-escalation of care discussed even if they declined (Discuss DNR or withdrawal of care, Hospice)? DNR status @ -No What co-morbidities impacted this encounter? (DM, HTN, Smoking, COPD, CAD, Cancer, CVA, ARF, Chemo, Hep., AIDS, mental health diagnosis, sleep apnea, morbid obesity)? @ -None Was patient admitted / discharged? Hospital course, mention meds given and route, prescriptions, significant lab abnormalities, going to OR and other pert inent info. @ -Discharged patient placed in immobilizer and given crutches for suspected knee sprain. She will ice and elevate the injury. She will bear weight as tolerated. Follow-up with orthopedic coder Undiagnosed new problem with uncertain prognosis? @ -No Drug Therapy requiring intensive monitoring for toxicity (Heparin, Nitro, Insulin, Cardizem)? @ -No Were any procedures done? @ -No Diagnosis/symptom? @ -left knee sprain Acute, or Chronic, or Acute on Chronic? @ -acute Uncomplicated (without systemic symptoms) or Complicated (systemic symptoms)? @ -uncomplicated Side effects of treatment? @ -No Exacerbation, Progression, or Severe Exacerbation? @ -No Poses a threat to life or bodily function? How? (Chest pain, USA, MD, pneumonia, PE, COPD, DKA, ARF, appy, cholecystitis, CVA, Diverticulitis, Homicidal, Suicidal, threat to staff... and all critical care pts) @ -No Dr. Loyola is my attending Disposition Clinical Impression: Left knee sprain Disposition: HOME SELF-CARE Condition: Good Instructions (If sedation given, give patient instructions): Knee Sprain (ED) Additional Instructions: Alternate Tylenol and Motrin every 3-4 hours for pain keep the immobilizer on and use crutches bare weight as follow-up with orthopedic coder in 1-2 days. Return to the emergency department if you experience new, concerning, or worsening symptoms. pain tolerates. Prescriptions: Ibuprofen [Motrin] 800 mg PO Q8HR PRN #30 tab PRN Reason: Pain Is patient prescribed a controlled substance at d/c from ED?: No Referrals: None,Stated [Primary Care Provider] - 1-2 days Tito Castillo MD [STAFF PHYSICIAN] - 1-2 days
--- NOTE | 2022-12-27 20:42 | XR ---
PROCEDURE: XR knee complete LT - 3V DATE AND TIME: 12/27/2022 8:06 PM CLINICAL INDICATION: Pain; injury TECHNIQUE: Department protocol COMPARISON: 12/20/2021 FINDINGS: There is no fracture or malalignment. The soft tissues are unremarkable. IMPRESSION: NO ACUTE PROCESS.
[2022-12-27 21:43] VITALS: BP 142/80; PULSE 76; RESP 16
== END 2022-12-27 21:43 | disposition home or self-care (01) ==
LOC: EC 18:26
DX: S83.92XA Sprain of unspecified site of left knee, initial encounter (principal); J45.909 Unspecified asthma, uncomplicated; I10 Essential (primary) hypertension; F17.200 Nicotine dependence, unspecified, uncomplicated; F12.90 Cannabis use, unspecified, uncomplicated; Z86.59 Personal history of other mental and behavioral disorders; Z88.2 Allergy status to sulfonamides; X58.XXXA Exposure to other specified factors, initial encounter; Y93.01 Activity, walking, marching and hiking
CPT/HCPCS: 73562; 99283; 96372; J1885

== ENCOUNTER 2023-03-16 17:45 | Emergency (ER) | payer MEDICARE, OTHER ==
[2023-03-16 18:10] VITALS: TEMP 98.7
--- NOTE | 2023-03-16 18:40 | ED ---
General Adult HPI - General Chief complaint: Skin/Abscess/Foreign Body Stated complaint: lump under left breast Time Seen by Provider: 03/16/23 18:22 Source: patient, RN notes reviewed Mode of arrival: ambulatory Limitations: no limitations - History of Present Illness Initial comments: 37-year-old female presents to the emergency department chief complaint swelling under her breast 2-3 days. She states that she feels it is getting worse. She states that pain is associated with that and comes and goes without any aggravating or alleviating factors. Past medical history includes hypertension. She denies fever, chills, redness to the area, abdominal pain, vomiting, diarrhea. She denies any recent injury to the area. - Related Data Home Medications Medication Instructions Recorded Confirmed Gabapentin [Neurontin] 200 mg PO BID 01/17/22 01/17/22 Ibuprofen [Motrin] 600 mg PO Q6HR PRN 01/17/22 01/17/22 Previous Rx's Medication Instructions Recorded lisinopriL [Prinivil] 40 mg PO DAILY 7 Days #7 tab 08/14/21 predniSONE 50 mg PO DAILY #5 tab 01/17/22 Ibuprofen [Motrin] 600 mg PO Q8HR PRN #30 tab 03/12/22 Acetaminophen Tab [Tylenol Tab] 500 mg PO Q6H PRN #24 tablet 05/01/22 Cyclobenzaprine [Flexeril] 10 mg PO TID PRN #20 tab 05/01/22 methylPREDNISolone Dose Pack 4 mg PO DIRECTED #21 tab 05/01/22 [Medrol Dose Pack] Ondansetron Odt [Zofran Odt] 4 mg PO Q8HR PRN 2 Days #6 tab 07/03/22 Pantoprazole [Protonix] 40 mg PO DAILY 7 Days #7 tab 07/03/22 Ibuprofen [Motrin] 800 mg PO Q8HR PRN #30 tab 12/27/22 lisinopriL 40 mg PO DAILY #90 tab 03/16/23 Allergies Allergy/AdvReac Type Severity Reaction Status Date / Time Sulfa (Sulfonamide Allergy Rash/Hives Verified 07/03/22 16:59 Antibiotics) Review of Systems ROS Statement: Those systems with pertinent positive or pertinent negative responses have been documented in the HPI. ROS Other: All systems not noted in ROS Statement are negative. Past Medical History Past Medical History: Asthma, GERD/Reflux, Hypertension Additional Past Medical History / Comment(s): frequent headache, "back pain", ovarian cysts. History of Any Multi-Drug Resistant Organisms: MRSA Date of last positivie culture/infection: 2012 MDRO Source:: Right thigh Past Surgical History: Tonsillectomy Additional Past Surgical History / Comment(s): removal of MRSA Past Anesthesia/Blood Transfusion Reactions: No Reported Reaction Past Psychological History: Depression Smoking Status: Current every day smoker Past Alcohol Use History: Occasional Past Drug Use History: Marijuana - Past Family History Mother Family Medical History: Cancer Additional Family Medical History / Comment(s): Mother had breast cancer at Age 38. To maternal aunts had breast cancer. A maternal aunt had throat cancer. Maternal uncle had prostate cancer. General Exam Limitations: no limitations General appearance: alert, in no apparent distress Head exam: Present: atraumatic, normocephalic, normal inspection Eye exam: Present: normal appearance, PERRL, EOMI. Absent: scleral icterus, conjunctival injection, periorbital swelling ENT exam: Present: normal exam, mucous membranes moist Respiratory exam: Present: normal lung sounds bilaterally, chest wall tenderness (left lower rib cage swelling with areas of tenderness to palpation). Absent: respiratory distress, wheezes, rales, rhonchi, stridor Cardiovascular Exam: Present: regular rate, normal rhythm, normal heart sounds. Absent: systolic murmur, diastolic murmur, rubs, gallop, clicks GI/Abdominal exam: Present: soft, normal bowel sounds. Absent: distended, tenderness, guarding, rebound, rigid Extremities exam: Present: normal inspection, full ROM, normal capillary refill. Absent: tenderness, pedal edema, joint swelling, calf tenderness Neurological exam: Present: alert, oriented X3 Psychiatric exam: Present: normal affect, normal mood Skin exam: Present: warm, dry, intact, normal color, other (swelling over the left inferior rib cage, nonerythematous, nonfluctuant.). Absent: rash Course Vital Signs 03/16/23 03/16/23 18:02 20:11 Temperature 98.7 F Pulse Rate 80 79 Respiratory 16 18 Rate Blood Pressure 210/116 145/95 O2 Sat by Pulse 98 98 Oximetry Medical Decision Making - Medical Decision Making Was pt. sent in by a medical professional or institution (, PA, CHAIN REPAIRER, urgent care, hospital, or [facility]...) When possible be specific @ -No Did you speak to anyone other than the patient for history (EMS, parent, family, police, friend...)? What history was obtained from this source @ -No Did you review nursing and triage notes (agree or disagree)? Why? @ -I reviewed and agree with nursing and triage notes Were old charts reviewed (outside hosp., previous admission, EMS record, old EKG, old radiological studies, urgent care reports/EKG's, [facility] records)? Report findings @ -No old charts were reviewed Differential Diagnosis (chest pain, altered mental status, abdominal pain women, abdominal pain men, vaginal bleeding, weakness, fever, dyspnea, syncope, headache, dizziness, GI bleed, back pain, seizure, CVA, palpatations, mental health, musculoskeletal)? @ -Abscess, lipoma, EKG interpreted by me (3pts min.). @ -EKG at 1937 shows sinus rhythm rate 76, OK 207, QRS 98, QTQTc [id number] X-rays interpreted by me (1pt min.). @ -None done CT interpreted by me (1pt min.). @ -None done U/S interpreted by me (1pt. min.). @ -Us shows no evidence of soft tissue abnormality What testing was considered but not performed or refused? (CT, X-rays, U/S, labs)? Why? @ -None What meds were considered but not given or refused? Why? @ -None Did you discuss the management of the patient with other professionals (professionals i.e. , PA, CHAIN REPAIRER, lab, RT, psych nurse, 7th grade social studies teacher, pumper hand, teacher, sea air land officer, renal case manager)? Give summary @ -No Was smoking cessation discussed for >3mins.? @ -No Was critical care preformed (if so, how long)? @ -No Were there social determinants of health that impacted care today? How? (Homelessness, low income, unemployed, alcoholism, drug addiction, transportation, low edu. Level, literacy, decrease access to med. care, penitentiary, rehab)? @ -No Was there de-escalation of care discussed even if they declined (Discuss DNR or withdrawal of care, Hospice)? DNR status @ -No What co-morbidities impacted this encounter? (DM, HTN, Smoking, COPD, CAD, Cancer, CVA, ARF, Chemo, Hep., AIDS, mental health diagnosis, sleep apnea, morbid obesity)? @ -None Was patient admitted / discharged? Hospital course, mention meds given and route, prescriptions, significant lab abnormalities, going to OR and other perti ne info. @ -Discharged. Patient presented to emergency department chief complaint of left-sided abdominal "swelling." she states that it has been there for two days. This appears to be over the rib cage. She does have mild tenderness over the rib cage but no abdominal pain. Denies nausea, vomiting, fever, chills. Ultrasound soft tissue was obtained which shows no significant abnormality. Patient is hypertensive in the ED. She states that she is prescribed lisinopril 40 mg but has not taken it because she ran out. Patient was given a dose in the ED and a prescription was written for short-term of the medication. She is advised to follow-up with her primary care provider for further medication management. Patient stable at time of discharge. Case discussed with Dr. Loyola Undiagnosed new problem with uncertain prognosis? @ -No Drug Therapy requiring intensive monitoring for toxicity (Heparin, Nitro, I nsulin, Cardizem)? @ -No Were any procedures done? @ -No Diagnosis/symptom? @ -lipomaa Acute, or Chronic, or Acute on Chronic? @ acute] Uncomplicated (without systemic symptoms) or Complicated (systemic symptoms)? @ -uncomplicated Side effects of treatment? @ -No Exacerbation, Progression, or Severe Exacerbation? @ -No Poses a threat to life or bodily function? How? (Chest pain, USA, IA, pneumonia, PE, COPD, DKA, ARF, appy, cholecystitis, CVA, Diverticulitis, Homicidal, Suicidal, threat to staff... and all critical care pts) @ -No - Lab Data Result diagrams: 03/16/23 19:00 03/16/23 19:00 Lab Results 03/16/23 03/16/23 Range/Units 19:00 19:00 WBC 10.4 (3.8-10.6) k/uL RBC 5.05 (3.80-5.40) m/uL Hgb 13.7 (11.4-16.0) gm/dL Hct 41.3 (34.0-46.0) % MCV 81.7 (80.0-100.0) fL MCH 27.2 (25.0-35.0) pg MCHC 33.3 (31.0-37.0) g/dL RDW 15.2 (11.5-15.5) % Plt Count 282 (150-450) k/uL MPV 7.6 Neutrophils % 65 % Lymphocytes % 23 % Monocytes % 6 % Eosinophils % 4 % Basophils % 0 % Neutrophils # 6.8 (1.3-7.7) k/uL Lymphocytes # 2.4 (1.0-4.8) k/uL Monocytes # 0.6 (0-1.0) k/uL Eosinophils # 0.5 (0-0.7) k/uL Basophils # 0.0 (0-0.2) k/uL Sodium 138 (137-145) mmol/L Potassium 3.9 (3.5-5.1) mmol/L Chloride 105 (98-107) mmol/L Carbon Dioxide 19 L (22-30) mmol/L Anion Gap 14 mmol/L BUN 12 (7-17) mg/dL Creatinine 0.87 (0.52-1.04) mg/dL Est GFR (CKD-EPI)AfAm >90 (>60 ml/min/1.73 sqM) Est GFR (CKD-EPI)NonAf 86 (>60 ml/min/1.73 sqM) Glucose 101 H (74-99) mg/dL Calcium 9.5 (8.4-10.2) mg/dL Total Bilirubin 0.3 (0.2-1.3) mg/dL AST 19 (14-36) U/L ALT 19 (4-34) U/L Alkaline Phosphatase 100 (38-126) U/L Total Protein 7.1 (6.3-8.2) g/dL Albumin 4.2 (3.5-5.0) g/dL Disposition Clinical Impression: Lipoma Disposition: HOME SELF-CARE Condition: Stable Instructions (If sedation given, give patient instructions): Hypertension (ED), Soft Tissue Mass (ED) Additional Instructions: Follow-up with your primary care provider. Return to emergency department for new or worsening symptoms. Prescriptions: lisinopriL 40 mg PO DAILY #90 tab Is patient prescribed a controlled substance at d/c from ED?: No Referrals: None,Stated [Primary Care Provider] - 1-2 days
[2023-03-16 19:11] LABS: Basophils % (A) 0 %; Eosinophils # (A) 0.5 k/uL (0-0.7); Eosinophils % (A) 4 %; HCT 41.3 % (34.0-46.0); HGB 13.7 gm/dL (11.4-16.0); Lymphocytes # (A) 2.4 k/uL (1.0-4.8); Lymphocytes % (A) 23 %; MCH 27.2 pg (25.0-35.0); MCHC 33.3 g/dL (31.0-37.0); MCV 81.7 fL (80.0-100.0); Mean Platelet Volume 7.6; Monocytes # (A) 0.6 k/uL (0-1.0); Monocytes % (A) 6 %; Neutrophils # (A) 6.8 k/uL (1.3-7.7); Neutrophils % (A) 65 %; Platelet Count 282 k/uL (150-450); RBC 5.05 m/uL (3.80-5.40); RDW 15.2 % (11.5-15.5); WBC 10.4 k/uL (3.8-10.6)
[2023-03-16 19:21] LABS: ALT 19 U/L (4-34); AST 19 U/L (14-36); African American GFR (CKD) >90 (>60 ml/min/1.73 sqM); Albumin 4.2 g/dL (3.5-5.0); Alkaline Phosphatase 100 U/L (38-126); Anion Gap 14 mmol/L; Blood Urea Nitrogen 12 mg/dL (7-17); Calcium 9.5 mg/dL (8.4-10.2); Carbon Dioxide 19 mmol/L (22-30); Chloride 105 mmol/L (98-107); Glucose 101 mg/dL (74-99); Non-African American GFR(CKD) 86 (>60 ml/min/1.73 sqM); Potassium 3.9 mmol/L (3.5-5.1); Sodium 138 mmol/L (137-145); Total Bilirubin 0.3 mg/dL (0.2-1.3); Total Protein 7.1 g/dL (6.3-8.2)
--- NOTE | 2023-03-16 19:21 | US ---
EXAMINATION TYPE: US mass soft tissue chest/back DATE OF EXAM: 03/16/2023 COMPARISON: NONE CLINICAL INDICATION: Female, 37 years old with history of under left breast, swelling; Patient states she feels a soft palpable area LUQ x couple days No abnormality seen at patient's area of concern IMPRESSION: 1. No suspicious soft tissue abnormality at the level of the patient's swelling left upper quadrant
[2023-03-16] MEDS ORDERED: lisinopriL 20 MG TAB PO STA ×2 (19:53→20:03)
[2023-03-16 20:22] VITALS: BP 145/95; PULSE 79; RESP 18
== END 2023-03-16 20:53 | disposition home or self-care (01) ==
LOC: EC 17:45
DX: D17.9 Benign lipomatous neoplasm, unspecified (principal); I10 Essential (primary) hypertension; J45.909 Unspecified asthma, uncomplicated; F17.200 Nicotine dependence, unspecified, uncomplicated; F12.90 Cannabis use, unspecified, uncomplicated; Z86.59 Personal history of other mental and behavioral disorders; Z88.2 Allergy status to sulfonamides
CPT/HCPCS: 36415; 80053; 85025; 93005; 99283

== ENCOUNTER → 2023-05-17 | Outpatient (CLI) | payer MEDICARE, OTHER ==
[2023-05-17 10:06] LABS: INR 0.9 (<1.2); Partial Thromboplastin Time 27.3 sec (22.0-30.0); Prothrombin Time 10.1 sec (10.0-12.5)
[2023-05-17 15:13] LABS: HCT 40.8 % (37.2-46.3); HGB 12.9 g/dL (12.0-15.0); MCH 26.4 pg (27.0-32.0); MCHC 31.6 g/dL (32.0-37.0); MCV 83.4 FL (80.0-97.0); Mean Platelet Volume 10.5 FL (9.5-12.2); NRBC Per 100 WBC 0 X 10*3/uL (0.00-0.01); Platelet Count 317 X 10*3/uL (140-440); RBC 4.89 X 10*6/uL (4.10-5.20); RDW 16.1 % (11.5-14.5); WBC 6.39 X 10*3/uL (4.50-10.00)
[2023-05-17 15:20] LABS: Blood Urea Nitrogen 8.5 mg/dL (9.0-27.0); Chloride 104 mmol/L (96-109); Glucose 93 mg/dL (70-110); Potassium 4.9 mmol/L (3.5-5.5); Sodium 140 mmol/L (135-145)
[2023-05-17 15:21] LABS: ALT 18 U/L (8-44); AST 13 U/L (13-35); Albumin 4.2 g/dL (3.8-4.9); Albumin/Globulin Ratio 1.62 Ratio (1.60-3.17); Alkaline Phosphatase 110 U/L (41-126); Calcium 9.6 mg/dL (8.7-10.3); Globulin 2.6 g/dL (1.6-3.3); Total Bilirubin <0.2 mg/dL (0.3-1.2); Total Protein 6.8 g/dL (6.2-8.2)
== END | disposition home or self-care (01) ==
LOC: LABPAT 08:08
PROVIDERS: ATTEND Orthopaedic Surgery
DX: Z01.812 Encounter for preprocedural laboratory examination (principal); M16.12 Unilateral primary osteoarthritis, left hip
CPT/HCPCS: 36415; 80053; 85027; 85610; 85730; 86850; 86900; 86901; 87070

== ENCOUNTER → 2023-05-22 | Outpatient (CLI) | payer MEDICARE, OTHER | END | disposition home or self-care (01) | LOC: LABWHC1 08:04 | PROVIDERS: ATTEND Orthopaedic Surgery | DX: M16.12 Unilateral primary osteoarthritis, left hip (principal) | CPT/HCPCS: 36415; 83036 ==

== ENCOUNTER → 2023-05-24 | Day surgery (SDC) | payer MEDICARE, OTHER ==
[~2023-05-24] MED LIST: ACETAMINOPHEN TAB 500 MG TAB PO PRN; DEXAMETHASONE SOD PHOSPHATE 10 MG/ML 1 ML VIAL IV PRN; DEXAMETHASONE SOD PHOSPHATE 4 MG/ML 1 ML VIAL IV ONE; DOCUSATE 100 MG CAP PO PRN; FAMOTIDINE 20 MG/2 ML VIAL IVP PRN; HYDROmorphone 0.5 MG/0.5 ML SYRINGE IVP PRN; KETOROLAC 15 MG/ML 1 ML VIAL IVP PRN; LACTATED RINGERS 1,000 ML IV SCH; MIDAZOLAM 2 MG/2 ML VIAL IVP ONE; ONDANSETRON 4 MG/2 ML VIAL IVP ONE; ONDANSETRON 4 MG/2 ML VIAL IVP PRN; ROPIVACAINE/EPI/CLONIDINE/KET 50 ML SYRINGE MISCELLANE PRN; TRANEXAMIC 1,000 MG/100ML-NACL 1,000 MG in SALINE 1 100ML.BAG IV PRN; TRANEXAMIC 1,000 MG/100ML-NACL 1,000 MG in SALINE 1 100ML.BAG IVPB PRN; oxyCODONE ER 10 MG TAB.ER.12H PO PRN
--- NOTE | 2023-05-24 07:27 | P.PN ---
Progress Note - Text Progress Note Date: 05/24/23 When evaluating the patient in preoperative holding there was a furuncle several centimeters from the site of the planned incision. The lesion was inflamed, erythematous with a small subcutaneous abscess. With the patient's pannus overhanging it was directly over where the incision for a direct anterior hip would be placed. Given the patient's young age and her already elevated BMI I recommended canceling her surgery and postponing until the furuncle had completely resolved. I discussed this at length with the patient and her brother. The patient was given an oral antibiotic and will follow-up in the office in 2 weeks for evaluation.
--- NOTE | 2023-05-24 07:41 | P.ANPRN ---
Procedure Note - Anesthesia - Nerve Block Performed Left Brendan Single Time Out Performed: Yes Date of Procedure: 05/24/23 Procedure Start Time: 06:59 Procedure Stop Time: 07:10 Location of Patient: PreOp Indication: Acute Post-Operative Pain, Requested by Surgeon Sedation Type: Sedate with meaningful contact maintained Preparation: Sterile Prep, Sterile Dressing Position: Supine Catheter: None Needle Types: Facet Needle Gauge: 20 Ultrasound used to visualize needle placement: Yes Ultrasound used to observe medication spread: Yes Injectate: 0.5% Ropivacaine (see comment for volume) (30 ml + decadron 4 mg) Blood Aspirated: No Pain Paresthesia on Injection Noted: No Resistance on Injection: Normal Image Stored and Saved: Yes Events: Uneventful and Well Tolerated
[2023-05-24 07:50] VITALS: RESP 16; TEMP 97.1
[2023-05-24 08:15] VITALS: BP 122/58; PULSE 56
== END | disposition home or self-care (01) ==
LOC: OR 05:31
PROVIDERS: ATTEND Orthopaedic Surgery
DX: Z53.8 Procedure and treatment not carried out for other reasons (principal); G89.18 Other acute postprocedural pain; I10 Essential (primary) hypertension; F10.90 Alcohol use, unspecified, uncomplicated; Z88.2 Allergy status to sulfonamides; Z79.899 Other long term (current) drug therapy; Z87.891 Personal history of nicotine dependence
CPT/HCPCS: 64447; J2250; J1100; J2405

== ENCOUNTER → 2023-06-20 | Outpatient (CLI) | payer MEDICARE, OTHER ==
[2023-06-20 11:40] LABS: INR 0.9 (<1.2); Partial Thromboplastin Time 25.1 sec (22.0-30.0); Prothrombin Time 9.9 sec (10.0-12.5)
[2023-06-20 15:13] LABS: HCT 43.9 % (37.2-46.3); HGB 13.4 g/dL (12.0-15.0); MCHC 30.5 g/dL (32.0-37.0); MCV 88.5 FL (80.0-97.0); Mean Platelet Volume 10.8 FL (9.5-12.2); NRBC Per 100 WBC 0 X 10*3/uL (0.00-0.01); Platelet Count 235 X 10*3/uL (140-440); RBC 4.96 X 10*6/uL (4.10-5.20); RDW 16.6 % (11.5-14.5); WBC 5.95 X 10*3/uL (4.50-10.00)
[2023-06-20 15:29] LABS: ALT 22 U/L (8-44); AST 16 U/L (13-35); Albumin 4.3 g/dL (3.8-4.9); Albumin/Globulin Ratio 1.72 Ratio (1.60-3.17); Alkaline Phosphatase 102 U/L (41-126); Blood Urea Nitrogen 9.9 mg/dL (9.0-27.0); Calcium 9.6 mg/dL (8.7-10.3); Carbon Dioxide 24.3 mmol/L (21.6-31.8); Chloride 100 mmol/L (96-109); Globulin 2.5 g/dL (1.6-3.3); Glucose 130 mg/dL (70-110); Potassium 4.2 mmol/L (3.5-5.5); Sodium 136 mmol/L (135-145); Total Bilirubin <0.2 mg/dL (0.3-1.2); Total Protein 6.8 g/dL (6.2-8.2)
== END | disposition home or self-care (01) ==
LOC: LABPAT 10:24
PROVIDERS: ATTEND Orthopaedic Surgery
DX: Z01.812 Encounter for preprocedural laboratory examination (principal); Z22.322 Carrier or suspected carrier of Methicillin resistant Staphylococcus aureus; M16.12 Unilateral primary osteoarthritis, left hip
CPT/HCPCS: 80053; 85027; 85610; 85730; 86850; 86900; 86901; 87070

== ENCOUNTER → 2023-07-26 | Outpatient (CLI) | payer MEDICARE, OTHER ==
[2023-07-26 16:19] LABS: INR 0.9 (<1.2); Partial Thromboplastin Time 25.2 sec (22.0-30.0); Prothrombin Time 9.8 sec (10.0-12.5)
[2023-07-26 18:38] LABS: HCT 38.3 % (37.2-46.3); HGB 12.2 g/dL (12.0-15.0); MCH 28.1 pg (27.0-32.0); MCHC 31.9 g/dL (32.0-37.0); MCV 88.2 FL (80.0-97.0); Mean Platelet Volume 10.5 FL (9.5-12.2); NRBC Per 100 WBC 0 X 10*3/uL (0.00-0.01); Platelet Count 266 X 10*3/uL (140-440); RBC 4.34 X 10*6/uL (4.10-5.20); RDW 15.9 % (11.5-14.5); WBC 8.91 X 10*3/uL (4.50-10.00)
[2023-07-26 18:44] LABS: BUN/Creat Ratio 16.67 Ratio (12.00-20.00); Carbon Dioxide 26.2 mmol/L (21.6-31.8); Chloride 102 mmol/L (96-109); Glucose 94 mg/dL (70-110); Potassium 4.2 mmol/L (3.5-5.5); Sodium 140 mmol/L (135-145)
[2023-07-26 18:45] LABS: ALT 86 U/L (8-44); AST 32 U/L (13-35); Albumin 4.4 g/dL (3.8-4.9); Albumin/Globulin Ratio 1.76 Ratio (1.60-3.17); Alkaline Phosphatase 97 U/L (41-126); Calcium 9.8 mg/dL (8.7-10.3); Globulin 2.5 g/dL (1.6-3.3); Total Bilirubin <0.2 mg/dL (0.3-1.2); Total Protein 6.9 g/dL (6.2-8.2)
== END | disposition home or self-care (01) ==
LOC: LABPAT 14:48
PROVIDERS: ATTEND Orthopaedic Surgery
DX: Z01.812 Encounter for preprocedural laboratory examination (principal); Z22.322 Carrier or suspected carrier of Methicillin resistant Staphylococcus aureus; M16.12 Unilateral primary osteoarthritis, left hip
CPT/HCPCS: 80053; 85027; 85610; 85730; 86850; 86900; 86901; 87070

== ENCOUNTER 2023-08-07 13:24 | Day surgery (SDC) | payer MEDICARE, OTHER ==
[2023-08-02 09:46] VITALS: BMI 39.1
[~2023-08-07 13:24] MED LIST changes: -ACETAMINOPHEN TAB 500 MG TAB PO PRN; -DEXAMETHASONE SOD PHOSPHATE 10 MG/ML 1 ML VIAL IV PRN; -DEXAMETHASONE SOD PHOSPHATE 4 MG/ML 1 ML VIAL IV ONE; -DOCUSATE 100 MG CAP PO PRN; -FAMOTIDINE 20 MG/2 ML VIAL IVP PRN; -HYDROmorphone 0.5 MG/0.5 ML SYRINGE IVP PRN; -KETOROLAC 15 MG/ML 1 ML VIAL IVP PRN; -LACTATED RINGERS 1,000 ML IV SCH; -MIDAZOLAM 2 MG/2 ML VIAL IVP ONE; -ONDANSETRON 4 MG/2 ML VIAL IVP ONE; -ROPIVACAINE/EPI/CLONIDINE/KET 50 ML SYRINGE MISCELLANE PRN; -oxyCODONE ER 10 MG TAB.ER.12H PO PRN
[2023-08-07] MEDS: LACTATED RINGERS 1,000 ML IV SCH (14:06)
[2023-08-07] MEDS: oxyCODONE ER 10 MG TAB.ER.12H PO PRN (14:24)
[2023-08-07] MEDS: ACETAMINOPHEN TAB 500 MG TAB PO PRN (14:24)
[2023-08-07] MEDS: ONDANSETRON 4 MG/2 ML VIAL IVP ONE (14:24)
[2023-08-07] MEDS: DOCUSATE 100 MG CAP PO PRN (14:24)
[2023-08-07] MEDS: DEXAMETHASONE SOD PHOSPHATE 10 MG/ML 1 ML VIAL IV PRN (14:24)
[2023-08-07] MEDS: FAMOTIDINE 20 MG/2 ML VIAL IVP PRN (14:24)
[2023-08-07] MEDS: KETOROLAC 15 MG/ML 1 ML VIAL IVP PRN (14:24)
[2023-08-07] MEDS: MIDAZOLAM 2 MG/2 ML VIAL IVP ONE (14:28)
[2023-08-07] MEDS ORDERED: NALOXONE 0.4 MG/ML 1 ML VIAL IV PRN (14:34)
[2023-08-07] MEDS ORDERED: HYDROmorphone 1 MG/ML 1 ML SYRINGE IVP PRN (14:34)
[2023-08-07] MEDS ORDERED: HYDROmorphone 0.5 MG/0.5 ML SYRINGE IVP PRN (14:34)
[2023-08-07] MEDS ORDERED: ONDANSETRON 4 MG/2 ML VIAL IVP PRN (14:34)
[2023-08-07] MEDS ORDERED: MAGNESIUM HYDROXIDE 2,400 MG/30 ML CUP PO PRN (14:34)
[2023-08-07] MEDS ORDERED: HYDROcodone/APAP 7.5-325MG 1 EACH TAB PO PRN (14:36)
--- NOTE | 2023-08-07 14:42 | P.ANPRN ---
Procedure Note - Anesthesia - Nerve Block Performed Left Brendan Single Date of Procedure: 08/07/23 Procedure Start Time: 14:27 Procedure Stop Time: 14:41 Location of Patient: PreOp Indication: Acute Post-Operative Pain, Requested by Surgeon Specifically requested for management of pain by DrBetty: Shan Lopez Sedation Type: Sedate with meaningful contact maintained Preparation: Sterile Prep Position: Supine Catheter: None Needle Gauge: 21 Ultrasound used to visualize needle placement: Yes Ultrasound used to observe medication spread: Yes Injectate: 0.5% Ropivacaine (see comment for volume) (30 cc + Decadrone 4 mg) Blood Aspirated: No Pain Paresthesia on Injection Noted: No Resistance on Injection: Normal Image Stored and Saved: Yes Events: Uneventful and Well Tolerated
[2023-08-07] MEDS ORDERED: NEOSTIGMINE 1 MG/ML 10 ML VIAL ONE (15:04)
[2023-08-07] MEDS ORDERED: HYDROmorphone (PF) 1 MG/ML ONE (15:04)
[2023-08-07] MEDS ORDERED: LIDOCAINE 1% INJ 10MG/ML (20 ML MDV) ONE (15:04)
[2023-08-07] MEDS ORDERED: MIDAZOLAM 2 MG/2 ML VIAL ONE (15:04)
[2023-08-07] MEDS ORDERED: SUCCINYLCHOLINE CHLORIDE 200 MG/10 ML VIAL IV ONE (15:04)
[2023-08-07] MEDS ORDERED: DEXAMETHASONE SOD PHOSPHATE 4 MG/ML 1 ML VIAL ONE (15:04)
[2023-08-07] MEDS ORDERED: fentaNYL (PF) 50 MCG/ML 2 ML AMP ONE (15:04)
[2023-08-07] MEDS ORDERED: PHENYLEPHRINE-0.9% NACL SYG 1,000 MCG/10 ML SYRINGE ONE (15:04)
[2023-08-07] MEDS ORDERED: ROCURONIUM 10 MG/ML (5 ML VIAL) IV ONE (15:04)
[2023-08-07] MEDS ORDERED: PROPOFOL 10 MG/ML 20 ML VIAL IV ONE (15:04)
[2023-08-07] MEDS ORDERED: ROPIVACAINE 5 MG/ML 30 ML VIAL ONE (15:04)
[2023-08-07] MEDS ORDERED: GLYCOPYRROLATE 0.2 MG/ML 2 ML VIAL ONE (15:04)
[2023-08-07] MEDS: ROPIVACAINE/EPI/CLONIDINE/KET 50 ML SYRINGE MISCELLANE PRN (15:48)
[2023-08-07] MEDS: LACTATED RINGERS 1,000 ML IV ONE (16:41)
[2023-08-07] MEDS: droPERidol 5 MG/2 ML VIAL IVP ONE (17:41)
--- NOTE | 2023-08-07 17:41 | FL ---
EXAMINATION TYPE: FL guidance operating room, XR Hip Limited LT Intraoperative/procedural fluoroscopi c services were provided. Total fluoroscopy time is 58 seconds with a total of 4 submitted images to PACS. Please see the operative/procedural note for further details. DAP: 5. 6691 Gycm2
--- NOTE | 2023-08-07 17:46 | P.OP ---
Date of Procedure: 08/07/23 Preoperative Diagnosis: 1. Severe left hip osteoarthritis 2. BMI 38.9 3. History of DVT Postoperative Diagnosis: Same Procedure(s) Performed: 1. Left direct anterior total hip arthroplasty 2. Application of negative pressure incisional wound VAC left hip, less than 50 cm, incision measuring 15 cm Implants: 1. [place] Trident II Acetabular Cup, Size #48 2. [place] Insignia Size # 5 Femoral Stem, Standard Offset 3. Biolox delta femoral head, 36 mm, +0 mm neck Anesthesia: VERO, regional Surgeon: Shan Lopez Saturation Diver #1: Valentine Jarquin Estimated Blood Loss (ml): 400 IV fluids (ml): 1,300 Pathology: none sent Condition: stable Disposition: PACU Indications for Procedure: The patient is a very pleasant 38-year-old female who has advanced bilateral hip arthritis. The patient had failed extensive nonsurgical treatment and had end- stage arthritis on her x-rays with circumferential osteophytes. Since she had incapacitating pain and end-stage arthritis we both agreed to proceed with sta ged hip replacements. She understands the drawbacks given her age and potential for needing a revision in the future. She also voiced her understanding that her elevated BMI places her at a slightly higher risk of having complications. I had a long discussion with the patient in the office on the potential risks and complications of an elective total hip replacement through a direct anterior approach. Risks discussed include, but are certainly not limited to, risks from anesthesia, superficial infection requiring local wound care or antibiotics, deep myke-prosthetic joint infection and the treatment required to eradicate infection, intraoperative fracture, postoperative periprosthetic fracture, damage to local blood vessels or nerves particularly the lateral femoral cutaneous nerve, delayed wound healing requiring local wound care or possibly surgical debridement, hip dislocation, leg length discrepancy, soft tissue irritation around the total hip implant such as iliopsoas tendinitis or trochanteric bursitis, wear and osteolysis from the implants, squeaking or audible noises, groin pain, thigh pain, heterotopic ossification, stiffness, aseptic loosening of the implants, dissatisfaction with surgical outcome, need for revision surgery, DVT, PE, swelling of the operative extremity, acute coronary event, stroke, failure to thrive, and possibly loss of life or limb. The patient understands that while these are the most common complications after an elective hip replacement there are certainly other less common complications possible. They were given ample time to ask questions regarding the potential complications of a hip replacement. Following our discussion the patient provided their verbal and written consent to go forward with an elective total hip replacement. Operative Findings: severe arthritis with complete loss of articular cartilage about the femoral head and acetabulum. It were circumferential osteophytes around the acetabulum which had to be sequentially removed prior to reaming and after the cup was placed. Description of Procedure: The patient was identified in the preoperative holding area and the correct hip was marked with my initials. I reviewed the procedure and consent with the patient. All of their questions were answered. The patient was then brought back into the operating room by anesthesia. While on the [facility] anesthesia was administered by the anesthesia team. Preoperative antibiotics and tranexamic acid were also given. After the patient was under anesthesia I examined their ankles to determine their preoperative leg length discrepancy. The skin over the anterior aspect of the hip was shaved to remove hair over the site of planned incision. Both feet and ankles were padded with webril and boots for the Clinton were applied. The patient was then carefully transferred onto the Clinton table. A perineal post was immediately placed. The arms were placed on arm ho lders and were well-padded. Both boots were secured to the spars on the Clinton table. The patient was positioned so that the pelvis was centered over the post. Nonsterile drapes were applied. A timeout was performed identifying the correct patient, operative extremity, and procedure. At this point fluoroscopy was brought in to take preoperative images of the pelvis and operative hip. Using the standing AP pelvis from the office as a template, a comparable image was obtained with fluoroscopy. A metallic bar was used to create a bi-ischial line for use as a reference to leg length adjustments during the procedure. Global offset was also measured on both the operative and nonoperative leg. Fluoroscopy was then brought out and a pre-scrub using a chlorhexidine scrub brush was performed. The operative limb was then prepped and draped in the standard sterile fashion. An anterior longitudinal incision was made lateral and distal to the ASIS. The skin and subcutaneous tissues were incised sharply. The underlying tensor fascia was identified and incised in its midportion. The fascia was dissected free from the underlying muscle and the muscle belly was retracted. A blunt tipped cobra retractor was placed over the superior neck under the muscle fibers of the gluteus minimus. The deep enveloping fascia of the tensor was incised. The anterior leash of vessels were then identified and cauterized. The fascia between the rectus and the capsule was then incised and the pre-capsular fat was excised. A second Cobra was placed inferior to the neck. The interval between the rectus and iliocapsularis and the hip capsule was developed and a retractor was placed carefully over the anterior rim of the acetabulum. A T-shaped anterior capsulotomy was performed. The superior capsular leaflet was left in place in the inferior capsular flap was excised. The Cobra retractors were placed intracapsularly. We then made a femoral neck osteotomy according to preoperative and intraoperative templating and confirmed the level of the osteotomy using fluoroscopic imaging. The femoral head was removed, passed off to the back table, and sized. The superior capsular flap was excised. Retractors were placed circumferentially exposing the acetabulum. We then circumferentially debrided the acetabulum free of labrum and osteophytes. The pulvinar was removed to fully visualize the cotyloid fossa. We then sequentially reamed to achieve peripheral fit and excellent bleeding subchondral bone. The socket was thoroughly irrigated. The acetabular component was impacted into the appropriate position using fluoroscopy to guide version, inclination, and depth of insertion taking care to have a comparable image of the AP pelvis to the standing image taken in the office. An excellent press-fit was achieved and final position was confirmed using fluoroscopy. The press fit was augmented with bony cancellus dome screws. The liner was then impacted into the socket. Attention was then turned to the femur. The remnant dorsal lateral capsule was excised. The short external rotators were visible and protected. A bone hook was used to confirm appropriate translation of the trochanter away from the acetabulum. The leg was then extended and adducted and the bone hook was used to elevate the femur for broaching. A box osteotome and blunt tipped canal sound was then utilized to gain access to the femoral canal. We then sequentially broached the femur in appropriate anteversion until excellent torsional stability was achieved. The neck cut was brought flush to the trial broach with a calcar planar. A trial neck and head were then placed onto the broach and the hip was atraumatically reduced under direct visualization. External rotation to 90 was performed to assess stability. Fluoroscopy was brought in. An AP and lateral fluoroscopic image of the proximal femur was obtained to assess position and fill of the trial broach. An AP of the pelvis was then obtained and matched to the preoperative image taken. A bi-ischial bar was then placed and measurements were taken to assess changes in length and offset. The hip was then carefully dislocated, the proximal femur was exposed, and the trial implants were removed. The wound and proximal femur was thoroughly irrigated using sterile saline and pulsatile lavage. The final femoral implant was dispensed and gently tapped into place generating an excellent press-fit. The trunnion was cleansed and the final head was tapped into place to engage the Tovar taper. The acetabulum was irrigated and visu alized to be free of debris. The hip was carefully reduced. Stability was checked clinically with external rotation to 90 and there was no evidence of instability. Final fluoroscopic images were taken. The wound was then thoroughly irrigated and soaked with a dilute Betadine rinse for 3 minutes. 3 L of sterile saline was irrigated through the wound using pulsatile lavage. Local anesthetic cocktail was injected into the soft tissues around the surgical field. The wound was then closed in layers. An incisional wound VAC was placed over the closed incision to help lower the risk of delayed wound healing and surgical site infection. After connecting the wound VAC to it's power source, there was an excellent seal. The drapes were taken down and the patient was carefully transferred off of the Clinton table. Following removal of the boots the leg lengths felt acceptable. The patient was then taken to recovery room having tolerated the procedure well. Valentine Jarquin PA-C was required as a skilled higher level teaching assistant due to the complexity of surgery for positioning, exposure, draping,retraction, closure of wound, and application of dressing. PLAN: The patient can weight-bear as tolerated on the operative extremity. 2 doses of postoperative antibiotics. DVT prophylaxis with Eliquis given her history of DVT. She will be discharged home on Doxycycline 100 mg BID x 2 weeks. Physical therapy for gait training. Discontinue drain postoperative day #1 if output is less than 100 mL per shift.
[2023-08-07] MEDS: HYDROmorphone 0.5 MG/0.5 ML SYRINGE IVP PRN (18:22)
[2023-08-07] MEDS: DEXAMETHASONE SOD PHOSPHATE 4 MG/ML 1 ML VIAL IV ONE (20:09)
[2023-08-07] MEDS: SODIUM CHLORIDE 0.9% 1,000 ML IV SCH (21:59)
[2023-08-07] MEDS: SENNOSIDES-DOCUSATE SODIUM 1 EACH TAB PO SCH (22:00)
[2023-08-07] MEDS: HYDROcodone/APAP 7.5-325MG 1 EACH TAB PO PRN (23:01)
[2023-08-08] MEDS ORDERED: IPRATROPIUM-ALBUTEROL 3 ML NEB INHALATION PRN (01:57)
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
[2023-08-08] MEDS: HYDROmorphone 0.5 MG/0.5 ML SYRINGE IVP PRN (02:29)
--- NOTE | 2023-08-08 07:55 | P.DS ---
Providers Attending physician: Shan Lopez Consults: 08/07/23 14:34 Consult Physician Routine Consulting Provider: Leidy Gleason Consult Reason/Comments: medical management Do you want consulting provider notified?: Yes Primary care physician: Norman Hernandez MD Hospital Course: The patient is a very pleasant 38-year-old female who was admitted under my care yesterday and underwent uncomplicated total hip replacement. Following surgery she was transferred to the orthopedic floor. She received 2 doses of postoperative antibiotics. Due to her history of DVT she was started on Eliquis. On postoperative day #1 she was seen at bedside and was doing well. She had minimal pain in her left hip. Femoral nerve function was intact. She is able to actively plantarflex and dorsiflex her ankle and her toes. Internal medicine was consulted for preoperative medical management. Physical therapy was consulted for gait training Plan - Discharge Summary Discharge Rx Participant: No New Discharge Prescriptions: New HYDROcodone/APAP 7.5-325MG [[place] 7.5-325] 1 - 2 tab PO Q6H PRN #32 tab PRN Reason: Pain Apixaban [Eliquis] 2.5 mg PO BID 30 Days #60 tab Sennosides [Senokot] 2 tab PO DAILY PRN #60 tablet PRN Reason: Constipation Doxycycline Monohydrate 100 mg PO BID #28 cap No Action hydroCHLOROthiazide [Hydrochlorothiazide] 12.5 mg PO QAM lisinopriL 40 mg PO QAM Discharge Medication List hydroCHLOROthiazide [Hydrochlorothiazide] 12.5 mg PO QAM 05/16/23 [History] lisinopriL 40 mg PO QAM 08/02/23 [History] Apixaban [Eliquis] 2.5 mg PO BID 30 Days #60 tab 08/07/23 [Rx] HYDROcodone/APAP 7.5-325MG [[place] 7.5-325] 1 - 2 tab PO Q6H PRN #32 tab 08/07/23 [Rx] Sennosides [Senokot] 2 tab PO DAILY PRN #60 tablet 08/07/23 [Rx] Doxycycline Monohydrate 100 mg PO BID #28 cap 08/08/23 [Rx] Follow up Appointment(s)/Referral(s): Shan Lopez MD [Medical Doctor] - 2 Weeks Activity/Diet/Wound Care/Special Instructions: 1. Weight-bear as tolerated on your operative extremity unless instructed otherwise. Use a walker or other assistive device to ambulate. 2. Leave surgical dressing in place. If your dressing becomes saturated with blood, there is drainage, or the dressing becomes loose please contact the office. 3. It is okay to shower with your surgical dressing, but do not submerge in water (no hot tubs, bath's, swimming etc.) 4. Make sure to take her blood clot prevention medication as prescribed (aspir in, Eliquis, Xarelto, and Plavix are commonly prescribed medications for blood clot prevention) 5. While taking [place] or Percocet for pain make sure you're taking a stool softener (Colace) and drink lots of water. 6. Keep all follow-up appointments as scheduled. You will usually be seen in 1-2 weeks following surgery. 7. Please contact the office with any questions or concerns [phone] Discharge Disposition: HOME SELF-CARE
[2023-08-08 08:31] VITALS: BP 107/68; PULSE 66; RESP 18; TEMP 98.1
[2023-08-08] MEDS: APIXABAN 5 MG TAB PO SCH (09:14)
[2023-08-08] MEDS: lisinopriL 20 MG TAB PO SCH (09:23)
--- NOTE | 2023-08-08 11:11 | P.PN ---
Subjective Progress Note Date: 08/08/23 Hospital course: Patient is a very pleasant 38-year-old female with a past medical history of hypertension, asthma, rheumatoid arthritis, and osteoarthritis. She is currently admitted under orthopedic surgery team status post left total hip arthroplasty secondary to severe left hip osteoarthritis. Surgical procedure was completed by Dr. Lopez on 08/07/2023. We were consulted for medical management throughout patient's hospitalization. Physical exam: Patient seen and fully evaluated at bedside. She is postoperative day 1 and appears to be doing well. Patient reports only mild pain but states it is controlled with current pain medication regimen. She denies experiencing any postoperative nausea or vomiting and is tolerating oral intake. Patient reports urinating without any difficulties. She denies having any headache, lightheadedness, dizziness, chest pain, palpitations, or shortness of breath. Vital signs reviewed and stable. General: Nontoxic, no distress and appears stated age. Derm: Skin warm and dry, normal coloration for ethnicity. Head: Atraumatic, normocephalic and symmetric. Eyes: EOMs intact, no lid lag, and anicteric sclera Mouth: no lip lesions, mucus membranes moist Cardiovascular: regular rate and rhythm with normal S1S2, no murmur, positive posterior tibial pulses bilaterally, and cap refill < 2 seconds. Lungs: Respirations even, regular, and unlabored on room air. Lungs CTA bilaterally, no rhonchi, no rales, no wheezing, and no accessory muscle usage. Abdominal: soft, nontender to palpation, no guarding, no appreciable organomegaly Ext: No gross muscle atrophy, no edema, no contractures. Movement and sensation intact. Postsurgical dressing left lateral hip. Neuro: Speech clear, face symmetrical and CN II-XII grossly intact with no noted focal neuro deficits Psych: Alert and oriented to person, place, time, and situation. Appropriate and pleasant affect. Assessment and Plan of Care: Acute postoperative blood loss anemia CBC showing acute postoperative blood loss anemia with hemoglobin of 9.2 and preoperative hemoglobin of 12.2. This is a stable and expected finding, no active bleeding noted. No need for blood transfusion or further interventions at this time. Postoperative leukocytosis CBC showing leukocytosis with WBC count of 18.30. This is believed to be reactive secondary to surgical procedure, patient showing no signs of infection and denies any complaints at this time. No need for further intervention. Hypertension Patient to continue daily medication regimen with lisinopril 40 mg daily and hydrochlorothiazide 12.5 mg daily. Status post left total hip arthroplasty Management by primary admitting orthopedic surgery team including DVT prophylaxis, pain management, weightbearing, and PT/OT. Patient currently on DVT prophylaxis with Eliquis 2.5 mg twice daily. Data reviewed: Postoperative labs reviewed. CBC showing acute postoperative blood loss anemia with hemoglobin of 9.2 and preoperative hemoglobin of 12.2 along with leukocytosis with WBC count of 18.30. BMP showing mild hypocarbia with bicarb of 21.4 otherwise normal findings. Vital signs reviewed and stable. Blood pressure 107/68, heart rate 66, respiratory rate 18, temp 98.1 F, and SpO2 of 99% on room air. Patient is medically optimized and cleared from medical perspective for discharge once cleared by primary admitting orthopedic surgery team. Prescription provided for walker. Thank you for allowing us to participate in the care of this pleasant patient. Do not hesitate to contact us with questions. Someone can be reached from the [facility] hospitalist group all hours of the day at [phone] or via perfect serve. Patient was seen independently by Nurse Pracitioner. This document was prepared using [employer] dictation software. Please allow for errors in oil field caser, while rare they do occur. I reviewed the documentation as provided by the ALFONSO above, who is the original author of this note. I agree with the documented assessment and plan, with the following changes: none Objective - Vital Signs Vital signs: Vital Signs Temp 98.1 F 08/08/23 07:01 Pulse 66 08/08/23 07:01 Resp 18 08/08/23 07:01 BP 107/68 08/08/23 07:01 Pulse Ox 99 08/08/23 07:01 FiO2 Intake & Output 08/07/23 08/08/23 08/08/23 18:59 06:59 18:59 Intake Total 1750 Output Total 400 400 Balance 1350 -400 Weight 112.6 kg Intake: IV 1750 Output: Urine 400 Estimated Blood Loss 400 Other: # Voids 2 - Labs CBC & Chem 7: 08/08/23 06:49 08/08/23 06:49
[2023-08-08 11:16] LABS: HCT 28.8 % (37.2-46.3); HGB 9.2 g/dL (12.0-15.0); MCH 28.8 pg (27.0-32.0); MCHC 31.9 g/dL (32.0-37.0); MCV 90.3 FL (80.0-97.0); NRBC Per 100 WBC 0 X 10*3/uL (0.00-0.01); Platelet Count 258 X 10*3/uL (140-440); RBC 3.19 X 10*6/uL (4.10-5.20)
[2023-08-08 11:40] LABS: BUN/Creat Ratio 14.38 Ratio (12.00-20.00); Blood Urea Nitrogen 11.5 mg/dL (9.0-27.0); Calcium 8.5 mg/dL (8.7-10.3); Carbon Dioxide 21.4 mmol/L (21.6-31.8); Chloride 104 mmol/L (96-109); Glucose 101 mg/dL (70-110); Potassium 4.4 mmol/L (3.5-5.5); Sodium 137 mmol/L (135-145)
[2023-08-08 12:04] LABS: Basophils # (A) 0.03 X 10*3/uL (0.00-0.10); Basophils % (A) 0.2 %; Eosinophils # (A) 0.36 X 10*3/uL (0.04-0.35); Lymphocytes # (A) 1.89 X 10*3/uL (0.90-5.00); Lymphocytes % (A) 10.3 %; Microcytosis (M) 2+; Monocytes # (A) 1.55 X 10*3/uL (0.20-1.00); Monocytes % (A) 8.5 %; Neutrophils # (A) 14.41 X 10*3/uL (1.80-7.70); Neutrophils % (A) 78.7 %
== END 2023-08-08 11:18 | disposition home or self-care (01) ==
LOC: OR 13:24 → 4SSUR 17:15 → OR 08-08 11:18
PROVIDERS: ATTEND Orthopaedic Surgery
DX: M16.12 Unilateral primary osteoarthritis, left hip (principal); G89.18 Other acute postprocedural pain; I10 Essential (primary) hypertension; F10.90 Alcohol use, unspecified, uncomplicated; F17.210 Nicotine dependence, cigarettes, uncomplicated; Z88.2 Allergy status to sulfonamides; Z90.89 Acquired absence of other organs; Z86.718 Personal history of other venous thrombosis and embolism; Z82.49 Family history of ischemic heart disease and other diseases of the circulatory system; Z79.899 Other long term (current) drug therapy
CPT/HCPCS: 97161; 97166; 64447; 81025; 80048; 85025; 73501; 27130; C1776; J2250; J1100; J0690 ×2; J2405; J3490; J1885; J1170 ×2; J1790

== ENCOUNTER 2023-08-22 17:42 | Emergency (ER) | payer MEDICARE, OTHER ==
[2023-08-22 18:38] LABS: Anisocytosis Slight; Basophils % (A) 0 %; Eosinophils # (A) 0.2 k/uL (0-0.7); Eosinophils % (A) 1 %; HCT 32.1 % (34.0-46.0); HGB 10.3 gm/dL (11.4-16.0); Hypochromasia Slight; Lymphocytes % (A) 25 %; MCH 28.2 pg (25.0-35.0); Mean Platelet Volume 7.7; Monocytes # (A) 0.7 k/uL (0-1.0); Monocytes % (A) 6 %; Neutrophils # (A) 7.7 k/uL (1.3-7.7); Neutrophils % (A) 66 %; Platelet Count 516 k/uL (150-450); Poikilocytosis Slight; RBC 3.65 m/uL (3.80-5.40); WBC 11.7 k/uL (3.8-10.6)
[2023-08-22] MEDS: SODIUM CHLORIDE 0.9% 1,000 ML IV STA (18:40)
[2023-08-22] MEDS: ONDANSETRON 4 MG/2 ML VIAL IVP STA (18:40)
[2023-08-22] MEDS: PANTOPRAZOLE 40 MG/10 ML VIAL IVP STA (18:42)
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
[2023-08-22 18:54] LABS: ALT 24 U/L (4-34); AST 20 U/L (14-36); African American GFR (CKD) >90 (>60 ml/min/1.73 sqM); Albumin 3.6 g/dL (3.5-5.0); Alkaline Phosphatase 147 U/L (38-126); Amylase 49 U/L (30-110); Anion Gap 11 mmol/L; Blood Urea Nitrogen 10 mg/dL (7-17); Calcium 9.3 mg/dL (8.4-10.2); Carbon Dioxide 20 mmol/L (22-30); Chloride 103 mmol/L (98-107); Glucose 119 mg/dL (74-99); Lipase 79 U/L (23-300); Non-African American GFR(CKD) >90 (>60 ml/min/1.73 sqM); Potassium 3.4 mmol/L (3.5-5.1); Sodium 134 mmol/L (137-145); Total Bilirubin 0.1 mg/dL (0.2-1.3); Total Protein 6.3 g/dL (6.3-8.2)
[2023-08-22 19:04] LABS: Appearance,Urine Clear (Clear); Bilirubin,Urine Negative (Negative); Blood,Urine Moderate (Negative); Color,Urine Colorless; Glucose,Urine (UA) Negative (Negative); Hyaline Casts,Urine 1 /lpf (0-2); Ketones,Urine Negative (Negative); Leukocyte Esterase,Urine Trace (Negative); Mucus,Urine Rare /hpf; Nitrite,Urine Negative (Negative); Protein,Urine Negative (Negative); RBC,Urine 16 /hpf (0-5); Specific Gravity,Urine 1.013 (1.001-1.035); Squamous Epithelial Cell,Urine 4 /hpf (0-4); Urobilinogen,Urine <2.0 mg/dL (<2.0); WBC,Urine 8 /hpf (0-5)
--- NOTE | 2023-08-22 19:34 | US ---
EXAMINATION TYPE: US abdomen limited DATE OF EXAM: 08/22/2023 COMPARISON: NONE CLINICAL INDICATION: Female, 38 years old with history of epigastric pain; epigastric pain x 3 days TECHNIQUE: Multiple sonographic images of the right upper quadrant are obtained. FINDINGS: Limited examination due to decreased visualization secondary to body habitus and patient inability to roll on to side. EXAM MEASUREMENTS: Liver Length: 20.6 cm Gallbladder Wall: Gallbladder not visualized. CBD: 0.36 cm Right Kidney: 11.8 x 5.5 x 5.0 cm REPAIR SPECIALIST NOTES: Pancreas: wnl Liver: Hepatomegaly; diffusely coarsened echotexture throughout the liver. Gallbladder: Gallbladder not visualized. Pt states she ate 1 hour ago Evidence for sonographic Bustillo's sign: No CBD: wnl Right Kidney: wnl IMPRESSION: 1. No acute sonographic process. 2. Hepatomegaly with evidence of hepatic steatosis.
--- NOTE | 2023-08-22 19:55 | XR ---
EXAMINATION TYPE: XR KUB DATE OF EXAM: 08/22/2023 CLINICAL HISTORY: Pain for 2 days TECHNIQUE: 2 upright views were obtained. COMPARISON: 01/03/2017 FINDINGS: Visualized lung bases and pleural spaces are negative for acute findings. Scattered gas is seen in non-distended small bowel loops. Gas and fecal material is seen in non-dist ended colon. There is no visceromegaly, pneumoperitoneum, or abnormal calcifications. IMPRESSION: No acute radiographic process.
[2023-08-22 21:05] VITALS: BP 134/79; PULSE 78; RESP 18; TEMP 98.1
== END 2023-08-22 20:47 | disposition home or self-care (01) ==
LOC: EC 17:42
DX: K29.70 Gastritis, unspecified, without bleeding (principal); F12.90 Cannabis use, unspecified, uncomplicated; Z87.891 Personal history of nicotine dependence; Z88.2 Allergy status to sulfonamides
CPT/HCPCS: 36415; 80053; 82150; 83690; 85025; 81001; 81025; 74018; 76705; 99284; 96374; 96375; 96361; J2405; C9113

== ENCOUNTER 2023-11-02 19:12 | Emergency (ER) | payer MEDICARE, OTHER ==
[2023-11-02 20:40] VITALS: RESP 18
[2023-11-02] MEDS: DIPH,PERTUS(ACELL)TETVAC-LF 0.5 ML VIAL IM ONE (21:57)
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
[2023-11-02] MEDS: ACETAMINOPHEN TAB 500 MG TAB PO STA (23:07)
[2023-11-02] MEDS: IBUPROFEN 600 MG TAB PO STA (23:09)
[2023-11-02 23:14] VITALS: BP 173/101; PULSE 78; TEMP 97.9
== END 2023-11-02 23:14 | disposition home or self-care (01) ==
LOC: EC 19:12
DX: S51.812A Laceration without foreign body of left forearm, initial encounter (principal); Z23 Encounter for immunization; Z88.2 Allergy status to sulfonamides; Z87.891 Personal history of nicotine dependence; W26.8XXA Contact with other sharp object(s), not elsewhere classified, initial encounter
CPT/HCPCS: 90471; 90715; 99283

== ENCOUNTER 2023-11-04 23:27 | Emergency (ER) | payer MEDICARE, OTHER ==
[2023-11-04 23:35] VITALS: TEMP 97.9
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
[2023-11-05] MEDS: ONDANSETRON 4 MG/2 ML VIAL IVP STA (02:03)
[2023-11-05] MEDS: ACETAMINOPHEN TAB 500 MG TAB PO STA (02:04)
[2023-11-05] MEDS: SODIUM CHLORIDE 0.9% 1,000 ML BAG IV STA (02:04)
[2023-11-05 02:23] LABS: Basophils % (A) 1 %; Eosinophils # (A) 0.2 k/uL (0-0.7); Eosinophils % (A) 3 %; HCT 33.5 % (34.0-46.0); HGB 10.4 gm/dL (11.4-16.0); Hypochromasia Moderate; Lymphocytes # (A) 2.1 k/uL (1.0-4.8); Lymphocytes % (A) 26 %; MCH 23.8 pg (25.0-35.0); MCHC 31.2 g/dL (31.0-37.0); MCV 76.4 fL (80.0-100.0); Microcytosis Slight; Monocytes # (A) 0.6 k/uL (0-1.0); Monocytes % (A) 7 %; Neutrophils # (A) 4.8 k/uL (1.3-7.7); Neutrophils % (A) 61 %; Platelet Count 332 k/uL (150-450); Poikilocytosis Slight; RBC 4.38 m/uL (3.80-5.40); RDW 15.5 % (11.5-15.5); WBC 7.9 k/uL (3.8-10.6)
[2023-11-05 02:27] LABS: Appearance,Urine Cloudy (Clear); Bacteria,Urine Occasional /hpf; Bilirubin,Urine Negative (Negative); Blood,Urine Negative (Negative); Color,Urine Yellow; Glucose,Urine (UA) Negative (Negative); Hyaline Casts,Urine 37 /lpf (0-2); Ketones,Urine Negative (Negative); Leukocyte Esterase,Urine Small (Negative); Mucus,Urine Few /hpf; Nitrite,Urine Negative (Negative); Protein,Urine Trace (Negative); RBC,Urine 2 /hpf (0-5); Specific Gravity,Urine 1.024 (1.001-1.035); Squamous Epithelial Cell,Urine 6 /hpf (0-4); Urobilinogen,Urine <2.0 mg/dL (<2.0); WBC,Urine 12 /hpf (0-5)
[2023-11-05 02:44] LABS: ALT 40 U/L (4-34); AST 42 U/L (14-36); African American GFR (CKD) >90 (>60 ml/min/1.73 sqM); Albumin 4.2 g/dL (3.5-5.0); Alkaline Phosphatase 112 U/L (38-126); Anion Gap 6 mmol/L; Blood Urea Nitrogen 9 mg/dL (7-17); Calcium 9.5 mg/dL (8.4-10.2); Carbon Dioxide 27 mmol/L (22-30); Chloride 102 mmol/L (98-107); Glucose 108 mg/dL (74-99); Non-African American GFR(CKD) >90 (>60 ml/min/1.73 sqM); Potassium 3.1 mmol/L (3.5-5.1); Sodium 135 mmol/L (137-145); Total Bilirubin 0.4 mg/dL (0.2-1.3); Total Protein 6.9 g/dL (6.3-8.2)
[2023-11-05] MEDS: POTASSIUM CHLORIDE 20 MEQ in WATER FOR INJECTION 1 100ML.BAG IVPB STA (03:17)
--- NOTE | 2023-11-05 03:24 | CT ---
EXAM: CT Head Without Intravenous Contrast CLINICAL HISTORY: ITS.REASON CT Reason: lightheadedness, AMS TECHNIQUE: Axial computed tomography images of the head/brain without intravenous contrast. CTDI is 49.2 mGy and DLP is 1154.4 mGy-cm. This CT exam was performed using one or more of the following dose reduction techniques: automated exposure control, adjustment of the mA and/or kV according to patient size, and/or use of iterative reconstruction technique. COMPARISON: No relevant prior studies available. FINDINGS: Brain: No hemorrhage or mass effect. Ventricles: No hydrocephalus. Bones/joints: Unremarkable. Soft tissues: Unremarkable. Sinuses: No air fluid level. Mastoid air cells: Clear. IMPRESSION: No acute hemorrhage, hydrocephalus, or mass effect.
[2023-11-05 05:10] VITALS: RESP 16
[2023-11-05 06:33] VITALS: BP 161/98; PULSE 85
== END 2023-11-05 06:06 | disposition home or self-care (01) ==
LOC: EC 23:27
DX: R42 Dizziness and giddiness (principal); N39.0 Urinary tract infection, site not specified; E87.6 Hypokalemia; I44.0 Atrioventricular block, first degree; Z88.2 Allergy status to sulfonamides; Z87.891 Personal history of nicotine dependence
CPT/HCPCS: 99284; 96365; 96366 ×2; 96375; 96361; 36415; 93005; 80053; 85025; 81001; 81025; 87636; 70450; J3480; J2405

== ENCOUNTER 2023-11-12 19:50 | Emergency (ER) | payer MEDICARE, OTHER ==
[2023-11-12 20:10] VITALS: RESP 18; TEMP 98.1
[2023-11-12 23:29] LABS: Basophils % (A) 0 %; Eosinophils # (A) 0.1 k/uL (0-0.7); Eosinophils % (A) 2 %; HCT 33.1 % (34.0-46.0); Hypochromasia Moderate; Lymphocytes # (A) 2.5 k/uL (1.0-4.8); Lymphocytes % (A) 28 %; MCH 22.9 pg (25.0-35.0); MCHC 30.2 g/dL (31.0-37.0); MCV 75.8 fL (80.0-100.0); Mean Platelet Volume 8.3; Microcytosis Slight; Monocytes # (A) 0.5 k/uL (0-1.0); Monocytes % (A) 5 %; Neutrophils # (A) 5.8 k/uL (1.3-7.7); Neutrophils % (A) 64 %; Platelet Count 295 k/uL (150-450); Poikilocytosis Slight; RBC 4.37 m/uL (3.80-5.40); RDW 15.9 % (11.5-15.5); WBC 9.1 k/uL (3.8-10.6)
[2023-11-12 23:33] LABS: ALT 16 U/L (4-34); African American GFR (CKD) >90 (>60 ml/min/1.73 sqM); Albumin 3.9 g/dL (3.5-5.0); Anion Gap 6 mmol/L; Blood Urea Nitrogen 6 mg/dL (7-17); Calcium 9.2 mg/dL (8.4-10.2); Carbon Dioxide 27 mmol/L (22-30); Chloride 103 mmol/L (98-107); Glucose 96 mg/dL (74-99); Non-African American GFR(CKD) >90 (>60 ml/min/1.73 sqM); Sodium 136 mmol/L (137-145); Total Bilirubin 0.4 mg/dL (0.2-1.3); Total Protein 6.6 g/dL (6.3-8.2)
[2023-11-12 23:38] LABS: AST 32 U/L (14-36); Alkaline Phosphatase 83 U/L (38-126); Magnesium 2.1 mg/dL (1.6-2.3); Potassium 3.3 mmol/L (3.5-5.1)
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
[2023-11-13 00:03] VITALS: BP 166/109; PULSE 80
== END 2023-11-13 00:13 | disposition home or self-care (01) ==
LOC: EC 19:50
DX: K92.1 Melena (principal); Z87.891 Personal history of nicotine dependence; Z88.2 Allergy status to sulfonamides
CPT/HCPCS: 36415; 80053; 82272; 83605; 83735; 85025; 85730; 99284

== ENCOUNTER → 2023-11-27 | Outpatient (CLI) | payer MEDICARE, OTHER ==
--- NOTE | 2023-11-27 14:24 | CA ---
Transthoracic Echo Report Name: Terra Jade Age: 38 Gender: F : 1985 Exam Date: 11/27/2023 13:25 Exam Location: [place] [facility] Ht (in): 67 Wt (lb): 245 Ordering Physician: Ted Quarles MD Attending/Referring Phys: Ted Quarles MD Staff Nurse [facility] [employer] [facility] Valeri Jane [facility] Procedure CPT: Indications: R01.1 CARDIAC MURMUR, UNSPECIFIED Cardiac Hx: Technical Quality: Fair Contrast 1: Total Dose (mL): Contrast 2: Total Dose (mL): MEASUREMENTS (Male / Female) Normal Values 2D ECHO LV Diastolic Diameter PLAX 3.8 cm 4.2 - 5.9 / 3.9 - 5.3 cm LV Systolic Diameter PLAX 3.5 cm IVS Diastolic Thickness 1.2 cm 0.6 - 1.0 / 0.6 - 0.9 cm LVPW Diastolic Thickness 1.2 cm 0.6 - 1.0 / 0.6 - 0.9 cm LV Relative Wall Thickness 0.6 RV Internal Dim ED PLAX 2.3 cm LA Systolic Diameter LX 4.2 cm 3.0 - 4.0 / 2.7 - 3.8 cm LV Diastolic Volume MOD BP 98.5 cm??? 67 - 155 / 56 - 104 cm??? LV Systolic Volume MOD BP 49.2 cm??? 22 - 58 / 19 - 49 cm??? LV Ejection Fraction MOD BP 50.1 % >= 55 % LV Cardiac Index MOD BP 1558.3 cm???/min???m??? LV Diastolic Volume MOD 4C 87.7 cm??? LV Systolic Volume MOD 4C 41.8 cm??? LV Ejection Fraction MOD 4C 52.3 % LV Cardiac Index MOD 4C 1448.6 cm???/min???m??? LV Diastolic Length 4C 8.6 cm LV Systolic Length 4C 7.7 cm LV Diastolic Volume MOD 2C 106.2 cm??? LV Systolic Volume MOD 2C 54.6 cm??? LV Ejection Fraction MOD 2C 48.6 % LV Cardiac Index MOD 2C 1630.0 cm???/min???m??? LV Diastolic Length 2C 8.2 cm LV Systolic Length 2C 7.2 cm LA Volume 57.0 cm??? 18 - 58 / 22 - 52 cm??? LA Volume Index 24.3 cm???/m??? 16 - 28 cm???/m??? M-MODE Aortic Root Diameter MM 2.7 cm LA Systolic Diameter MM 4.0 cm LA Ao Ratio MM 1.5 AV Cusp Separation MM 2.1 cm DOPPLER AV Peak Velocity 160.3 cm/s AV Peak Gradient 10.3 mmHg AV Mean Velocity 115.5 cm/s AV Mean Gradient 5.9 mmHg AV Velocity Time Integral 36.8 cm LVOT Peak Velocity 133.5 cm/s LVOT Peak Gradient 7.1 mmHg LVOT Velocity Time Integral 28.9 cm MV Area PHT 2.5 cm??? Mitral E Point Velocity 108.4 cm/s Mitral A Point Velocity 86.0 cm/s Mitral E to A Ratio 1.3 MV Deceleration Time 299.3 ms FINDINGS Left Ventricle Left ventricular ejection fraction is estimated at 55-60 %. Mildly increased septal wall thickness. Mildly increased posterior wall thickness. Normal left ventricular systolic function with no obvious regional wall motion abnormalities. Right Ventricle Normal right ventricular size and function. Unable to estimate the right ventricular systolic pressure. Right Atrium Normal right atrial size. Left Atrium Mildly increased left atrial diameter. Mildly increased left atrial volume. Mitral Valve Structurally normal mitral valve. Trace mitral regurgitation. No mitral stenosis. Aortic Valve Aortic valve not well visualized. No aortic valve stenosis or regurgitation. Tricuspid Valve Structurally normal tricuspid valve. Trace tricuspid regurgitation. No tricuspid stenosis. Pulmonic Valve Structurally normal pulmonic valve. Trace pulmonic regurgitation. No pulmonic stenosis. Pericardium No pericardial or pleural effusion. Aorta Normal size aortic root and proximal ascending aorta. CONCLUSIONS Left ventricular ejection fraction 55-60% Mildly increased left ventricular wall thickness Mildly dilated left atrium Trace mitral regurgitation Trace tricuspid regurgitation No pericardial effusion Previewed by: Dr. Beau Bhatia DO (Electronically Signed) Final Date: 27 November 2023 14:23
== END | disposition home or self-care (01) ==
LOC: RADECHMAIN 13:10
PROVIDERS: ATTEND Family Medicine
DX: R01.1 Cardiac murmur, unspecified (principal); I34.0 Nonrheumatic mitral (valve) insufficiency; I07.1 Rheumatic tricuspid insufficiency
CPT/HCPCS: 93306

== ENCOUNTER 2024-02-13 20:04 | Emergency (ER) | payer MEDICARE, OTHER ==
[2024-02-13 20:10] VITALS: BP 103/68; PULSE 75; RESP 18; TEMP 98
--- NOTE | 2024-02-13 20:33 | XR ---
PROCEDURE: XR ankle complete LT - 3V DATE AND TIME: 02/13/2024 8:20 PM CLINICAL INDICATION: PHH; pain TECHNIQUE: Department protocol COMPARISON: 09/25/2018 FINDINGS / IMPRESSION: No joint effusion or other acute soft tissue findings. No acute fracture/malalignment. The mortise is intact. No focal osseous lesions. Multifocal mild and moderate posterior arthritis changes seen at several articulations of the midfoot and hindfoot. Smoothly marginated calcaneal enthesophytes seen at the Achilles tendon and plantar ap oneurosis insertions. [facility], , 02/13/2024 8:30 PM
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
[2024-02-13] MEDS: ACET/COD 300 MG/30 MG STARTER PACK 6 TAB BTL PO STA (21:10)
== END 2024-02-13 21:11 | disposition home or self-care (01) ==
LOC: EC 20:04
CPT/HCPCS: 99283

== ENCOUNTER 2024-03-26 13:37 | Emergency (ER) | payer MEDICARE, OTHER ==
[2024-03-26 13:43] VITALS: TEMP 97.7
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
[2024-03-26] MEDS: ACETAMINOPHEN TAB 500 MG TAB PO STA (14:32)
[2024-03-26] MEDS: METOCLOPRAMIDE 5 MG/ML 2 ML VIAL IVP STA (14:32)
[2024-03-26] MEDS: lisinopriL 10 MG TAB PO STA (14:32)
[2024-03-26] MEDS: SODIUM CHLORIDE 0.9% 1,000 ML IV STA (14:32)
[2024-03-26] MEDS: KETOROLAC 15 MG/ML 1 ML VIAL IVP STA (14:33)
[2024-03-26 14:42] LABS: Anisocytosis Slight; Basophils % (A) 0 %; Eosinophils # (A) 0.2 k/uL (0-0.7); Eosinophils % (A) 2 %; HGB 11.4 gm/dL (11.4-16.0); Hypochromasia Marked; Lymphocytes # (A) 1.9 k/uL (1.0-4.8); Lymphocytes % (A) 24 %; MCH 22.8 pg (25.0-35.0); MCHC 30.9 g/dL (31.0-37.0); MCV 73.8 fL (80.0-100.0); Mean Platelet Volume 6.9; Microcytosis Moderate; Monocytes # (A) 0.4 k/uL (0-1.0); Monocytes % (A) 5 %; Neutrophils # (A) 5.3 k/uL (1.3-7.7); Neutrophils % (A) 68 %; Platelet Count 273 k/uL (150-450); RBC 5.02 m/uL (3.80-5.40); RDW 17.2 % (11.5-15.5); WBC 7.8 k/uL (3.8-10.6)
[2024-03-26 14:52] LABS: ALT 68 U/L (4-34); AST 48 U/L (14-36); African American GFR (CKD) >90 (>60 ml/min/1.73 sqM); Albumin 4.3 g/dL (3.5-5.0); Alkaline Phosphatase 94 U/L (38-126); Anion Gap 8 mmol/L; Blood Urea Nitrogen 7 mg/dL (7-17); Calcium 9.1 mg/dL (8.4-10.2); Carbon Dioxide 24 mmol/L (22-30); Chloride 107 mmol/L (98-107); Glucose 121 mg/dL (74-99); INR 0.9 (<1.2); Magnesium 2.2 mg/dL (1.6-2.3); Non-African American GFR(CKD) >90 (>60 ml/min/1.73 sqM); Partial Thromboplastin Time 26.6 sec (22.0-30.0); Potassium 3.6 mmol/L (3.5-5.1); Prothrombin Time 10.3 sec (10.0-12.5); Sodium 139 mmol/L (137-145); Total Bilirubin 0.2 mg/dL (0.2-1.3); Total Protein 7.1 g/dL (6.3-8.2)
--- NOTE | 2024-03-26 16:07 | XR ---
EXAMINATION TYPE: XR chest 2V DATE OF EXAM: 03/26/2024 3:29 PM COMPARISON: 07/03/2022 CLINICAL INDICATION: Female, 38 years old with history of chest pain/pressure, TECHNIQUE: XR chest 2V view(s) obtained. FINDINGS: The heart size is normal. The pulmonary vasculature is normal. The lungs are clear. IMPRESSION: 1. No acute pulmonary process. [facility], , 03/26/2024 4:05 PM
[2024-03-26 16:46] VITALS: BP 142/78; PULSE 77; RESP 18
== END 2024-03-26 16:45 | disposition home or self-care (01) ==
LOC: SUPCPDRO 13:37 → EC 13:37
DX: G43.909 Migraine, unspecified, not intractable, without status migrainosus (principal); I10 Essential (primary) hypertension; Z87.891 Personal history of nicotine dependence; Z88.2 Allergy status to sulfonamides
CPT/HCPCS: 36415; 93005; 80053; 83735; 84484; 85025; 85610; 85730; 71046; 99284; 96374; 96375; 96361; J2765; J1885

== ENCOUNTER 2024-09-08 18:13 | Emergency (ER) | payer MEDICARE, OTHER ==
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
--- NOTE | 2024-09-08 20:19 | XR ---
EXAMINATION TYPE: XR knee complete RT DATE OF EXAM: 09/08/2024 8:12 PM COMPARISON: 01/04/2019 CLINICAL INDICATION: Female, 39 years old with history of Right knee pain, edema, no trauma, pain TECHNIQUE: 3 view(s) obtained. FINDINGS: No acute fracture or dislocation evident. No joint effusion is evident. Small calcification is in the medial knee at the level of the distal femur. Joint spaces are preserved. Soft tissues are otherwise unremarkable. IMPRESSION: 1. No acute osseous abnormality right knee [facility], , 09/08/2024 8:17 PM
[2024-09-08] MEDS: KETOROLAC 15 MG/ML 1 ML VIAL IM STA (20:31)
[2024-09-08] MEDS: LIDOCAINE 4% PATCH TOPICAL ONE (20:31)
[2024-09-08 20:49] VITALS: BP 156/79; PULSE 71; RESP 18; TEMP 98.2
== END 2024-09-08 20:48 | disposition home or self-care (01) ==
LOC: EC 18:13
DX: M25.561 Pain in right knee (principal); Z87.891 Personal history of nicotine dependence; Z88.2 Allergy status to sulfonamides
CPT/HCPCS: 73562; 99283; 96372; J1885